=== PATIENT | female | born 1945 | race Caucasian/White ===

== ENCOUNTER 2016-07-05 08:45 | Inpatient (IN) | payer MEDICARE ==
[~2016-07-05] VITALS: Ht 154.9 cm; Wt 43.5 kg
[~2016-07-05 08:45] MED LIST: ALPR0.5T PO; AMLO5TAB2 PO; ATOR20TA58 PO; CALC-104 PO; CARV12.52 PO; CARV6.252 PO; CEFP200T PO; CITA10TA4 PO; CITA10TA8 PO; CLON1TAB3 PO; CRESTOR10 MG PO; ESOM40CA PO; FURO40TA4 PO; HYDR-2762 PO; LEVO88TA4 PO; LOSA100T2 PO; LOSA100T6 PO; MELO-150 PO; NAPR500T3 PO; PANT40TA5 PO; POTA20TA12 PO; POTA500T5 PO; PROAIR HFA8.5 GM IH; RISE35TA3 PO
--- NOTE | 2016-07-05 08:58 | PHYS DOC ---
Past Medical History Past Medical History: COPD Additional Past Medical Histor: chronic pain, femur fx, hip fx, poor historian Past Surgical History: Appendectomy, Cholecystectomy, Hysterectomy Additional Past Surgical Histo: poor historian Alcohol Use: None Drug Use: None Adult General HPI HPI Patient is a 70 year old female who presents with for failure. According EMS they were called to house where she was laying in bed satting around 70% with her nasal cannula off. She was very confused at that time. Upon presenting to the ER after being bagged by EMS and a nonrebreather now she is alert and somewhat interactive. HEENT her previous chart she has a history of COPD, with an EF of 40-45% on last echo, paroxysmal A. fib, hypertension, coronary disease, previous CVA, dyslipidemia, anemia of chronic disease, hypothyroidism. According to her who just arrived this is different than her baseline. She will not answer questions appropriately and smiles at you. Which is an improvement from what was initially upon arrival. Review of Systems Review of Systems Unable to obtain Current Medications Current Medications Current Medications Medications (Trade) Dose Ordered Sig/Josephine Start Time Stop Time Status Last Admin Dose Admin Albuterol/ Ipratropium (Duoneb) 3 ml 1X ONCE 07/05/16 09:15 07/05/16 09:16 DC 07/05/16 10:40 3 ML Methylprednisolone Sodium Succinate (Solu-Medrol 125mg Vial) 125 mg 1X ONCE 07/05/16 09:00 07/05/16 09:02 DC 07/05/16 09:18 125 MG Allergies Allergies Allergies Coded Allergies Type Severity Reaction Last Updated Verified adhesive Allergy Intermediate Rash 11/12/15 Yes Physical Exam Physical Exam Constitutional: Well developed, well nourished, no acute distress, non-toxic appearance. [] HENT: Normocephalic, atraumatic, bilateral external ears normal, oropharynx moist, no oral exudates, nose normal. [] Eyes: PERRLA, EOMI, conjunctiva normal, no discharge. [] Neck: Normal range of motion, no tenderness, supple, no stridor. [] Cardiovascular:Heart rate regular rhythm, no murmur [] Lungs & Thorax: Bilateral breath sounds coarse and decreased at the bases to auscultation [] Abdomen: Bowel sounds normal, soft, no tenderness, no masses, no pulsatile masses. [] Skin: Warm, dry, no erythema, no rash. [] Back: No tenderness, no CVA tenderness. [] Extremities: No tenderness, no cyanosis, no clubbing, ROM intact, no edema. [] Neurologic: Alert and mildly interactive, normal motor function, normal sensory function, no focal deficits noted. [] Current Patient Data Vital Signs Vital Signs Date Time Temp Pulse Resp B/P Pulse Ox O2 Delivery O2 Flow Rate FiO2 07/05/16 10:00 92 21 121/66 87 Nasal Cannula 2 07/05/16 08:45 96.9 96.9 Lab Values Laboratory Tests Test 07/05/16 08:56 07/05/16 09:00 O2 Saturation 99% (92-99) Arterial Blood pH 7.32 (7.35-7.45) L Arterial Blood pCO2 at Patient Temp 80mmHg (35-46) *H Arterial Blood pO2 at Patient Temp 331mmHg (65-108) H Arterial Blood HCO3 40mmol/L (21-28) H Arterial Blood Base Excess 11mmol/L (-3-3) H FiO2 100 White Blood Count 9.2x10^3/uL (4.0-11.0) Red Blood Count 4.27x10^6/uL (3.50-5.40) Hemoglobin 13.4g/dL (12.0-15.5) Hematocrit 40.5% (36.0-47.0) Mean Corpuscular Volume 95fL (79-100) Mean Corpuscular Hemoglobin 31pg (25-35) Mean Corpuscular Hemoglobin Concent 33g/dL (31-37) Red Cell Distribution Width 14.2% (11.5-14.5) Platelet Count 168x10^3/uL (140-400) Neutrophils (%) (Auto) 87% (31-73) H Lymphocytes (%) (Auto) 7% (24-48) L Monocytes (%) (Auto) 6% (0-9) Eosinophils (%) (Auto) 0% (0-3) Basophils (%) (Auto) 1% (0-3) Neutrophils # (Auto) 7.9x10^3uL (1.8-7.7) H Lymphocytes # (Auto) 0.6x10^3/uL (1.0-4.8) L Monocytes # (Auto) 0.5x10^3/uL (0.0-1.1) Eosinophils # (Auto) 0.0x10^3/uL (0.0-0.7) Basophils # (Auto) 0.1x10^3/uL (0.0-0.2) Prothrombin Time 12.6SEC (11.7-14.0) Prothrombin Time INR 1.0 (0.8-1.1) Sodium Level 143mmol/L (136-145) Potassium Level 4.5mmol/L (3.5-5.1) Chloride Level 97mmol/L (98-107) L Carbon Dioxide Level > 45mmol/L (21-32) H Anion Gap 1 (6-14) L Blood Urea Nitrogen 24mg/dL (7-20) H Creatinine 0.7mg/dL (0.6-1.0) Estimated GFR (Cockcroft-Gault) 82.7 Glucose Level 135mg/dL (70-99) H Lactic Acid Level 3.4mmol/L (0.4-2.0) H Calcium Level 9.7mg/dL (8.5-10.1) Magnesium Level 2.4mg/dL (1.8-2.4) Total Bilirubin 0.5mg/dL (0.2-1.0) Direct Bilirubin 0.1mg/dL (0.0-0.2) Aspartate Amino Transferase (AST) 50U/L (15-37) H Alanine Aminotransferase (ALT) 45U/L (14-59) Alkaline Phosphatase 64U/L (46-116) Creatine Kinase 40U/L (26-192) Creatine Kinase MB (Mass) 2.5ng/mL (0.0-3.6) Creatine Kinase MB Relative Index % (0-4) Troponin I Quantitative 0.415ng/mL (0.000-0.055) DA-Smn-H-Type Natriuretic Peptide 3948pg/mL (0-124) H Total Protein 7.2g/dL (6.4-8.2) Albumin 3.6g/dL (3.4-5.0) Triglycerides Level 74mg/dL (0-150) Cholesterol Level 210mg/dL (0-200) H LDL Cholesterol, Calculated 109mg/dL (0-100) H VLDL Cholesterol, Calculated 15mg/dL (0-40) HDL Cholesterol 86mg/dL (40-60) H Cholesterol/HDL Ratio 2.4 Thyroid Stimulating Hormone (TSH) 7.155uIU/mL (0.358-3.74) H Laboratory Tests 07/05/16 09:00 Laboratory Tests 07/05/16 09:00 EKG EKG EKG shows sinus rhythm with rate of [address] elevations or T-wave inversions appreciated, left axis deviation, as interpreted by me. Radiology/Procedures Radiology/Procedures [facility] [address] [place] [address] IMAGING REPORT Signed PATIENT: TERRIE RUBIO ACCOUNT: [id number] : 1945 LOCATION: ER AGE: 70 SEX: F EXAM STATUS: PRE ER ORD. PHYSICIAN: KRISTEN MCNEAL MD REASON: Respiratory failure PROCEDURE: PORTABLE CHEST 1V INDICATION: Respiratory failure COMPARISON: 11/11/2015 FINDINGS: Single view of chest obtained. Coarsened interstitial opacities are again seen bilaterally. Cardiac silhouette is again enlarged with calcific atherosclerosis. Deformity right proximal humerus could be from old fracture. Multiple old right rib fractures. IMPRESSION: Coarse interstitial opacities throughout the bilateral lungs. A portion of this is likely secondary to chronic lung disease but superimposed interstitial edema or infiltrate is possible DICTATED and SIGNED BY: ABBIE PIERSON MD DATE: 07/05/16927 CC: KRISTEN MCNEAL MD; SOLITARIO NAYAK Jr, MD ~ Impressions: Respiratory failure Altered mental status COPD Proximal A. fib Coronary artery disease Course & Med Decision Making Course & Med Decision Making Pertinent Labs and Imaging studies reviewed. (See chart for details) She presented with hypoxemia and after being in the ER on a nonrebreather her ABG shows an PO2 of 331. She is being titrated down to an O2 sat of 88% or higher. Chest x-ray shows a small infiltrate. She is 30 given Solu-Medrol and DuoNeb's. CT head and ABG pending at this time. She does have an elevated troponin of 0.4. We'll admit to the hospitalist. Emmanuel Disclaimer Emmanuel Disclaimer This electronic medical record was generated, in whole or in part, using a voice recognition dictation system. Departure Departure Impression: Primary Impression: COPD (chronic obstructive pulmonary disease) Disposition: ADMITTED INPATIENT Admitting Physician: Crystal Griggs Condition: STABLE Referrals: SOLITARIO NAYAK Jr, MD (PCP) KRISTEN MCNEAL MD Jul 05, 2016 08:58
[2016-07-05] MEDS ORDERED: methylPREDNISolone SOD SUCC PF 125 MG/2 ML VIAL. IV ONE (09:00)
[2016-07-05] MEDS ORDERED: IPRATRPIUM/ALBUTEROL 0.5/2.5MG 3 ML NEBU. NEB ONE (09:15)
[2016-07-05 09:31] LABS: BLOOD UREA NITROGEN 24 mg/dL (7-20); CALCIUM 9.7 mg/dL (8.5-10.1); CHLORIDE 97 mmol/L (98-107); CREATININE 0.7 mg/dL (0.6-1.0); GFR 82.7; GLUCOSE 135 mg/dL (70-99); POTASSIUM 4.5 mmol/L (3.5-5.1); SODIUM 143 mmol/L (136-145)
--- NOTE | 2016-07-05 09:31 | EKG ---
[facility] [address] [place] [address] Test Date: 2016-07-05 Test Time: 09:16:22 Pat Name: TERRIE RUBIO Department: Room: Gender: F Combine Inspector: : 1945 Requested By: KRISTEN MCNEAL Order Number: [id number] Reading MD: Measurements Intervals [place] Rate: 94 P: 50 [place]: 146 QRS: -1 QRSD: 114 T: 47 QT: 378 QTc: 478 Interpretive Statements SINUS RHYTHM LEFTWARD AXIS QRS(T) CONTOUR ABNORMALITY CONSIDER ANTEROSEPTAL MYOCARDIAL DAMAGE CONSISTENT WITH INFERIOR INFARCT PROBABLY OLD RI6.01 Unconfirmed report No previous ECG available for comparison
[2016-07-05 09:35] LABS: ALBUMIN 3.6 g/dL (3.4-5.0); ALK PHOS 64 U/L (46-116); ALT (SGPT) 45 U/L (14-59); AST (SGOT) 50 U/L (15-37); BASO # 0.1 x10^3/uL (0.0-0.2); BASO % 1 % (0-3); DIRECT BILIRUBIN 0.1 mg/dL (0.0-0.2); EOS % 0 % (0-3); HEMATOCRIT 40.5 % (36.0-47.0); HEMOGLOBIN 13.4 g/dL (12.0-15.5); LYMPH # 0.6 x10^3/uL (1.0-4.8); LYMPH % 7 % (24-48); MAGNESIUM 2.4 mg/dL (1.8-2.4); MEAN CORPUSCULAR HEMOGLOBIN 31 pg (25-35); MEAN CORPUSCULAR HGB CONC 33 g/dL (31-37); MEAN CORPUSCULAR VOLUME 95 fL (79-100); MONO % 6 % (0-9); NEUT % 87 % (31-73); PLATELET COUNT 168 x10^3/uL (140-400); RED BLOOD COUNT 4.27 x10^6/uL (3.50-5.40); RED CELL DISTRIBUTION WIDTH 14.2 % (11.5-14.5); TOTAL BILIRUBIN 0.5 mg/dL (0.2-1.0); TOTAL PROTEIN 7.2 g/dL (6.4-8.2); WHITE BLOOD COUNT 9.2 x10^3/uL (4.0-11.0)
--- NOTE | 2016-07-05 09:37 | RAD ---
INDICATION: Respiratory failure COMPARISON: 11/11/2015 FINDINGS: Single view of chest obtained. Coarsened interstitial opacities are again seen bilaterally. Cardiac silhouette is again enlarged with calcific atherosclerosis. Deformity right proximal humerus could be from old fracture. Multiple old right rib fractures. IMPRESSION: Coarse interstitial opacities throughout the bilateral lungs. A portion of this is likely secondary to chronic lung disease but superimposed interstitial edema or infiltrate is possible
[2016-07-05 09:38] LABS: ANION GAP 1 (6-14); CARBON DIOXIDE > 45 mmol/L (21-32)
[2016-07-05 09:48] LABS: CKMB MASS 2.5 ng/mL (0.0-3.6); CREATINE KINASE 40 U/L (26-192)
[2016-07-05 09:50] LABS: HCO3 ABG 40 mmol/L (21-28); PH ABG 7.32 (7.35-7.45); PO2 ABG 331 mmHg (65-108); SAT O2 ABG 99 % (92-99)
[2016-07-05 09:57] LABS: PROTHROMBIN TIME PATIENT 12.6 SEC (11.7-14.0)
[2016-07-05] MEDS ORDERED: CEFTRIAXONE 1GM IVPB FOR OMNI 50 ML IV ONE (10:15)
[2016-07-05] MEDS ORDERED: AZITHRMYCN 500MG IVPB FOR OMNI 250 ML IV ONE (10:15)
[2016-07-05 10:42] LABS: BILIRUBIN,URINE SMALL (NEG); GLUCOSE,URINE NEGATIVE (NEG); NITRITE,URINE NEGATIVE (NEG); PROTEIN,URINE NEGATIVE (NEG-TRACE)
[2016-07-05 11:00] LABS: RBC,URINE OCC /HPF (0-2)
[2016-07-05 11:01] LABS: BACTERIA,URINE 0 /HPF (0-FEW)
--- NOTE | 2016-07-05 11:09 | ACF ---
Admission Forms Criteria COPD Clinical Indications for Admission to Inpatient Care (Place 'X' for any and all applicable criteria): Admission is indicated for ANY ONE of the following (1)(2)(3): [ ]I. Acute exacerbation by high-risk comorbidity (e.g., pneumonia, dysrhythmia, heart failure, pleural effusion, pneumothorax) or severe underlying COPD (e.g., steroid dependent) [X]II. Inpatient admission required rather than observation care (see Chronic Obstructive Pulmonary Disease: Observation Care) because of ANY ONE of the following: [ ]a) New or pre-existing signs or symptoms of COPD (eg, dyspnea or Tachypnea at rest or with minimal activity) that persist despite outpatient and observation care treatment [X]b) New-onset hypoxemia (room air SaO2 less than 90%, PO2 less than 60 mm Hg (8.0 kPa)) that persists despite outpatient and observation care treatment [ ]c) Worsening of pre-existing hypoxemia (eg, new or increased requirement for supplemental oxygen to maintain oxygenation at baseline level) that persists despite outpatient and observation care treatment, with oxygen treatment needs performable only in acute inpatient setting [ ]d) Hypercarbia (PCO2 greater than 40 mm Hg (5.3 kPa))-induced respiratory acidosis (pH less than 7.35) that persists despite outpatient and observation care treatment [ ]e) Supplemental oxygen or respiratory treatments for over 24 hours that are performable only in acute inpatient setting [ ]f) Chest tube placement with active evacuation (e.g., suction, drainage) (5) [ ]g) Other condition, treatment or monitoring requiring inpatient admission [ ]III. Planned invasive surgical or diagnostic procedures requiring acute- care hospitalization [ ]IV. Acute respiratory failure (e.g., uncompensated hypercarbia, severe hypoxemia) [ ]V. Severe comorbid condition (e.g., severe steroid myopathy, acute vertebral fracture) that has acutely worsened pulmonary function [ ]. Confusion state, lethargy, obtundation, stupor or coma Extended stay beyond goal length of stay may be needed for (31)(32): [ ]a ) Respiratory Failure. [ ]b) Severe or persisting hypoxemia or hypercarbia [ ]c) Severe or persistent dyspnea [ ]d) Comorbidities (e.g. chronic heart failure, atrial fibrillation with rapid response, pneumonia) [ ]e) Malnutrition The original [facility] content created by [facility] has been revised. The portions of the content which have been revised are identified through the use of italic text or in bold, and [facility] has neither reviewed nor approved the modified material. All other unmodified content is copyright [facility]. Please see references footnoted in the original [facility] edition 2016 Admission Criteria Met?: Yes ANA GONZALEZ Jul 05, 2016 11:09
[2016-07-05 11:31] LABS: PCO2 ABG 80 mmHg (35-46)
[2016-07-05 11:32] LABS: FIO2 ABG 100
--- NOTE | 2016-07-05 11:38 | RAD ---
CT of the head without contrast, 07/05/2016 : History: Altered mental status Comparison is made to a study from 11/06/2015. There are moderate patchy deep white matter lucencies bilaterally compatible with chronic ischemic change. Similar findings were present on the previous study. The ventricles are within normal limits in size. There is no shift of the midline structures. There is an unchanged lucency in the left cerebellar hemisphere compatible with an old infarct. There is no evidence of acute intracranial hemorrhage or mass effect. IMPRESSION: 1. Chronic findings as described above. 2. No acute intracranial abnormality is detected. PQRS Compliance Statement: One or more of the following individualized dose reduction techniques were utilized for this examination: 1. Automated exposure control 2. Adjustment of the mA and/or kV according to patient size 3. Use of iterative reconstruction technique
[2016-07-05 12:00] VITALS: BP 121/60
[2016-07-05 13:18] LABS: HCO3 ABG 41 mmol/L (21-28); PH ABG 7.36 (7.35-7.45); SAT O2 ABG 82 % (92-99)
--- NOTE | 2016-07-05 13:38 | PDOC2 ---
LARON SALINAS CARD TENDER 07/05/16 1337: CARDIAC CONSULT DATE OF CONSULT Date of Consult DATE: 07/05/16 TIME: 13:12 REASON FOR CONSULT Reason for Consult: troponin leak REFERRING PHYSICIAN Referring Physician: Micah SOURCE Source: Chart review, Patient HISTORY OF PRESENT ILLNESS HISTORY OF PRESENT ILLNESS This is a 70 yo female admitted for hypoxia. She has dementia, a poor historian and no family member is present. She lives in her home with her spouse. Per chart review she was noted at home sitting in bed with O2 sat of 70 % and more confused compared to her baseline. Talked to staff that had a conversation with her spouse and told me that she was likely off her O2 typically at 3LPM part of the night. There was no notation of chest pain complains, nausea, or vomiting. No noted fever. Currently she denies any discomfort, alert, oriented to place and self. She appears mainly WC bound with dementia. PAST MEDICAL HISTORY Past Medical History Cardiovascular: CAD, HTN, Hyperlipidemia, CHF, PAFIB Pulmonary: COPD with O2 use, pneumonia CENTRAL NERVOUS SYSTEM: CVA, RLS, dementia GI: GERD Heme/Onc: Anemia Hepatobiliary: No pertinent hx MSK: OA, traumatic fall, osteopenia Psych: Anxiety, depression Rheumatologic: No pertinent hx Infectious disease: No pertinent hx Renal/: urinary incontinence Endocrine: Hypothyroidism PAST SURGICAL HISTORY Past Surgical History Appendectomy, Cholecystectomy, Hernia Repair, right femur ORIF, RTHA FAMILY HISTORY Family History: Heart Disease SOCIAL HISTORY Smoke: No ALCOHOL: none Drugs: None Lives: with Family CURRENT MEDICATIONS CURRENT MEDICATIONS Current Medications Medications (Trade) Dose Ordered Sig/Josephine Route PRN Reason Start Time Stop Time Status Last Admin Dose Admin Methylprednisolone Sodium Succinate (Solu-Medrol 125mg Vial) 125 mg 1X ONCE IV 07/05/16 09:00 07/05/16 09:02 DC 07/05/16 09:18 Albuterol/ Ipratropium 3 ml 3 ml 1X ONCE NEB 07/05/16 09:15 07/05/16 09:16 DC 07/05/16 10:40 Ceftriaxone Sodium (Rocephin 1gm Ivpb For Omni) 50 ml @ 100 mls/hr 1X ONCE IV 07/05/16 10:15 07/05/16 10:44 DC 07/05/16 10:48 ALLERGIES ALLERGIES: Coded Allergies: adhesive (Verified Allergy, Intermediate, Rash, 6/26/16) ROS Review of System limited, poor historian PHYSICAL EXAM General: Alert, Cooperative, mild distress, Other (cachectic) HEENT: Atraumatic, Mucous membr. moist/pink, Other (JVD) Lungs: Other (diffuse crackles, diminished; tachypnea) Heart: Regular rate, Normal S1, Normal S2, Other (2/6 systolic murmur to LLS border; S4) Abdomen: Soft, No tenderness Extremities: No cyanosis, Other (1+ bilateral LE pitting edema) Skin: No breakdown, No significant lesion Neuro: Normal speech, Sensation intact Psych/Mental Status: Other (calm, oriented to self and place, tangential thought process) MUSCULOSKELETAL: Osteoarthritic changes both hands VITALS VITALS Vital Signs Date Time Temp Pulse Resp B/P Pulse Ox O2 Delivery O2 Flow Rate FiO2 07/05/16 10:48 95 Nasal Cannula 3.0 07/05/16 08:45 96.9 89 16 124/63 96.9 LABS Lab: Laboratory Tests Test 07/05/16 08:56 07/05/16 09:00 07/05/16 10:33 O2 Saturation 99% (92-99) Arterial Blood pH 7.32 (7.35-7.45) Arterial Blood pCO2 at Patient Temp 80mmHg (35-46) Arterial Blood pO2 at Patient Temp 331mmHg (65-108) Arterial Blood HCO3 40mmol/L (21-28) Arterial Blood Base Excess 11mmol/L (-3-3) FiO2 100 White Blood Count 9.2x10^3/uL (4.0-11.0) Red Blood Count 4.27x10^6/uL (3.50-5.40) Hemoglobin 13.4g/dL (12.0-15.5) Hematocrit 40.5% (36.0-47.0) Mean Corpuscular Volume 95fL (79-100) Mean Corpuscular Hemoglobin 31pg (25-35) Mean Corpuscular Hemoglobin Concent 33g/dL (31-37) Red Cell Distribution Width 14.2% (11.5-14.5) Platelet Count 168x10^3/uL (140-400) Neutrophils (%) (Auto) 87% (31-73) Lymphocytes (%) (Auto) 7% (24-48) Monocytes (%) (Auto) 6% (0-9) Eosinophils (%) (Auto) 0% (0-3) Basophils (%) (Auto) 1% (0-3) Neutrophils # (Auto) 7.9x10^3uL (1.8-7.7) Lymphocytes # (Auto) 0.6x10^3/uL (1.0-4.8) Monocytes # (Auto) 0.5x10^3/uL (0.0-1.1) Eosinophils # (Auto) 0.0x10^3/uL (0.0-0.7) Basophils # (Auto) 0.1x10^3/uL (0.0-0.2) Prothrombin Time 12.6SEC (11.7-14.0) Prothromb Time International Ratio 1.0 (0.8-1.1) Sodium Level 143mmol/L (136-145) Potassium Level 4.5mmol/L (3.5-5.1) Chloride Level 97mmol/L (98-107) Carbon Dioxide Level > 45mmol/L (21-32) Anion Gap 1 (6-14) Blood Urea Nitrogen 24mg/dL (7-20) Creatinine 0.7mg/dL (0.6-1.0) Estimated GFR (Cockcroft-Gault) 82.7 Glucose Level 135mg/dL (70-99) Lactic Acid Level 3.4mmol/L (0.4-2.0) Calcium Level 9.7mg/dL (8.5-10.1) Magnesium Level 2.4mg/dL (1.8-2.4) Total Bilirubin 0.5mg/dL (0.2-1.0) Direct Bilirubin 0.1mg/dL (0.0-0.2) Aspartate Amino Transf (AST/SGOT) 50U/L (15-37) Alanine Aminotransferase (ALT/SGPT) 45U/L (14-59) Alkaline Phosphatase 64U/L (46-116) Creatine Kinase 40U/L (26-192) Creatine Kinase MB (Mass) 2.5ng/mL (0.0-3.6) Creatine Kinase MB Relative Index % (0-4) Troponin I Quantitative 0.415ng/mL (0.000-0.055) TX-Tdh-Z-Type Natriuretic Peptide 3948pg/mL (0-124) Total Protein 7.2g/dL (6.4-8.2) Albumin 3.6g/dL (3.4-5.0) Thyroid Stimulating Hormone (TSH) 7.155uIU/mL (0.358-3.74) Urine Collection Type U cath Urine Color Yellow Urine Clarity Clear Urine pH 6.0 Urine Specific [place] 1.020 Urine Protein Negativemg/dL (NEG-TRACE) Urine Glucose (UA) Negativemg/dL (NEG) Urine Ketones (Stick) Negativemg/dL (NEG) Urine Blood Negative (NEG) Urine Nitrite Negative (NEG) Urine Bilirubin Small (NEG) Urine Urobilinogen Dipstick 1.0mg/dL (0.2 mg/dL) Urine Leukocyte Esterase Negative (NEG) Urine RBC Occ/HPF (0-2) Urine WBC 1-4/HPF (0-4) Urine Squamous Epithelial Cells None/LPF Urine Transitional Epithelial Cells Occ/LPF Urine Bacteria 0/HPF (0-FEW) Urine Hyaline Casts Occasional/HPF Urine Mucus Slight/LPF ECHOCARDIOGRAM ECHOCARDIOGRAM <Conclusion> Left ventricle systolic function is mildly impaired. EF 40-45%. Mild global hypokinesis. Cannot rule out inferoseptal hypokinesis. Doppler and Color Flow revealed trace tricuspid regurgitation. The PA pressure was estimated at 40 mmHg. Technically difficult study. Consider limited repeat echo when patient off CPAP therapy and able to be positioned for better image quality DATE: 11/07/15 1514 <Conclusion> The left ventricular systolic function is normal. The Ejection Fraction is estimated at 55-60%. There is normal LV segmental wall motion. Transmitral Doppler flow pattern is Grade I-abnormal relaxation pattern. Doppler and Color-flow revealed trace mitral regurgitation. Doppler and Color Flow revealed trace tricuspid valve regurgitation. The PA pressure was estimated at 28 mmHg. There is no evidence of significant pericardial effusion. DATE: 12/30/14 1645 ASSESSMENT/PLAN ASSESSMENT/PLAN 1. Hypoxic encephalopathy with underlying dementia: mentation appears to be better 2. Acute on chronic respiratory failure with underlying COPD 3. Acute on chronic systolic CHF: last known EF at 40-45%, superimposed by respiratory failure 4. Elevated troponin: likely type 2, demand mediated as above acute conditions. Initial troponin at 0.4. 5. PAFIB: currently on SR. 6. CAD: unable to decipher any LHC in the past and when, failed follow up in the past for f/u MPI, currently CP free 7. HTN/HLP: controlled BP, lipids not on goal 8. Hypothyroidism: TSH not at therapeutic level at 7.1. Not taking replacement on an empty stomach or skipping dose? 9. Prerenal azotemia 10. Possible noncompliance Recommendations 1. Bipap. Pulmonary consult 2. Continue with diuretic therapy 3. EKG SR/LVH unchanged by comparison. TTE today 4. Unable to place on OAC/NOAC in the past due to significant anemia, multiple falls with underlying dementia. Continue on ASA fro stroke prevention 5. Was placed on cardizem in the past which she converted to SR but appears to be responding ok with coreg. 6. Continue with secondary prevention. 7. Slow maintenance IVF, till po hydration is optimal 8. Lipid panel, trend troponin 9. With multiple chronic comorbid conditions, will need to discuss conservative vs aggressive approach going forward. Defer to PCP Problems: NISHA FLANAGAN MD 07/05/16 1437: CARDIAC CONSULT ALLERGIES ALLERGIES: Coded Allergies: adhesive (Verified Allergy, Intermediate, Rash, 11/12/15) ASSESSMENT/PLAN ASSESSMENT/PLAN Patient seen and examined Acute on chronic respiratory failure. Patient improving. Probable combination of COPD and underlying heart disease. Pulmonary consult pending. Continue medications with echocardiogram today. Minimally elevated troponin. We'll continue to monitor. No acute EKG changes. Consistent with demand ischemia. Echocardiogram pending. Paroxysmal atrial fibrillation. Currently in sinus rhythm. Continue present medications and monitor. Encephalopathy probably secondary to hypoxia. Patient is slowly improving. Hypertension. Continue present medications and monitoring. Hyperlipidemia. Statins. Hypothyroidism as per the primary service. Thank you for allowing us to participate in the care of your patient. Problems: LARON SALINAS APRN Jul 05, 2016 13:37 NISHA FLANAGAN MD Jul 05, 2016 14:37
[2016-07-05 13:51] LABS: FIO2 ABG 28; PCO2 ABG 74 mmHg (35-46); PO2 ABG 50 mmHg (65-108)
[2016-07-05] MEDS: FUROSEMIDE 40 MG TABLET PO SCH (14:00)
[2016-07-05 14:06] LABS: CHOLESTEROL/HDL RATIO 2.4
[2016-07-05] MEDS ORDERED: FUROSEMIDE 20 MG/2 ML VIAL IVP ONE (14:15)
--- NOTE | 2016-07-05 15:04 | CARD ---
APPROVED REPORT EXAM: Two-dimensional and M-mode echocardiogram with Doppler and color Doppler. Other Information Quality : GoodHR: 86bpm Rhythm : NSR INDICATION CHF 2D DIMENSIONS RVDd2.3 (2.9-3.5cm)Left Atrium(2D)4.2 (1.6-4.0cm) IVSd1.0 (0.7-1.1cm)Aortic Root(2D)2.7 (2.0-3.7cm) LVDd5.9 (3.9-5.9cm)LVOT Diameter2.1 (1.8-2.4cm) PWd0.1 (0.7-1.1cm) Aortic Valve AoV Peak Tanner.107.7cm/sAoV VTI19.6cm AO Peak GR.4.6mmHgLVOT Peak Tanner.59.2cm/s AO Mean GR.3mmHgAVA (VMAX)1.94cm2 Mitral Valve MV E Scxqafgm32.7cm/sMV E Peak Gr.3mmHg MV DECEL [id number] A Iypvuplt38.4cm/s MV E Mean Gr.2mmHgE/A Ratio0.9 MV A [id number] Tricuspid Valve TR P. [id number]/sTR Peak Gr.30mmHg LEFT VENTRICLE The Left Ventricle is mildly dilated. There is normal left ventricular wall thickness. Left ventricle systolic function is severely impaired. The Ejection Fraction is 10-15 % There is global hypokinesis of the left ventricle. Tissue Doppler imaging reveals moderate left ventricular diastolic dysfunctio n. No left ventricle thrombus noted on this study. RIGHT VENTRICLE The right ventricle is normal size. There is normal right ventricular wall thickness. The right ventr icular systolic function is normal. ATRIA The left atrium is moderately dilated. The right atrium size is normal. The interatrial septum is int act with no evidence for an atrial septal defect or patent foramen ovale as noted on 2-D or Doppler i maging. AORTIC VALVE The aortic valve is mildly sclerotic. Doppler and Color Flow revealed mild aortic regurgitation. Ther e is no significant aortic valvular stenosis. MITRAL VALVE The mitral valve leaflets are thickened. There is no evidence of mitral valve prolapse. There is no m itral valve stenosis. Doppler and Color Flow revealed moderate to severe eccentric mitral regurgitati on. TRICUSPID VALVE Doppler and Color Flow revealed mild tricuspid regurgitation. The pulmonary artery systolic pressure is estimated at 40 mmHg. There is mild pulmonary hypertension. PULMONIC VALVE Doppler and Color Flow revealed mild pulmonic valvular regurgitation. There is no pulmonic valvular s tenosis. GREAT VESSELS The aortic root is normal in size. The ascending aorta is normal in size. The IVC is dilated and kana apses <50% with inspiration. PERICARDIAL EFFUSION There is no evidence of significant pericardial effusion. Critical Notification Critical Value: No <Conclusion> Left ventricle systolic function is severely impaired. The Ejection Fraction is 10-15 % There is global hypokinesis of the left ventricle. Doppler and Color Flow revealed mild aortic regurgitation. Doppler and Color Flow revealed moderate to severe eccentric mitral regurgitation. The IVC is dilated and collapses <50% with inspiration.
[2016-07-05] MEDS: AMLODIPINE BESYLATE 5 MG TABLET PO SCH (17:13)
[2016-07-05] MEDS: LOSARTAN POTASSIUM 50 MG TABLET. PO SCH (17:13)
[2016-07-05] MEDS: PANTOPRAZOLE 40 MG TABLET. PO SCH (17:13)
[2016-07-05] MEDS: CITALOPRAM 10 MG TABLET. PO SCH (17:22)
[2016-07-05] MEDS: CARVEDILOL 6.25 MG TABLET PO SCH (17:38)
[2016-07-05] MEDS: IV NORMAL SALINE 1000ML BAG 1,000 ML IV SCH (17:39)
[2016-07-05] MEDS ORDERED: HEPARIN for IV BOLUS 10,000 UNIT/10 ML VIAL. IV PRN (18:00)
[2016-07-05] MEDS ORDERED: ALBUTEROL SULFATE 2.5 MG/3 ML NEBU. NEB PRN (18:00)
--- NOTE | 2016-07-05 18:04 | PDOC ---
PULMONARY PROGRESS NOTES Vitals Vital Signs Date Time Temp Pulse Resp B/P Pulse Ox O2 Delivery O2 Flow Rate FiO2 07/05/16 17:38 83 121/60 07/05/16 15:03 BiPAP/CPAP 07/05/16 13:13 2.0 07/05/16 11:00 20 88 07/05/16 08:45 96.9 96.9 General: Alert, Oriented X4, No acute distress Lungs: Other Cardiovascular: S1 Abdomen: Soft, Non-tender Extremities: No Edema Labs Laboratory Tests Test 07/05/16 08:56 07/05/16 09:00 07/05/16 10:33 07/05/16 12:56 O2 Saturation 99% (92-99) 82% (92-99) Arterial Blood pH 7.32 (7.35-7.45) 7.36 (7.35-7.45) Arterial Blood pCO2 at Patient Temp 80mmHg (35-46) 74mmHg (35-46) Arterial Blood pO2 at Patient Temp 331mmHg (65-108) 50mmHg (65-108) Arterial Blood HCO3 40mmol/L (21-28) 41mmol/L (21-28) Arterial Blood Base Excess 11mmol/L (-3-3) 12mmol/L (-3-3) FiO2 100 28 White Blood Count 9.2x10^3/uL (4.0-11.0) Red Blood Count 4.27x10^6/uL (3.50-5.40) Hemoglobin 13.4g/dL (12.0-15.5) Hematocrit 40.5% (36.0-47.0) Mean Corpuscular Volume 95fL (79-100) Mean Corpuscular Hemoglobin 31pg (25-35) Mean Corpuscular Hemoglobin Concent 33g/dL (31-37) Red Cell Distribution Width 14.2% (11.5-14.5) Platelet Count 168x10^3/uL (140-400) Neutrophils (%) (Auto) 87% (31-73) Lymphocytes (%) (Auto) 7% (24-48) Monocytes (%) (Auto) 6% (0-9) Eosinophils (%) (Auto) 0% (0-3) Basophils (%) (Auto) 1% (0-3) Neutrophils # (Auto) 7.9x10^3uL (1.8-7.7) Lymphocytes # (Auto) 0.6x10^3/uL (1.0-4.8) Monocytes # (Auto) 0.5x10^3/uL (0.0-1.1) Eosinophils # (Auto) 0.0x10^3/uL (0.0-0.7) Basophils # (Auto) 0.1x10^3/uL (0.0-0.2) Prothrombin Time 12.6SEC (11.7-14.0) Prothromb Time International Ratio 1.0 (0.8-1.1) Sodium Level 143mmol/L (136-145) Potassium Level 4.5mmol/L (3.5-5.1) Chloride Level 97mmol/L (98-107) Carbon Dioxide Level > 45mmol/L (21-32) Anion Gap 1 (6-14) Blood Urea Nitrogen 24mg/dL (7-20) Creatinine 0.7mg/dL (0.6-1.0) Estimated GFR (Cockcroft-Gault) 82.7 Glucose Level 135mg/dL (70-99) Lactic Acid Level 3.4mmol/L (0.4-2.0) Calcium Level 9.7mg/dL (8.5-10.1) Magnesium Level 2.4mg/dL (1.8-2.4) Total Bilirubin 0.5mg/dL (0.2-1.0) Direct Bilirubin 0.1mg/dL (0.0-0.2) Aspartate Amino Transf (AST/SGOT) 50U/L (15-37) Alanine Aminotransferase (ALT/SGPT) 45U/L (14-59) Alkaline Phosphatase 64U/L (46-116) Creatine Kinase 40U/L (26-192) Creatine Kinase MB (Mass) 2.5ng/mL (0.0-3.6) Creatine Kinase MB Relative Index % (0-4) Troponin I Quantitative 0.415ng/mL (0.000-0.055) ST-Thq-B-Type Natriuretic Peptide 3948pg/mL (0-124) Total Protein 7.2g/dL (6.4-8.2) Albumin 3.6g/dL (3.4-5.0) Triglycerides Level 74mg/dL (0-150) Cholesterol Level 210mg/dL (0-200) LDL Cholesterol, Calculated 109mg/dL (0-100) VLDL Cholesterol, Calculated 15mg/dL (0-40) HDL Cholesterol 86mg/dL (40-60) Cholesterol/HDL Ratio 2.4 Thyroid Stimulating Hormone (TSH) 7.155uIU/mL (0.358-3.74) Urine Collection Type U cath Urine Color Yellow Urine Clarity Clear Urine pH 6.0 Urine Specific [place] 1.020 Urine Protein Negativemg/dL (NEG-TRACE) Urine Glucose (UA) Negativemg/dL (NEG) Urine Ketones (Stick) Negativemg/dL (NEG) Urine Blood Negative (NEG) Urine Nitrite Negative (NEG) Urine Bilirubin Small (NEG) Urine Urobilinogen Dipstick 1.0mg/dL (0.2 mg/dL) Urine Leukocyte Esterase Negative (NEG) Urine RBC Occ/HPF (0-2) Urine WBC 1-4/HPF (0-4) Urine Squamous Epithelial Cells None/LPF Urine Transitional Epithelial Cells Occ/LPF Urine Bacteria 0/HPF (0-FEW) Urine Hyaline Casts Occasional/HPF Urine Mucus Slight/LPF Test 07/05/16 16:05 Troponin I Quantitative 1.470ng/mL (0.000-0.055) Laboratory Tests Test 07/05/16 08:56 07/05/16 09:00 07/05/16 10:33 07/05/16 12:56 O2 Saturation 99% (92-99) 82% (92-99) Arterial Blood pH 7.32 (7.35-7.45) 7.36 (7.35-7.45) Arterial Blood pCO2 at Patient Temp 80mmHg (35-46) 74mmHg (35-46) Arterial Blood pO2 at Patient Temp 331mmHg (65-108) 50mmHg (65-108) Arterial Blood HCO3 40mmol/L (21-28) 41mmol/L (21-28) Arterial Blood Base Excess 11mmol/L (-3-3) 12mmol/L (-3-3) FiO2 100 28 White Blood Count 9.2x10^3/uL (4.0-11.0) Red Blood Count 4.27x10^6/uL (3.50-5.40) Hemoglobin 13.4g/dL (12.0-15.5) Hematocrit 40.5% (36.0-47.0) Mean Corpuscular Volume 95fL (79-100) Mean Corpuscular Hemoglobin 31pg (25-35) Mean Corpuscular Hemoglobin Concent 33g/dL (31-37) Red Cell Distribution Width 14.2% (11.5-14.5) Platelet Count 168x10^3/uL (140-400) Neutrophils (%) (Auto) 87% (31-73) Lymphocytes (%) (Auto) 7% (24-48) Monocytes (%) (Auto) 6% (0-9) Eosinophils (%) (Auto) 0% (0-3) Basophils (%) (Auto) 1% (0-3) Neutrophils # (Auto) 7.9x10^3uL (1.8-7.7) Lymphocytes # (Auto) 0.6x10^3/uL (1.0-4.8) Monocytes # (Auto) 0.5x10^3/uL (0.0-1.1) Eosinophils # (Auto) 0.0x10^3/uL (0.0-0.7) Basophils # (Auto) 0.1x10^3/uL (0.0-0.2) Prothrombin Time 12.6SEC (11.7-14.0) Prothromb Time International Ratio 1.0 (0.8-1.1) Sodium Level 143mmol/L (136-145) Potassium Level 4.5mmol/L (3.5-5.1) Chloride Level 97mmol/L (98-107) Carbon Dioxide Level > 45mmol/L (21-32) Anion Gap 1 (6-14) Blood Urea Nitrogen 24mg/dL (7-20) Creatinine 0.7mg/dL (0.6-1.0) Estimated GFR (Cockcroft-Gault) 82.7 Glucose Level 135mg/dL (70-99) Lactic Acid Level 3.4mmol/L (0.4-2.0) Calcium Level 9.7mg/dL (8.5-10.1) Magnesium Level 2.4mg/dL (1.8-2.4) Total Bilirubin 0.5mg/dL (0.2-1.0) Direct Bilirubin 0.1mg/dL (0.0-0.2) Aspartate Amino Transf (AST/SGOT) 50U/L (15-37) Alanine Aminotransferase (ALT/SGPT) 45U/L (14-59) Alkaline Phosphatase 64U/L (46-116) Creatine Kinase 40U/L (26-192) Creatine Kinase MB (Mass) 2.5ng/mL (0.0-3.6) Creatine Kinase MB Relative Index % (0-4) Troponin I Quantitative 0.415ng/mL (0.000-0.055) YV-Lgo-A-Type Natriuretic Peptide 3948pg/mL (0-124) Total Protein 7.2g/dL (6.4-8.2) Albumin 3.6g/dL (3.4-5.0) Triglycerides Level 74mg/dL (0-150) Cholesterol Level 210mg/dL (0-200) LDL Cholesterol, Calculated 109mg/dL (0-100) VLDL Cholesterol, Calculated 15mg/dL (0-40) HDL Cholesterol 86mg/dL (40-60) Cholesterol/HDL Ratio 2.4 Thyroid Stimulating Hormone (TSH) 7.155uIU/mL (0.358-3.74) Urine Collection Type U cath Urine Color Yellow Urine Clarity Clear Urine pH 6.0 Urine Specific [place] 1.020 Urine Protein Negativemg/dL (NEG-TRACE) Urine Glucose (UA) Negativemg/dL (NEG) Urine Ketones (Stick) Negativemg/dL (NEG) Urine Blood Negative (NEG) Urine Nitrite Negative (NEG) Urine Bilirubin Small (NEG) Urine Urobilinogen Dipstick 1.0mg/dL (0.2 mg/dL) Urine Leukocyte Esterase Negative (NEG) Urine RBC Occ/HPF (0-2) Urine WBC 1-4/HPF (0-4) Urine Squamous Epithelial Cells None/LPF Urine Transitional Epithelial Cells Occ/LPF Urine Bacteria 0/HPF (0-FEW) Urine Hyaline Casts Occasional/HPF Urine Mucus Slight/LPF Test 07/05/16 16:05 Troponin I Quantitative 1.470ng/mL (0.000-0.055) Medications Active Scripts Medications Dose Route/Sig Days Date Category Crestor (Rosuvastatin Calcium) 10 Mg Tablet 1 Tab PO DAILY 6/24/16 Reported Actonel (Risedronate Sodium) 35 Mg Tablet 1 Tab PO WEEKLY 11/10/15 Reported Celexa (Citalopram Hydrobromide) 10 Mg Tablet 1 Tab PO DAILY 11/10/15 Reported Amlodipine Besylate 5 Mg Tablet 5 Mg PO DAILY 11/10/15 Reported Levothyroxine Sodium 88 Mcg Tablet 88 Mcg PO DAILYAC 11/10/15 Reported Atorvastatin Calcium 20 Mg Tablet 20 Mg PO HS 11/10/15 Reported Furosemide 40 Mg Tablet 1 Tab PO DAILY 11/10/15 Reported Carvedilol 6.25 Mg Tablet 1 Tab PO BID 11/10/15 Reported Clonazepam 1 Mg Tablet 1 Tab PO QHS 11/10/15 Reported Potassium Gluconate 500 Mg Tablet 550 Mg PO DAILY 11/10/15 Reported Meloxicam 15 Mg Tablet 1 Tab PO DAILY 11/10/15 Reported Cozaar (Losartan Potassium) 100 Mg Tablet 100 Mg PO DAILY 11/10/15 Reported Pantoprazole Sodium 40 Mg Tablet.dr 1 Tab PO DAILY 11/10/15 Reported Impression . A/C RESP FAILURE SEC TO AECOPD AND MILD HEART FAILURE SEE ORDERS THANKS LETITIA LICEA MD Jul 05, 2016 18:04
[2016-07-05] MEDS: IPRATRPIUM/ALBUTEROL 0.5/2.5MG 3 ML NEBU. NEB SCH (19:27)
[2016-07-05 19:30] VITALS: BP 138/69
[2016-07-05] MEDS: HEPARIN 25,000UTS/500ML PREMIX 500 ML IV PRN (19:55)
[2016-07-05] MEDS: CLONAZEPAM 1 MG TABLET PO SCH (20:39)
[2016-07-05] MEDS: ATORVASTATIN CALCIUM 40 MG TABLET. PO SCH (20:39)
[2016-07-05] MEDS ORDERED: ALBUTEROL SULFATE 2.5 MG/3 ML NEBU. NEB SCH (21:00)
[2016-07-05] MEDS ORDERED: ATORVASTATIN CALCIUM 20 MG TABLET PO SCH (21:00)
[2016-07-05 23:00] VITALS: BP 144/77
--- NOTE | 2016-07-05 23:29 | HP ---
ADMIT DATE: 07/05/2016 CHIEF COMPLAINT: Hypoxic respiratory distress. HISTORY OF PRESENT ILLNESS: The patient is a 70-year-old woman with known O2-dependent COPD as well as CHF with a recent echo in October of last year showing an EF of 40%-45%. She was found this morning by her , sitting in bed, having taken off oxygen, satting about 70% pulse ox. She was very confused at that time, EMS was called and found her essentially in same condition, oxygen had not been replaced. A nonrebreather was placed after a short time of bagging her and she was brought into the Emergency Room. There she was somewhat more interactive. She was admitted to the CVICU for further monitoring and care with recovered pulse ox, but slight troponin leak with a troponin of 0.4. PAST MEDICAL HISTORY: COPD, O2 dependent 3 liters; CHF (EF of 40%-45%); paroxysmal AFib; CAD; hypertension; hyperlipidemia; peripheral vascular disorder with CVA; dementia; RLS; GERD; anemia; osteoarthritis; osteopenia and anxiety/depression. PAST SURGICAL HISTORY: Right heart catheterization, right femur ORIF, hernia repair, appendectomy and cholecystectomy. FAMILY HISTORY: CAD. SOCIAL HISTORY: Lives with her , quit smoking. No other drugs. ALLERGIES: ADHESIVES. MEDICATIONS: MAR reconciled with home medications. REVIEW OF SYSTEMS: The patient is responsive verbally, but is nonsensical. States she is not feeling well, but cannot specify what bothers her. PHYSICAL EXAMINATION: VITAL SIGNS: From today show blood pressure of 121/60, heart rate of 83, respiratory rate of 20, pulse ox of 95% on 3 liters. GENERAL: This is a malnourished, 70-year-old, woman; lying in bed; eyes tracking, responding, minimally verbally. HEENT: Shows no scleral icterus. NECK: Supple. LUNGS: Clear to auscultation bilaterally. HEART: Has regular rate and rhythm. ABDOMEN: Has positive bowel sounds, soft, nontender. EXTREMITIES: Show no edema. SKIN: Warm, soft and dry. LABORATORY DATA: CBC from today shows a WBC of 9.2, hemoglobin 13.4, platelets of 168. Chemistries with a BUN and creatinine of 24 and 0.7. Electrolytes essentially within normal limits safe for a CO2 of greater than 45. LFTs essentially within normal limits. ProBNP of 3900+, initial troponin 0.415. TSH at 7.1. RADIOGRAPHIC IMAGING: Chest x-ray shows coarse interstitial opacities throughout bilateral lungs, likely secondary to chronic lung disease with potentially superimposed interstitial edema or infiltrate. CT of the head showed chronic findings without any acute intracranial abnormality. ASSESSMENT AND PLAN: The patient is a 70-year-old woman with chronic obstructive pulmonary disease, O2 dependent as well as congestive heart failure, coronary artery disease now presenting with acute hypoxic and hypercarbic respiratory distress. Her oxygenation is actually doing quite well. Her CO2 is still excessive most likely worsened by bagging and O2 use in the ambulance and ER. She has been on BiPAP. We will repeat ABG is DAGOBERTO. I suspect she does have a chronic obstructive pulmonary disease exacerbation combined with congestive heart failure. Dr. Ramos from Pulmonary will be consulted as well. She does have a mild troponin leak, which I suspect is secondary to her respiratory distress. She does seem to have a mild congestive heart failure exacerbation, but once again, this may be secondary. I will obtain a cardiac consult as well. We will continue all her cardiac meds for the time being. Her mental status is quite confused, I suspected due to hypoxia. We will have to monitor her as time goes on. I will continue of her other home medications including Synthroid for her hypothyroidism. Her TSH is a bit high, will increase her dose from 88 to 100. For prophylaxis, especially with steroids for her chronic obstructive pulmonary disease exacerbation, will give PPI for stomach prophylaxis and Lovenox for deep venous thrombosis. CONSTANCE IRVIN MD DR: PARKER/nts JOB#: [id number] / [id number] SOLITARIO Roche MD
[2016-07-05] MEDS ORDERED: HALOPERIDOL LACT 5 MG/ML VIAL. IVP PRN ×2 (23:45)
[2016-07-06 03:00] VITALS: BP 137/89
[2016-07-06 03:39] LABS: BASO % 1 % (0-3); EOS % 0 % (0-3); HEMATOCRIT 39.1 % (36.0-47.0); HEMOGLOBIN 12.8 g/dL (12.0-15.5); LYMPH # 1.3 x10^3/uL (1.0-4.8); LYMPH % 16 % (24-48); MEAN CORPUSCULAR HEMOGLOBIN 31 pg (25-35); MEAN CORPUSCULAR HGB CONC 33 g/dL (31-37); MEAN CORPUSCULAR VOLUME 96 fL (79-100); MONO % 15 % (0-9); NEUT % 69 % (31-73); PLATELET COUNT 150 x10^3/uL (140-400); WHITE BLOOD COUNT 7.8 x10^3/uL (4.0-11.0)
[2016-07-06] MEDS ORDERED: ONDANSETRON PF 4 MG/2 ML VIAL. IV PRN (03:45)
[2016-07-06 03:50] LABS: CALCIUM 9.2 mg/dL (8.5-10.1); CREATININE 0.6 mg/dL (0.6-1.0); GFR 98.8; POTASSIUM 4.1 mmol/L (3.5-5.1)
--- NOTE | 2016-07-06 06:48 | CONS ---
DATE OF CONSULTATION: 07/05/2016 ATTENDING PHYSICIAN: Dr. Obrien. REASON FOR CONSULTATION: The patient is seen in pulmonary consultation at the request of Dr. Obrien for [id number] respiratory failure requiring BiPAP. HISTORY OF PRESENT ILLNESS: The patient is a 70-year-old female who is somewhat of a poor historian, but when I walked into her room, she states that she wanted to go home. She is currently off of BiPAP. She presented to the Emergency Department with a low O2 saturation. She states that she wears 3 liters of oxygen supplementation at home. The patient was found to have saturation at 70% without her oxygen supplementation. She was very confused. She was brought to the Emergency Room, initially being bagged, and then on a nonrebreather she was more active. She had a previous history of COPD and cardiomyopathy with ejection fraction of 40% to 45%. She was evaluated in the Emergency Room, admitted. I was asked to see her in consultation. Her arterial blood gas initially revealed a pH of 7.32, PaCO2 of 80, pO2 of 331, bicarb was 40. She had a chest x-ray, which I reviewed. There were increased interstitial lung markings compatible with either CHF or interstitial lung disease. She had a CT head, which was negative. The patient currently denies productive cough. No fever, chills or night sweats. PAST MEDICAL HISTORY: Chronic respiratory failure, COPD, chronic heart failure, hyperlipidemia, hypertension, paroxysmal AFib, CVA, dementia, gastroesophageal reflux, chronic anemia, hypothyroidism. PAST SURGICAL HISTORY: No recent major surgeries. ALLERGIES: No known drug allergies. SOCIAL HISTORY: She quit tobacco she states many years ago. Denies any alcohol intake. CURRENT MEDICATIONS: List was reviewed. Please see the MRAD. REVIEW OF SYSTEMS: As indicated above; otherwise, a 10-point system was reviewed and negative. PHYSICAL EXAMINATION: VITAL SIGNS: The patient was on BiPAP earlier. She is currently on 2 liters of oxygen supplementation, saturation 88% to 87%. HEENT: Eyes: The sclerae were nonicteric. NECK: Jugular venous distention was not elevated. No lymphadenopathy. CHEST: Full expansion. LUNGS: Crackles in the bases with poor airway flows. No wheezes. CARDIOVASCULAR: Regular rate and rhythm, with S1, S2, no S3. ABDOMEN: Soft, nontender, nondistended. EXTREMITIES: No clubbing, cyanosis, or edema. NEUROLOGIC: The patient was awake, alert, following commands. A detailed neuro exam was not performed. LABORATORY DATA: White count was normal. INR was 1.0. Electrolytes were noted. Troponin level was elevated. Total CO2 was elevated. BNP was elevated. Arterial blood gas as indicated above. Repeat arterial blood gas on BiPAP: pH of 7.36, PaCO2 of 74, pO2 of 50. Chest x-ray as indicated above. IMPRESSION: 1. [id number] respiratory failure. 2. Acute exacerbation of chronic obstructive pulmonary disease. 3. Chronic heart failure, possible in conjunction with acute systolic heart failure. 4. Elevated troponin level, suspect secondary to increased demand. 5. Hypothyroidism. 6. Acute metabolic encephalopathy, improved. PLAN: 1. Recommend treating the exacerbation with steroids. 2. No need for antibiotics. 3. Consult Cardiology already performed. 4. Maintain saturations above 88%. Do not increase O2 supplement greater than 3 liters. 5. BiPAP at bedtime. 6. Diurese. I do appreciate the privilege in the patient's care. LETITIA LICEA MD DR: CL/kaur JOB#: [id number] / [id number]
--- NOTE | 2016-07-06 06:59 | PDOC ---
PULMONARY PROGRESS NOTES Subjective on bipap, sob, cough, better, no pain Vitals Vital Signs Date Time Temp Pulse Resp B/P Pulse Ox O2 Delivery O2 Flow Rate FiO2 07/06/16 04:30 90 BiPAP/CPAP 07/06/16 03:00 98.1 81 20 137/89 98.1 07/05/16 19:30 4.0 Comments ros as mentioned as above other sys otherwise neg. General: Alert, Oriented X4, No acute distress HEENT: Other (nc at perrl, ) Lungs: Crackles, Other Cardiovascular: S1 Abdomen: Soft, Non-tender Neuro Exam: Alert Extremities: No Edema Skin: Warm Labs Laboratory Tests Test 07/05/16 08:56 07/05/16 09:00 07/05/16 10:33 07/05/16 12:56 O2 Saturation 99% (92-99) 82% (92-99) Arterial Blood pH 7.32 (7.35-7.45) 7.36 (7.35-7.45) Arterial Blood pCO2 at Patient Temp 80mmHg (35-46) 74mmHg (35-46) Arterial Blood pO2 at Patient Temp 331mmHg (65-108) 50mmHg (65-108) Arterial Blood HCO3 40mmol/L (21-28) 41mmol/L (21-28) Arterial Blood Base Excess 11mmol/L (-3-3) 12mmol/L (-3-3) FiO2 100 28 White Blood Count 9.2x10^3/uL (4.0-11.0) Red Blood Count 4.27x10^6/uL (3.50-5.40) Hemoglobin 13.4g/dL (12.0-15.5) Hematocrit 40.5% (36.0-47.0) Mean Corpuscular Volume 95fL (79-100) Mean Corpuscular Hemoglobin 31pg (25-35) Mean Corpuscular Hemoglobin Concent 33g/dL (31-37) Red Cell Distribution Width 14.2% (11.5-14.5) Platelet Count 168x10^3/uL (140-400) Neutrophils (%) (Auto) 87% (31-73) Lymphocytes (%) (Auto) 7% (24-48) Monocytes (%) (Auto) 6% (0-9) Eosinophils (%) (Auto) 0% (0-3) Basophils (%) (Auto) 1% (0-3) Neutrophils # (Auto) 7.9x10^3uL (1.8-7.7) Lymphocytes # (Auto) 0.6x10^3/uL (1.0-4.8) Monocytes # (Auto) 0.5x10^3/uL (0.0-1.1) Eosinophils # (Auto) 0.0x10^3/uL (0.0-0.7) Basophils # (Auto) 0.1x10^3/uL (0.0-0.2) Prothrombin Time 12.6SEC (11.7-14.0) Prothromb Time International Ratio 1.0 (0.8-1.1) Sodium Level 143mmol/L (136-145) Potassium Level 4.5mmol/L (3.5-5.1) Chloride Level 97mmol/L (98-107) Carbon Dioxide Level > 45mmol/L (21-32) Anion Gap 1 (6-14) Blood Urea Nitrogen 24mg/dL (7-20) Creatinine 0.7mg/dL (0.6-1.0) Estimated GFR (Cockcroft-Gault) 82.7 Glucose Level 135mg/dL (70-99) Lactic Acid Level 3.4mmol/L (0.4-2.0) Calcium Level 9.7mg/dL (8.5-10.1) Magnesium Level 2.4mg/dL (1.8-2.4) Total Bilirubin 0.5mg/dL (0.2-1.0) Direct Bilirubin 0.1mg/dL (0.0-0.2) Aspartate Amino Transf (AST/SGOT) 50U/L (15-37) Alanine Aminotransferase (ALT/SGPT) 45U/L (14-59) Alkaline Phosphatase 64U/L (46-116) Creatine Kinase 40U/L (26-192) Creatine Kinase MB (Mass) 2.5ng/mL (0.0-3.6) Creatine Kinase MB Relative Index % (0-4) Troponin I Quantitative 0.415ng/mL (0.000-0.055) UR-Usm-K-Type Natriuretic Peptide 3948pg/mL (0-124) Total Protein 7.2g/dL (6.4-8.2) Albumin 3.6g/dL (3.4-5.0) Triglycerides Level 74mg/dL (0-150) Cholesterol Level 210mg/dL (0-200) LDL Cholesterol, Calculated 109mg/dL (0-100) VLDL Cholesterol, Calculated 15mg/dL (0-40) HDL Cholesterol 86mg/dL (40-60) Cholesterol/HDL Ratio 2.4 Thyroid Stimulating Hormone (TSH) 7.155uIU/mL (0.358-3.74) Urine Collection Type U cath Urine Color Yellow Urine Clarity Clear Urine pH 6.0 Urine Specific [place] 1.020 Urine Protein Negativemg/dL (NEG-TRACE) Urine Glucose (UA) Negativemg/dL (NEG) Urine Ketones (Stick) Negativemg/dL (NEG) Urine Blood Negative (NEG) Urine Nitrite Negative (NEG) Urine Bilirubin Small (NEG) Urine Urobilinogen Dipstick 1.0mg/dL (0.2 mg/dL) Urine Leukocyte Esterase Negative (NEG) Urine RBC Occ/HPF (0-2) Urine WBC 1-4/HPF (0-4) Urine Squamous Epithelial Cells None/LPF Urine Transitional Epithelial Cells Occ/LPF Urine Bacteria 0/HPF (0-FEW) Urine Hyaline Casts Occasional/HPF Urine Mucus Slight/LPF Test 07/05/16 16:05 07/05/16 22:00 07/06/16 03:15 Troponin I Quantitative 1.470ng/mL (0.000-0.055) 2.447ng/mL (0.000-0.055) White Blood Count 7.8x10^3/uL (4.0-11.0) Red Blood Count 4.10x10^6/uL (3.50-5.40) Hemoglobin 12.8g/dL (12.0-15.5) Hematocrit 39.1% (36.0-47.0) Mean Corpuscular Volume 96fL (79-100) Mean Corpuscular Hemoglobin 31pg (25-35) Mean Corpuscular Hemoglobin Concent 33g/dL (31-37) Red Cell Distribution Width 14.0% (11.5-14.5) Platelet Count 150x10^3/uL (140-400) Neutrophils (%) (Auto) 69% (31-73) Lymphocytes (%) (Auto) 16% (24-48) Monocytes (%) (Auto) 15% (0-9) Eosinophils (%) (Auto) 0% (0-3) Basophils (%) (Auto) 1% (0-3) Neutrophils # (Auto) 5.4x10^3uL (1.8-7.7) Lymphocytes # (Auto) 1.3x10^3/uL (1.0-4.8) Monocytes # (Auto) 1.1x10^3/uL (0.0-1.1) Eosinophils # (Auto) 0.0x10^3/uL (0.0-0.7) Basophils # (Auto) 0.0x10^3/uL (0.0-0.2) Heparin Anti-Xa Act, Unfractionated 0.59IU/mL (0.30-0.70) Sodium Level 143mmol/L (136-145) Potassium Level 4.1mmol/L (3.5-5.1) Chloride Level 97mmol/L (98-107) Carbon Dioxide Level 41mmol/L (21-32) Anion Gap 5 (6-14) Blood Urea Nitrogen 25mg/dL (7-20) Creatinine 0.6mg/dL (0.6-1.0) Estimated GFR (Cockcroft-Gault) 98.8 Glucose Level 123mg/dL (70-99) Lactic Acid Level 1.2mmol/L (0.4-2.0) Calcium Level 9.2mg/dL (8.5-10.1) Laboratory Tests Test 07/05/16 08:56 07/05/16 09:00 07/05/16 10:33 07/05/16 12:56 O2 Saturation 99% (92-99) 82% (92-99) Arterial Blood pH 7.32 (7.35-7.45) 7.36 (7.35-7.45) Arterial Blood pCO2 at Patient Temp 80mmHg (35-46) 74mmHg (35-46) Arterial Blood pO2 at Patient Temp 331mmHg (65-108) 50mmHg (65-108) Arterial Blood HCO3 40mmol/L (21-28) 41mmol/L (21-28) Arterial Blood Base Excess 11mmol/L (-3-3) 12mmol/L (-3-3) FiO2 100 28 White Blood Count 9.2x10^3/uL (4.0-11.0) Red Blood Count 4.27x10^6/uL (3.50-5.40) Hemoglobin 13.4g/dL (12.0-15.5) Hematocrit 40.5% (36.0-47.0) Mean Corpuscular Volume 95fL (79-100) Mean Corpuscular Hemoglobin 31pg (25-35) Mean Corpuscular Hemoglobin Concent 33g/dL (31-37) Red Cell Distribution Width 14.2% (11.5-14.5) Platelet Count 168x10^3/uL (140-400) Neutrophils (%) (Auto) 87% (31-73) Lymphocytes (%) (Auto) 7% (24-48) Monocytes (%) (Auto) 6% (0-9) Eosinophils (%) (Auto) 0% (0-3) Basophils (%) (Auto) 1% (0-3) Neutrophils # (Auto) 7.9x10^3uL (1.8-7.7) Lymphocytes # (Auto) 0.6x10^3/uL (1.0-4.8) Monocytes # (Auto) 0.5x10^3/uL (0.0-1.1) Eosinophils # (Auto) 0.0x10^3/uL (0.0-0.7) Basophils # (Auto) 0.1x10^3/uL (0.0-0.2) Prothrombin Time 12.6SEC (11.7-14.0) Prothromb Time International Ratio 1.0 (0.8-1.1) Sodium Level 143mmol/L (136-145) Potassium Level 4.5mmol/L (3.5-5.1) Chloride Level 97mmol/L (98-107) Carbon Dioxide Level > 45mmol/L (21-32) Anion Gap 1 (6-14) Blood Urea Nitrogen 24mg/dL (7-20) Creatinine 0.7mg/dL (0.6-1.0) Estimated GFR (Cockcroft-Gault) 82.7 Glucose Level 135mg/dL (70-99) Lactic Acid Level 3.4mmol/L (0.4-2.0) Calcium Level 9.7mg/dL (8.5-10.1) Magnesium Level 2.4mg/dL (1.8-2.4) Total Bilirubin 0.5mg/dL (0.2-1.0) Direct Bilirubin 0.1mg/dL (0.0-0.2) Aspartate Amino Transf (AST/SGOT) 50U/L (15-37) Alanine Aminotransferase (ALT/SGPT) 45U/L (14-59) Alkaline Phosphatase 64U/L (46-116) Creatine Kinase 40U/L (26-192) Creatine Kinase MB (Mass) 2.5ng/mL (0.0-3.6) Creatine Kinase MB Relative Index % (0-4) Troponin I Quantitative 0.415ng/mL (0.000-0.055) US-Yci-J-Type Natriuretic Peptide 3948pg/mL (0-124) Total Protein 7.2g/dL (6.4-8.2) Albumin 3.6g/dL (3.4-5.0) Triglycerides Level 74mg/dL (0-150) Cholesterol Level 210mg/dL (0-200) LDL Cholesterol, Calculated 109mg/dL (0-100) VLDL Cholesterol, Calculated 15mg/dL (0-40) HDL Cholesterol 86mg/dL (40-60) Cholesterol/HDL Ratio 2.4 Thyroid Stimulating Hormone (TSH) 7.155uIU/mL (0.358-3.74) Urine Collection Type U cath Urine Color Yellow Urine Clarity Clear Urine pH 6.0 Urine Specific [place] 1.020 Urine Protein Negativemg/dL (NEG-TRACE) Urine Glucose (UA) Negativemg/dL (NEG) Urine Ketones (Stick) Negativemg/dL (NEG) Urine Blood Negative (NEG) Urine Nitrite Negative (NEG) Urine Bilirubin Small (NEG) Urine Urobilinogen Dipstick 1.0mg/dL (0.2 mg/dL) Urine Leukocyte Esterase Negative (NEG) Urine RBC Occ/HPF (0-2) Urine WBC 1-4/HPF (0-4) Urine Squamous Epithelial Cells None/LPF Urine Transitional Epithelial Cells Occ/LPF Urine Bacteria 0/HPF (0-FEW) Urine Hyaline Casts Occasional/HPF Urine Mucus Slight/LPF Test 2/17/17 16:05 07/05/16 22:00 07/06/16 03:15 Troponin I Quantitative 1.470ng/mL (0.000-0.055) 2.447ng/mL (0.000-0.055) White Blood Count 7.8x10^3/uL (4.0-11.0) Red Blood Count 4.10x10^6/uL (3.50-5.40) Hemoglobin 12.8g/dL (12.0-15.5) Hematocrit 39.1% (36.0-47.0) Mean Corpuscular Volume 96fL (79-100) Mean Corpuscular Hemoglobin 31pg (25-35) Mean Corpuscular Hemoglobin Concent 33g/dL (31-37) Red Cell Distribution Width 14.0% (11.5-14.5) Platelet Count 150x10^3/uL (140-400) Neutrophils (%) (Auto) 69% (31-73) Lymphocytes (%) (Auto) 16% (24-48) Monocytes (%) (Auto) 15% (0-9) Eosinophils (%) (Auto) 0% (0-3) Basophils (%) (Auto) 1% (0-3) Neutrophils # (Auto) 5.4x10^3uL (1.8-7.7) Lymphocytes # (Auto) 1.3x10^3/uL (1.0-4.8) Monocytes # (Auto) 1.1x10^3/uL (0.0-1.1) Eosinophils # (Auto) 0.0x10^3/uL (0.0-0.7) Basophils # (Auto) 0.0x10^3/uL (0.0-0.2) Heparin Anti-Xa Act, Unfractionated 0.59IU/mL (0.30-0.70) Sodium Level 143mmol/L (136-145) Potassium Level 4.1mmol/L (3.5-5.1) Chloride Level 97mmol/L (98-107) Carbon Dioxide Level 41mmol/L (21-32) Anion Gap 5 (6-14) Blood Urea Nitrogen 25mg/dL (7-20) Creatinine 0.6mg/dL (0.6-1.0) Estimated GFR (Cockcroft-Gault) 98.8 Glucose Level 123mg/dL (70-99) Lactic Acid Level 1.2mmol/L (0.4-2.0) Calcium Level 9.2mg/dL (8.5-10.1) Medications Active Scripts Medications Dose Route/Sig Days Date Category Crestor (Rosuvastatin Calcium) 10 Mg Tablet 1 Tab PO DAILY 11/10/15 Reported Actonel (Risedronate Sodium) 35 Mg Tablet 1 Tab PO WEEKLY 11/10/15 Reported Celexa (Citalopram Hydrobromide) 10 Mg Tablet 1 Tab PO DAILY 11/10/15 Reported Amlodipine Besylate 5 Mg Tablet 5 Mg PO DAILY 11/10/15 Reported Levothyroxine Sodium 88 Mcg Tablet 88 Mcg PO DAILYAC 11/10/15 Reported Atorvastatin Calcium 20 Mg Tablet 20 Mg PO HS 11/10/15 Reported Furosemide 40 Mg Tablet 1 Tab PO DAILY 11/10/15 Reported Carvedilol 6.25 Mg Tablet 1 Tab PO BID 11/10/15 Reported Clonazepam 1 Mg Tablet 1 Tab PO QHS 11/10/15 Reported Potassium Gluconate 500 Mg Tablet 550 Mg PO DAILY 11/10/15 Reported Meloxicam 15 Mg Tablet 1 Tab PO DAILY 11/10/15 Reported Cozaar (Losartan Potassium) 100 Mg Tablet 100 Mg PO DAILY 11/10/15 Reported Pantoprazole Sodium 40 Mg Tablet.dr 1 Tab PO DAILY 11/10/15 Reported Comments cxr reviewed, Coarse interstitial opacities throughout the bilateral lungs. A portion of this is likely secondary to chronic lung disease but superimposed interstitial edema or infiltrate is possible Impression . IMPRESSION: 1. [id number] respiratory failure. 2. Acute exacerbation of chronic obstructive pulmonary disease. 3. Chronic heart failure, possible in conjunction with acute systolic heart failure. 4. Elevated troponin level, suspect secondary to increased demand. 5. Hypothyroidism. 6. Acute metabolic encephalopathy, improved. Plan . PLAN: 1. Recommend treating the exacerbation with steroids. 2. No need for antibiotics. 3. Consult Cardiology already performed. 4. Maintain saturations above 88%. Do not increase O2 supplement greater than 3 liters. 5. BiPAP prn during day, cont at night 6. Diurese. discussed w AMADOR Goyal MD Jul 06, 2016 06:59
[2016-07-06 07:02] VITALS: BP 131/68
[2016-07-06] MEDS: IPRATRPIUM/ALBUTEROL 0.5/2.5MG 3 ML NEBU. NEB SCH ×4 (07:09→19:11)
[2016-07-06] MEDS: LEVOTHYROXINE 88 MCG TABLET PO SCH (08:15)
[2016-07-06] MEDS: FUROSEMIDE 40 MG TABLET PO SCH (08:15)
[2016-07-06] MEDS: PANTOPRAZOLE 40 MG TABLET. PO SCH (08:15)
[2016-07-06] MEDS: AMLODIPINE BESYLATE 5 MG TABLET PO SCH (08:16)
[2016-07-06] MEDS: CARVEDILOL 6.25 MG TABLET PO SCH ×2 (08:16→17:28)
[2016-07-06] MEDS: CITALOPRAM 10 MG TABLET. PO SCH (08:16)
[2016-07-06] MEDS: PREDNISONE 20 MG TABLET PO SCH (08:17)
[2016-07-06] MEDS: ACETAMINOPHEN 325 MG TABLET. PO PRN (08:17)
[2016-07-06] MEDS: TRAMADOL 50 MG TABLET. PO PRN (08:20)
[2016-07-06] MEDS: LOSARTAN POTASSIUM 50 MG TABLET. PO SCH (09:00)
[2016-07-06] MEDS ORDERED: POTASSIUM GLUCONATE 550 MG PO SCH (09:00)
[2016-07-06] MEDS: ANTI-COAG MONITOR BY PHARMACY. MC PRN (09:11)
[2016-07-06 10:04] LABS: OBC FLU VALID
[2016-07-06 10:16] VITALS: BP 117/58
--- NOTE | 2016-07-06 13:06 | PDOC ---
PROGRESS NOTES Subjective Subjective Patient seen and examined. Feeling mildly better. Objective Objective Vital Signs Date Time Temp Pulse Resp B/P Pulse Ox O2 Delivery O2 Flow Rate FiO2 07/06/16 11:20 94 Nasal Cannula 2.0 07/06/16 10:16 97.8 77 21 117/58 97.8 Intake and Output 07/06/16 07:00 Intake Total 1156 ml Output Total 100 ml Balance 1056 ml Intake Oral 100 ml IV Total 1056 ml Output Urine Total 100 ml # Voids 4 # Bowel Movements 2 Physical Exam Abdomen: Normal bowel sounds Heart: Regular rate General: mild distress Lungs: Other (decreased breath sounds) Assessment Assessment Problems Medical Problems: (1) COPD (chronic obstructive pulmonary disease) Status: Acute (2) Respiratory failure Status: Acute ASSESSMENT/PLAN 1. Hypoxic encephalopathy with underlying dementia: Improving 2. Acute on chronic respiratory failure with underlying COPD followed by the pulmonary service 3. Acute on chronic systolic CHF: last known EF at 40-45%, superimposed by respiratory failure 4. Elevated troponin: likely type 2, demand mediated as above acute conditions. Initial troponin at 0.4. 5. PAFIB: currently on SR. 6. CAD: unable to decipher any LHC in the past and when, failed follow up in the past for f/u MPI, currently CP free 7. HTN/HLP: controlled BP, lipids not on goal 8. Hypothyroidism: TSH not at therapeutic level at 7.1. Not taking replacement on an empty stomach or skipping dose? 9. Prerenal azotemia 10. Possible noncompliance Recommendations 1. Bipap. Pulmonary following 2. Continue with diuretic therapy 3. EKG SR/LVH unchanged by comparison. 4. Unable to place on OAC/NOAC in the past due to significant anemia, multiple falls with underlying dementia. Continue on ASA fro stroke prevention 5. Was placed on cardizem in the past which she converted to SR but appears to be responding ok with coreg. 6. Continue with secondary prevention. 7. Slow maintenance IVF, till po hydration is optimal 8. Lipid panel, trend troponin 9. With multiple chronic comorbid conditions, will continue medical treatment Comment Review of Relevant I have reviewed the following items jovanna (where applicable) has been applied. Labs Laboratory Tests Test 07/05/16 08:56 07/05/16 09:00 07/05/16 10:33 07/05/16 12:56 O2 Saturation 99% (92-99) 82% (92-99) Arterial Blood pH 7.32 (7.35-7.45) 7.36 (7.35-7.45) Arterial Blood pCO2 at Patient Temp 80mmHg (35-46) 74mmHg (35-46) Arterial Blood pO2 at Patient Temp 331mmHg (65-108) 50mmHg (65-108) Arterial Blood HCO3 40mmol/L (21-28) 41mmol/L (21-28) Arterial Blood Base Excess 11mmol/L (-3-3) 12mmol/L (-3-3) FiO2 100 28 White Blood Count 9.2x10^3/uL (4.0-11.0) Red Blood Count 4.27x10^6/uL (3.50-5.40) Hemoglobin 13.4g/dL (12.0-15.5) Hematocrit 40.5% (36.0-47.0) Mean Corpuscular Volume 95fL (79-100) Mean Corpuscular Hemoglobin 31pg (25-35) Mean Corpuscular Hemoglobin Concent 33g/dL (31-37) Red Cell Distribution Width 14.2% (11.5-14.5) Platelet Count 168x10^3/uL (140-400) Neutrophils (%) (Auto) 87% (31-73) Lymphocytes (%) (Auto) 7% (24-48) Monocytes (%) (Auto) 6% (0-9) Eosinophils (%) (Auto) 0% (0-3) Basophils (%) (Auto) 1% (0-3) Neutrophils # (Auto) 7.9x10^3uL (1.8-7.7) Lymphocytes # (Auto) 0.6x10^3/uL (1.0-4.8) Monocytes # (Auto) 0.5x10^3/uL (0.0-1.1) Eosinophils # (Auto) 0.0x10^3/uL (0.0-0.7) Basophils # (Auto) 0.1x10^3/uL (0.0-0.2) Prothrombin Time 12.6SEC (11.7-14.0) Prothromb Time International Ratio 1.0 (0.8-1.1) Sodium Level 143mmol/L (136-145) Potassium Level 4.5mmol/L (3.5-5.1) Chloride Level 97mmol/L (98-107) Carbon Dioxide Level > 45mmol/L (21-32) Anion Gap 1 (6-14) Blood Urea Nitrogen 24mg/dL (7-20) Creatinine 0.7mg/dL (0.6-1.0) Estimated GFR (Cockcroft-Gault) 82.7 Glucose Level 135mg/dL (70-99) Lactic Acid Level 3.4mmol/L (0.4-2.0) Calcium Level 9.7mg/dL (8.5-10.1) Magnesium Level 2.4mg/dL (1.8-2.4) Total Bilirubin 0.5mg/dL (0.2-1.0) Direct Bilirubin 0.1mg/dL (0.0-0.2) Aspartate Amino Transf (AST/SGOT) 50U/L (15-37) Alanine Aminotransferase (ALT/SGPT) 45U/L (14-59) Alkaline Phosphatase 64U/L (46-116) Creatine Kinase 40U/L (26-192) Creatine Kinase MB (Mass) 2.5ng/mL (0.0-3.6) Creatine Kinase MB Relative Index % (0-4) Troponin I Quantitative 0.415ng/mL (0.000-0.055) OK-Trq-B-Type Natriuretic Peptide 3948pg/mL (0-124) Total Protein 7.2g/dL (6.4-8.2) Albumin 3.6g/dL (3.4-5.0) Triglycerides Level 74mg/dL (0-150) Cholesterol Level 210mg/dL (0-200) LDL Cholesterol, Calculated 109mg/dL (0-100) VLDL Cholesterol, Calculated 15mg/dL (0-40) HDL Cholesterol 86mg/dL (40-60) Cholesterol/HDL Ratio 2.4 Thyroid Stimulating Hormone (TSH) 7.155uIU/mL (0.358-3.74) Urine Collection Type U cath Urine Color Yellow Urine Clarity Clear Urine pH 6.0 Urine Specific [place] 1.020 Urine Protein Negativemg/dL (NEG-TRACE) Urine Glucose (UA) Negativemg/dL (NEG) Urine Ketones (Stick) Negativemg/dL (NEG) Urine Blood Negative (NEG) Urine Nitrite Negative (NEG) Urine Bilirubin Small (NEG) Urine Urobilinogen Dipstick 1.0mg/dL (0.2 mg/dL) Urine Leukocyte Esterase Negative (NEG) Urine RBC Occ/HPF (0-2) Urine WBC 1-4/HPF (0-4) Urine Squamous Epithelial Cells None/LPF Urine Transitional Epithelial Cells Occ/LPF Urine Bacteria 0/HPF (0-FEW) Urine Hyaline Casts Occasional/HPF Urine Mucus Slight/LPF Test 07/05/16 16:05 07/05/16 22:00 07/06/16 03:15 07/06/16 09:00 Troponin I Quantitative 1.470ng/mL (0.000-0.055) 2.447ng/mL (0.000-0.055) White Blood Count 7.8x10^3/uL (4.0-11.0) Red Blood Count 4.10x10^6/uL (3.50-5.40) Hemoglobin 12.8g/dL (12.0-15.5) Hematocrit 39.1% (36.0-47.0) Mean Corpuscular Volume 96fL (79-100) Mean Corpuscular Hemoglobin 31pg (25-35) Mean Corpuscular Hemoglobin Concent 33g/dL (31-37) Red Cell Distribution Width 14.0% (11.5-14.5) Platelet Count 150x10^3/uL (140-400) Neutrophils (%) (Auto) 69% (31-73) Lymphocytes (%) (Auto) 16% (24-48) Monocytes (%) (Auto) 15% (0-9) Eosinophils (%) (Auto) 0% (0-3) Basophils (%) (Auto) 1% (0-3) Neutrophils # (Auto) 5.4x10^3uL (1.8-7.7) Lymphocytes # (Auto) 1.3x10^3/uL (1.0-4.8) Monocytes # (Auto) 1.1x10^3/uL (0.0-1.1) Eosinophils # (Auto) 0.0x10^3/uL (0.0-0.7) Basophils # (Auto) 0.0x10^3/uL (0.0-0.2) Heparin Anti-Xa Act, Unfractionated 0.59IU/mL (0.30-0.70) Sodium Level 143mmol/L (136-145) Potassium Level 4.1mmol/L (3.5-5.1) Chloride Level 97mmol/L (98-107) Carbon Dioxide Level 41mmol/L (21-32) Anion Gap 5 (6-14) Blood Urea Nitrogen 25mg/dL (7-20) Creatinine 0.6mg/dL (0.6-1.0) Estimated GFR (Cockcroft-Gault) 98.8 Glucose Level 123mg/dL (70-99) Lactic Acid Level 1.2mmol/L (0.4-2.0) Calcium Level 9.2mg/dL (8.5-10.1) Influenza Type A Antigen Negative (NEGATIVE) Influenza Type B Antigen Negative (NEGATIVE) Test 07/06/16 11:05 Heparin Anti-Xa Act, Unfractionated 0.63IU/mL (0.30-0.70) Laboratory Tests Test 07/05/16 16:05 07/05/16 22:00 07/06/16 03:15 07/06/16 09:00 Troponin I Quantitative 1.470ng/mL (0.000-0.055) 2.447ng/mL (0.000-0.055) White Blood Count 7.8x10^3/uL (4.0-11.0) Red Blood Count 4.10x10^6/uL (3.50-5.40) Hemoglobin 12.8g/dL (12.0-15.5) Hematocrit 39.1% (36.0-47.0) Mean Corpuscular Volume 96fL (79-100) Mean Corpuscular Hemoglobin 31pg (25-35) Mean Corpuscular Hemoglobin Concent 33g/dL (31-37) Red Cell Distribution Width 14.0% (11.5-14.5) Platelet Count 150x10^3/uL (140-400) Neutrophils (%) (Auto) 69% (31-73) Lymphocytes (%) (Auto) 16% (24-48) Monocytes (%) (Auto) 15% (0-9) Eosinophils (%) (Auto) 0% (0-3) Basophils (%) (Auto) 1% (0-3) Neutrophils # (Auto) 5.4x10^3uL (1.8-7.7) Lymphocytes # (Auto) 1.3x10^3/uL (1.0-4.8) Monocytes # (Auto) 1.1x10^3/uL (0.0-1.1) Eosinophils # (Auto) 0.0x10^3/uL (0.0-0.7) Basophils # (Auto) 0.0x10^3/uL (0.0-0.2) Heparin Anti-Xa Act, Unfractionated 0.59IU/mL (0.30-0.70) Sodium Level 143mmol/L (136-145) Potassium Level 4.1mmol/L (3.5-5.1) Chloride Level 97mmol/L (98-107) Carbon Dioxide Level 41mmol/L (21-32) Anion Gap 5 (6-14) Blood Urea Nitrogen 25mg/dL (7-20) Creatinine 0.6mg/dL (0.6-1.0) Estimated GFR (Cockcroft-Gault) 98.8 Glucose Level 123mg/dL (70-99) Lactic Acid Level 1.2mmol/L (0.4-2.0) Calcium Level 9.2mg/dL (8.5-10.1) Influenza Type A Antigen Negative (NEGATIVE) Influenza Type B Antigen Negative (NEGATIVE) Test 07/06/16 11:05 Heparin Anti-Xa Act, Unfractionated 0.63IU/mL (0.30-0.70) Microbiology 07/05/16 Blood Culture - Preliminary, Resulted NO GROWTH AFTER 1 DAY Medications Current Medications Methylprednisolone Sodium Succinate (Solu-Medrol 125mg Vial) 125 mg 1X ONCE IV Last administered on 07/05/16 09:18; Start 07/05/16 at 09:00; Stop 07/05/16 at 09:02; Status DC Albuterol/ Ipratropium 3 ml 3 ml 1X ONCE NEB Last administered on 07/05/16 10 :40; Start 07/05/16 at 09:15; Stop 07/05/16 at 09:16; Status DC Ceftriaxone Sodium 50 ml @ 100 mls/hr 1X ONCE IV Last administered on 10:48; Start 07/05/16 at 10:15; Stop 07/05/16 at 10:44; Status DC Azithromycin (Zithromax 500mg Ivpb For Omni) 250 ml @ 250 mls/hr 1X ONCE IV Last administered on 07/05/16 20:39; Start 07/05/16 at 10:15; Stop 07/05/16 at 11:14; Status DC Amlodipine Besylate (Norvasc) 5 mg DAILY PO Last administered on 07/06/16 08: 16; Start 07/05/16 at 14:00 Atorvastatin Calcium (Lipitor) 20 mg HS PO ; Start 07/05/16 at 21:00; Stop 07/05 at 21:00; Status DC Carvedilol (Coreg) 6.25 mg BIDWMEALS PO Last administered on 07/06/16 08:16; Start 07/05/16 at 17:00 Citalopram Hydrobromide (Celexa) 10 mg DAILY PO Last administered on 07/06/16 08:16; Start 07/05/16 at 14:00 Clonazepam (Klonopin) 1 mg QHS PO Last administered on 07/05/16 20:39; Start 07/05/16 at 21:00 Furosemide (Lasix) 40 mg DAILY PO Last administered on 07/06/16 08:15; Start 07/05/16 at 14:00 Levothyroxine Sodium (Synthroid) 88 mcg DAILYAC PO Last administered on 08:15; Start 07/06/16 at 07:30 Pantoprazole Sodium (Protonix) 40 mg DAILYAC PO Last administered on 07/06/16 08:15; Start 07/05/16 at 16:30 Losartan Potassium (Cozaar) 100 mg DAILY PO Last administered on 07/05/16 17: 13; Start 07/05/16 at 14:00 Non-Formulary Medication 550 mg DAILY PO ; Start 07/06/16 at 09:00; Stop at 09:00; Status DC Furosemide 20 mg 20 mg 1X ONCE IVP Last administered on 07/05/16 17:22; Start 07/05/16 at 14:15; Stop 07/05/16 at 14:20; Status DC Sodium Chloride (Iv Sodium Chloride 0.9% 1000ml Bag) 1,000 ml @ 60 mls/hr [id number] IV Last administered on 07/05/16 17:39; Start 07/05/16 at 14:15; Stop 07/06/16 at 23:34 Atorvastatin Calcium 40 mg 40 mg QHS PO Last administered on 07/05/16 20:39; Start 07/05/16 at 21:00 Heparin Sodium/ Dextrose 500 ml @ 0 mls/hr CONT PRN IV SEE I/O RECORD Last administered on 07/05/16 19:55; Start 07/05/16 at 18:00 Heparin Sodium (Porcine) 1,150 unit PRN Q6HRS PRN IV FOR UFH LEVEL LESS THAN 0.2; Start 07/05/16 at 18:00 Albuterol Sulfate (Ventolin Neb Soln) 2.5 mg QID NEB ; Start 07/05/16 at 21:00; Stop 07/05/16 at 21:00; Status DC Albuterol Sulfate (Ventolin Neb Soln) 2.5 mg PRN Q2HR PRN NEB [id number]; Start at 18:00 Prednisone (Prednisone) 30 mg DAILY PO Last administered on 07/06/16 08:17; Start 07/06/16 at 09:00 Albuterol/ Ipratropium (Duoneb) 3 ml RTQID NEB Last administered on 07/06/16 11:20; Start 07/05/16 at 20:00 Haloperidol Lactate (Haldol) 1 mg PRN Q1HR PRN IVP MODERATE AGITATION; Start at 23:45 Haloperidol Lactate (Haldol) 2 mg PRN Q1HR PRN IVP SEVERE AGITATION Last administered on 07/05/16 23:42; Start 07/05/16 at 23:45 Ondansetron HCl (Zofran) 4 mg PRN Q6HRS PRN IV NAUSEA/VOMITING Last administered on 07/06/16 03:49; Start 07/06/16 at 03:45 Info (Anti-Coagulation Monitoring By Pharmacy) 1 each PRN DAILY PRN MC SEE COMMENTS Last administered on 07/06/16 09:11; Start 07/06/16 at 07:30 Acetaminophen (Tylenol) 650 mg PRN Q6HRS PRN PO MILD PAIN / TEMP Last administered on 07/06/16 08:17; Start 07/06/16 at 08:15 Tramadol HCl (Ultram) 25 mg PRN Q6HRS PRN PO MODERATE - SEVERE PAIN Last administered on 07/06/16 08:20; Start 07/06/16 at 08:15 Active Scripts Active Reported Crestor (Rosuvastatin Calcium) 10 Mg Tablet 1 Tab PO DAILY Actonel (Risedronate Sodium) 35 Mg Tablet 1 Tab PO WEEKLY Celexa (Citalopram Hydrobromide) 10 Mg Tablet 1 Tab PO DAILY Amlodipine Besylate 5 Mg Tablet 5 Mg PO DAILY Levothyroxine Sodium 88 Mcg Tablet 88 Mcg PO DAILYAC Atorvastatin Calcium 20 Mg Tablet 20 Mg PO HS Furosemide 40 Mg Tablet 1 Tab PO DAILY Carvedilol 6.25 Mg Tablet 1 Tab PO BID Clonazepam 1 Mg Tablet 1 Tab PO QHS Potassium Gluconate 500 Mg Tablet 550 Mg PO DAILY Meloxicam 15 Mg Tablet 1 Tab PO DAILY Cozaar (Losartan Potassium) 100 Mg Tablet 100 Mg PO DAILY Pantoprazole Sodium 40 Mg Tablet. 1 Tab PO DAILY Vitals/I & O Vital Sign - Last 24 Hours 07/05/16 07/05/16 07/05/16 07/05/16 13:13 15:03 17:13 17:13 Pulse 83 83 B/P 121/60 121/60 O2 Delivery Nasal Cannula BiPAP/CPAP O2 Flow Rate 2.0 07/05/16 07/05/16 07/05/16 07/05/16 17:38 19:26 19:30 19:35 Temp 98.1 98.1 Pulse 83 78 Resp 23 B/P 121/60 138/69 Pulse Ox 90 71 89 O2 Delivery Nasal Cannula Nasal Cannula BiPAP/CPAP O2 Flow Rate 4.0 4.0 07/05/16 07/05/16 07/05/16 07/05/16 20:00 20:03 23:00 23:53 Temp 98.0 98.0 Pulse 84 Resp 20 B/P 144/77 Pulse Ox 90 90 O2 Delivery Bi-pap BiPAP/CPAP BiPAP/CPAP BiPAP/CPAP 07/06/16 07/06/16 07/06/16 07/06/16 01:30 03:00 03:45 04:30 Temp 98.1 98.1 Pulse 81 Resp 20 B/P 137/89 Pulse Ox 92 94 90 90 O2 Delivery BiPAP/CPAP BiPAP/CPAP BiPAP/CPAP BiPAP/CPAP 07/06/16 07/06/16 07/06/16 07/06/16 07:02 07:09 08:00 08:16 Temp 99.4 99.4 Pulse 77 80 Resp 20 B/P 131/68 131/68 Pulse Ox 96 96 O2 Delivery Nasal Cannula Nasal Cannula Nasal Cannula O2 Flow Rate 3.0 3.0 3.0 07/06/16 07/06/16 07/06/16 07/06/16 08:16 08:20 09:20 10:16 Temp 97.8 97.8 Pulse 80 77 Resp 18 18 21 B/P 131/68 117/58 Pulse Ox 94 O2 Delivery Nasal Cannula Room Air Nasal Cannula O2 Flow Rate 3.0 07/06/16 11:20 Pulse Ox 94 O2 Delivery Nasal Cannula O2 Flow Rate 2.0 Intake and Output 07/05/16 07/05/16 07/06/16 15:00 23:00 07:00 Intake Total 50 ml 100 ml 1006 ml Output Total 100 ml Balance 50 ml 100 ml 906 ml NISHA FLANAGAN MD Jul 06, 2016 13:06
--- NOTE | 2016-07-06 13:54 | PDOC ---
PROGRESS NOTES Chief Complaint Chief Complaint 1. Hypoxic encephalopathy with underlying dementia 2. Acute on chronic respiratory failure with COPD , chf 3. Acute on chronic systolic CHF: last known EF at 40-45%, now 10% 4. Elevated troponin, possible 2/2 demanding ischemia 5. PAFIB: currently on SR. 6. h/o CAD 7. HTN/HLP 8. Hypothyroidism plan: 1. fu with pulm, card 2. on heparin drip, medical treatment for possible new CAD, likely not 3. diuretics lasix 40mg daily for chf 4. bipap prn 5. can dc 1 to 1 ob 6. dvt, gi ppx, on prednisone 30mg daily ptot History of Present Illness History of Present Illness very agitated yesterday, need 1 to 1 ob, today much better on bipap at night ABG NOT ideal yet now ON NC 2l, Home o2 3L high troponin EF 10% Vitals Vitals Vital Signs Date Time Temp Pulse Resp B/P Pulse Ox O2 Delivery O2 Flow Rate FiO2 07/06/16 11:20 94 Nasal Cannula 2.0 07/06/16 10:16 97.8 77 21 117/58 97.8 Physical Exam General: mild distress Heart: Regular rate Lungs: Crackles, Other Abdomen: Normal bowel sounds Extremities: No cyanosis, Other (1+ bilateral LE pitting edema) Skin: No breakdown, No significant lesion Labs LABS Laboratory Tests Test 07/05/16 16:05 07/05/16 22:00 07/06/16 03:15 07/06/16 09:00 Troponin I Quantitative 1.470ng/mL (0.000-0.055) 2.447ng/mL (0.000-0.055) White Blood Count 7.8x10^3/uL (4.0-11.0) Red Blood Count 4.10x10^6/uL (3.50-5.40) Hemoglobin 12.8g/dL (12.0-15.5) Hematocrit 39.1% (36.0-47.0) Mean Corpuscular Volume 96fL (79-100) Mean Corpuscular Hemoglobin 31pg (25-35) Mean Corpuscular Hemoglobin Concent 33g/dL (31-37) Red Cell Distribution Width 14.0% (11.5-14.5) Platelet Count 150x10^3/uL (140-400) Neutrophils (%) (Auto) 69% (31-73) Lymphocytes (%) (Auto) 16% (24-48) Monocytes (%) (Auto) 15% (0-9) Eosinophils (%) (Auto) 0% (0-3) Basophils (%) (Auto) 1% (0-3) Neutrophils # (Auto) 5.4x10^3uL (1.8-7.7) Lymphocytes # (Auto) 1.3x10^3/uL (1.0-4.8) Monocytes # (Auto) 1.1x10^3/uL (0.0-1.1) Eosinophils # (Auto) 0.0x10^3/uL (0.0-0.7) Basophils # (Auto) 0.0x10^3/uL (0.0-0.2) Heparin Anti-Xa Act, Unfractionated 0.59IU/mL (0.30-0.70) Sodium Level 143mmol/L (136-145) Potassium Level 4.1mmol/L (3.5-5.1) Chloride Level 97mmol/L (98-107) Carbon Dioxide Level 41mmol/L (21-32) Anion Gap 5 (6-14) Blood Urea Nitrogen 25mg/dL (7-20) Creatinine 0.6mg/dL (0.6-1.0) Estimated GFR (Cockcroft-Gault) 98.8 Glucose Level 123mg/dL (70-99) Lactic Acid Level 1.2mmol/L (0.4-2.0) Calcium Level 9.2mg/dL (8.5-10.1) Influenza Type A Antigen Negative (NEGATIVE) Influenza Type B Antigen Negative (NEGATIVE) Test 07/06/16 11:05 Heparin Anti-Xa Act, Unfractionated 0.63IU/mL (0.30-0.70) Review of Systems Review of Systems no fever, chills chest pain Assessment and Plan Assessmemt and Plan Problems Medical Problems: (1) COPD (chronic obstructive pulmonary disease) Status: Acute (2) Respiratory failure Status: Acute Problems: Comment Review of Relevant I have reviewed the following items jovanna (where applicable) has been applied. Labs Laboratory Tests Test 07/05/16 08:56 07/05/16 09:00 07/05/16 10:33 07/05/16 12:56 O2 Saturation 99% (92-99) 82% (92-99) Arterial Blood pH 7.32 (7.35-7.45) 7.36 (7.35-7.45) Arterial Blood pCO2 at Patient Temp 80mmHg (35-46) 74mmHg (35-46) Arterial Blood pO2 at Patient Temp 331mmHg (65-108) 50mmHg (65-108) Arterial Blood HCO3 40mmol/L (21-28) 41mmol/L (21-28) Arterial Blood Base Excess 11mmol/L (-3-3) 12mmol/L (-3-3) FiO2 100 28 White Blood Count 9.2x10^3/uL (4.0-11.0) Red Blood Count 4.27x10^6/uL (3.50-5.40) Hemoglobin 13.4g/dL (12.0-15.5) Hematocrit 40.5% (36.0-47.0) Mean Corpuscular Volume 95fL (79-100) Mean Corpuscular Hemoglobin 31pg (25-35) Mean Corpuscular Hemoglobin Concent 33g/dL (31-37) Red Cell Distribution Width 14.2% (11.5-14.5) Platelet Count 168x10^3/uL (140-400) Neutrophils (%) (Auto) 87% (31-73) Lymphocytes (%) (Auto) 7% (24-48) Monocytes (%) (Auto) 6% (0-9) Eosinophils (%) (Auto) 0% (0-3) Basophils (%) (Auto) 1% (0-3) Neutrophils # (Auto) 7.9x10^3uL (1.8-7.7) Lymphocytes # (Auto) 0.6x10^3/uL (1.0-4.8) Monocytes # (Auto) 0.5x10^3/uL (0.0-1.1) Eosinophils # (Auto) 0.0x10^3/uL (0.0-0.7) Basophils # (Auto) 0.1x10^3/uL (0.0-0.2) Prothrombin Time 12.6SEC (11.7-14.0) Prothromb Time International Ratio 1.0 (0.8-1.1) Sodium Level 143mmol/L (136-145) Potassium Level 4.5mmol/L (3.5-5.1) Chloride Level 97mmol/L (98-107) Carbon Dioxide Level > 45mmol/L (21-32) Anion Gap 1 (6-14) Blood Urea Nitrogen 24mg/dL (7-20) Creatinine 0.7mg/dL (0.6-1.0) Estimated GFR (Cockcroft-Gault) 82.7 Glucose Level 135mg/dL (70-99) Lactic Acid Level 3.4mmol/L (0.4-2.0) Calcium Level 9.7mg/dL (8.5-10.1) Magnesium Level 2.4mg/dL (1.8-2.4) Total Bilirubin 0.5mg/dL (0.2-1.0) Direct Bilirubin 0.1mg/dL (0.0-0.2) Aspartate Amino Transf (AST/SGOT) 50U/L (15-37) Alanine Aminotransferase (ALT/SGPT) 45U/L (14-59) Alkaline Phosphatase 64U/L (46-116) Creatine Kinase 40U/L (26-192) Creatine Kinase MB (Mass) 2.5ng/mL (0.0-3.6) Creatine Kinase MB Relative Index % (0-4) Troponin I Quantitative 0.415ng/mL (0.000-0.055) GI-Qzv-D-Type Natriuretic Peptide 3948pg/mL (0-124) Total Protein 7.2g/dL (6.4-8.2) Albumin 3.6g/dL (3.4-5.0) Triglycerides Level 74mg/dL (0-150) Cholesterol Level 210mg/dL (0-200) LDL Cholesterol, Calculated 109mg/dL (0-100) VLDL Cholesterol, Calculated 15mg/dL (0-40) HDL Cholesterol 86mg/dL (40-60) Cholesterol/HDL Ratio 2.4 Thyroid Stimulating Hormone (TSH) 7.155uIU/mL (0.358-3.74) Urine Collection Type U cath Urine Color Yellow Urine Clarity Clear Urine pH 6.0 Urine Specific [place] 1.020 Urine Protein Negativemg/dL (NEG-TRACE) Urine Glucose (UA) Negativemg/dL (NEG) Urine Ketones (Stick) Negativemg/dL (NEG) Urine Blood Negative (NEG) Urine Nitrite Negative (NEG) Urine Bilirubin Small (NEG) Urine Urobilinogen Dipstick 1.0mg/dL (0.2 mg/dL) Urine Leukocyte Esterase Negative (NEG) Urine RBC Occ/HPF (0-2) Urine WBC 1-4/HPF (0-4) Urine Squamous Epithelial Cells None/LPF Urine Transitional Epithelial Cells Occ/LPF Urine Bacteria 0/HPF (0-FEW) Urine Hyaline Casts Occasional/HPF Urine Mucus Slight/LPF Test 07/05/16 16:05 07/05/16 22:00 07/06/16 03:15 07/06/16 09:00 Troponin I Quantitative 1.470ng/mL (0.000-0.055) 2.447ng/mL (0.000-0.055) White Blood Count 7.8x10^3/uL (4.0-11.0) Red Blood Count 4.10x10^6/uL (3.50-5.40) Hemoglobin 12.8g/dL (12.0-15.5) Hematocrit 39.1% (36.0-47.0) Mean Corpuscular Volume 96fL (79-100) Mean Corpuscular Hemoglobin 31pg (25-35) Mean Corpuscular Hemoglobin Concent 33g/dL (31-37) Red Cell Distribution Width 14.0% (11.5-14.5) Platelet Count 150x10^3/uL (140-400) Neutrophils (%) (Auto) 69% (31-73) Lymphocytes (%) (Auto) 16% (24-48) Monocytes (%) (Auto) 15% (0-9) Eosinophils (%) (Auto) 0% (0-3) Basophils (%) (Auto) 1% (0-3) Neutrophils # (Auto) 5.4x10^3uL (1.8-7.7) Lymphocytes # (Auto) 1.3x10^3/uL (1.0-4.8) Monocytes # (Auto) 1.1x10^3/uL (0.0-1.1) Eosinophils # (Auto) 0.0x10^3/uL (0.0-0.7) Basophils # (Auto) 0.0x10^3/uL (0.0-0.2) Heparin Anti-Xa Act, Unfractionated 0.59IU/mL (0.30-0.70) Sodium Level 143mmol/L (136-145) Potassium Level 4.1mmol/L (3.5-5.1) Chloride Level 97mmol/L (98-107) Carbon Dioxide Level 41mmol/L (21-32) Anion Gap 5 (6-14) Blood Urea Nitrogen 25mg/dL (7-20) Creatinine 0.6mg/dL (0.6-1.0) Estimated GFR (Cockcroft-Gault) 98.8 Glucose Level 123mg/dL (70-99) Lactic Acid Level 1.2mmol/L (0.4-2.0) Calcium Level 9.2mg/dL (8.5-10.1) Influenza Type A Antigen Negative (NEGATIVE) Influenza Type B Antigen Negative (NEGATIVE) Test 07/06/16 11:05 Heparin Anti-Xa Act, Unfractionated 0.63IU/mL (0.30-0.70) Laboratory Tests Test 07/05/16 16:05 07/05/16 22:00 07/06/16 03:15 07/06/16 09:00 Troponin I Quantitative 1.470ng/mL (0.000-0.055) 2.447ng/mL (0.000-0.055) White Blood Count 7.8x10^3/uL (4.0-11.0) Red Blood Count 4.10x10^6/uL (3.50-5.40) Hemoglobin 12.8g/dL (12.0-15.5) Hematocrit 39.1% (36.0-47.0) Mean Corpuscular Volume 96fL (79-100) Mean Corpuscular Hemoglobin 31pg (25-35) Mean Corpuscular Hemoglobin Concent 33g/dL (31-37) Red Cell Distribution Width 14.0% (11.5-14.5) Platelet Count 150x10^3/uL (140-400) Neutrophils (%) (Auto) 69% (31-73) Lymphocytes (%) (Auto) 16% (24-48) Monocytes (%) (Auto) 15% (0-9) Eosinophils (%) (Auto) 0% (0-3) Basophils (%) (Auto) 1% (0-3) Neutrophils # (Auto) 5.4x10^3uL (1.8-7.7) Lymphocytes # (Auto) 1.3x10^3/uL (1.0-4.8) Monocytes # (Auto) 1.1x10^3/uL (0.0-1.1) Eosinophils # (Auto) 0.0x10^3/uL (0.0-0.7) Basophils # (Auto) 0.0x10^3/uL (0.0-0.2) Heparin Anti-Xa Act, Unfractionated 0.59IU/mL (0.30-0.70) Sodium Level 143mmol/L (136-145) Potassium Level 4.1mmol/L (3.5-5.1) Chloride Level 97mmol/L (98-107) Carbon Dioxide Level 41mmol/L (21-32) Anion Gap 5 (6-14) Blood Urea Nitrogen 25mg/dL (7-20) Creatinine 0.6mg/dL (0.6-1.0) Estimated GFR (Cockcroft-Gault) 98.8 Glucose Level 123mg/dL (70-99) Lactic Acid Level 1.2mmol/L (0.4-2.0) Calcium Level 9.2mg/dL (8.5-10.1) Influenza Type A Antigen Negative (NEGATIVE) Influenza Type B Antigen Negative (NEGATIVE) Test 07/06/16 11:05 Heparin Anti-Xa Act, Unfractionated 0.63IU/mL (0.30-0.70) Microbiology 07/05/16 Blood Culture - Preliminary, Resulted NO GROWTH AFTER 1 DAY Medications Current Medications Methylprednisolone Sodium Succinate (Solu-Medrol 125mg Vial) 125 mg 1X ONCE IV Last administered on 07/05/16 09:18; Start 07/05/16 at 09:00; Stop 07/05/16 at 09:02; Status DC Albuterol/ Ipratropium 3 ml 3 ml 1X ONCE NEB Last administered on 07/05/16 10 :40; Start 07/05/16 at 09:15; Stop 07/05/16 at 09:16; Status DC Ceftriaxone Sodium 50 ml @ 100 mls/hr 1X ONCE IV Last administered on 10:48; Start 07/05/16 at 10:15; Stop 07/05/16 at 10:44; Status DC Azithromycin (Zithromax 500mg Ivpb For Omni) 250 ml @ 250 mls/hr 1X ONCE IV Last administered on 07/05/16 20:39; Start 07/05/16 at 10:15; Stop 07/05/16 at 11:14; Status DC Amlodipine Besylate (Norvasc) 5 mg DAILY PO Last administered on 07/06/16 08: 16; Start 07/05/16 at 14:00 Atorvastatin Calcium (Lipitor) 20 mg HS PO ; Start 07/05/16 at 21:00; Stop 07/05 at 21:00; Status DC Carvedilol (Coreg) 6.25 mg BIDWMEALS PO Last administered on 07/06/16 08:16; Start 07/05/16 at 17:00 Citalopram Hydrobromide (Celexa) 10 mg DAILY PO Last administered on 07/06/16 08:16; Start 07/05/16 at 14:00 Clonazepam (Klonopin) 1 mg QHS PO Last administered on 07/05/16 20:39; Start 07/05/16 at 21:00 Furosemide (Lasix) 40 mg DAILY PO Last administered on 07/06/16 08:15; Start 07/05/16 at 14:00 Levothyroxine Sodium (Synthroid) 88 mcg DAILYAC PO Last administered on 08:15; Start 07/06/16 at 07:30 Pantoprazole Sodium (Protonix) 40 mg DAILYAC PO Last administered on 07/06/16 08:15; Start 07/05/16 at 16:30 Losartan Potassium (Cozaar) 100 mg DAILY PO Last administered on 07/05/16 17: 13; Start 07/05/16 at 14:00 Non-Formulary Medication 550 mg DAILY PO ; Start 07/06/16 at 09:00; Stop at 09:00; Status DC Furosemide 20 mg 20 mg 1X ONCE IVP Last administered on 07/05/16 17:22; Start 07/05/16 at 14:15; Stop 07/05/16 at 14:20; Status DC Sodium Chloride (Iv Sodium Chloride 0.9% 1000ml Bag) 1,000 ml @ 60 mls/hr [id number] IV Last administered on 07/05/16 17:39; Start 07/05/16 at 14:15; Stop 07/06/16 at 23:34 Atorvastatin Calcium 40 mg 40 mg QHS PO Last administered on 07/05/16 20:39; Start 07/05/16 at 21:00 Heparin Sodium/ Dextrose 500 ml @ 0 mls/hr CONT PRN IV SEE I/O RECORD Last administered on 07/05/16 19:55; Start 07/05/16 at 18:00 Heparin Sodium (Porcine) 1,150 unit PRN Q6HRS PRN IV FOR UFH LEVEL LESS THAN 0.2; Start 07/05/16 at 18:00 Albuterol Sulfate (Ventolin Neb Soln) 2.5 mg QID NEB ; Start 07/05/16 at 21:00; Stop 07/05/16 at 21:00; Status DC Albuterol Sulfate (Ventolin Neb Soln) 2.5 mg PRN Q2HR PRN NEB DYSPNEA; Start at 18:00 Prednisone (Prednisone) 30 mg DAILY PO Last administered on 07/06/16 08:17; Start 07/06/16 at 09:00 Albuterol/ Ipratropium (Duoneb) 3 ml RTQID NEB Last administered on 07/06/16 11:20; Start 07/05/16 at 20:00 Haloperidol Lactate (Haldol) 1 mg PRN Q1HR PRN IVP MODERATE AGITATION; Start at 23:45 Haloperidol Lactate (Haldol) 2 mg PRN Q1HR PRN IVP SEVERE AGITATION Last administered on 07/05/16 23:42; Start 07/05/16 at 23:45 Ondansetron HCl (Zofran) 4 mg PRN Q6HRS PRN IV NAUSEA/VOMITING Last administered on 07/06/16 03:49; Start 07/06/16 at 03:45 Info (Anti-Coagulation Monitoring By Pharmacy) 1 each PRN DAILY PRN MC SEE COMMENTS Last administered on 07/06/16 09:11; Start 07/06/16 at 07:30 Acetaminophen (Tylenol) 650 mg PRN Q6HRS PRN PO MILD PAIN / TEMP Last administered on 07/06/16 08:17; Start 07/06/16 at 08:15 Tramadol HCl (Ultram) 25 mg PRN Q6HRS PRN PO MODERATE - SEVERE PAIN Last administered on 07/06/16 08:20; Start 07/06/16 at 08:15 Active Scripts Active Reported Crestor (Rosuvastatin Calcium) 10 Mg Tablet 1 Tab PO DAILY Actonel (Risedronate Sodium) 35 Mg Tablet 1 Tab PO WEEKLY Celexa (Citalopram Hydrobromide) 10 Mg Tablet 1 Tab PO DAILY Amlodipine Besylate 5 Mg Tablet 5 Mg PO DAILY Levothyroxine Sodium 88 Mcg Tablet 88 Mcg PO DAILYAC Atorvastatin Calcium 20 Mg Tablet 20 Mg PO HS Furosemide 40 Mg Tablet 1 Tab PO DAILY Carvedilol 6.25 Mg Tablet 1 Tab PO BID Clonazepam 1 Mg Tablet 1 Tab PO QHS Potassium Gluconate 500 Mg Tablet 550 Mg PO DAILY Meloxicam 15 Mg Tablet 1 Tab PO DAILY Cozaar (Losartan Potassium) 100 Mg Tablet 100 Mg PO DAILY Pantoprazole Sodium 40 Mg Tablet. 1 Tab PO DAILY Vitals/I & O Vital Sign - Last 24 Hours 07/05/16 07/05/16 07/05/16 07/05/16 15:03 17:13 17:13 17:38 Pulse 83 83 83 B/P 121/60 121/60 121/60 O2 Delivery BiPAP/CPAP 07/05/16 07/05/16 07/05/16 07/05/16 19:26 19:30 19:35 20:00 Temp 98.1 98.1 Pulse 78 Resp 23 B/P 138/69 Pulse Ox 90 71 89 O2 Delivery Nasal Cannula Nasal Cannula BiPAP/CPAP Bi-pap O2 Flow Rate 4.0 4.0 07/05/16 07/05/16 07/05/16 07/06/16 20:03 23:00 23:53 01:30 Temp 98.0 98.0 Pulse 84 Resp 20 B/P 144/77 Pulse Ox 90 90 92 O2 Delivery BiPAP/CPAP BiPAP/CPAP BiPAP/CPAP BiPAP/CPAP 07/06/16 07/06/16 07/06/16 07/06/16 03:00 03:45 04:30 07:02 Temp 98.1 99.4 98.1 99.4 Pulse 81 77 Resp 20 20 B/P 137/89 131/68 Pulse Ox 94 90 90 96 O2 Delivery BiPAP/CPAP BiPAP/CPAP BiPAP/CPAP Nasal Cannula O2 Flow Rate 3.0 07/06/16 07/06/16 07/06/16 07/06/16 07:09 08:00 08:16 08:16 Pulse 80 80 B/P 131/68 131/68 Pulse Ox 96 O2 Delivery Nasal Cannula Nasal Cannula O2 Flow Rate 3.0 3.0 07/06/16 07/06/16 07/06/16 07/06/16 08:20 09:20 10:16 11:20 Temp 97.8 97.8 Pulse 77 Resp 18 18 21 B/P 117/58 Pulse Ox 94 94 O2 Delivery Nasal Cannula Room Air Nasal Cannula Nasal Cannula O2 Flow Rate 3.0 2.0 Intake and Output 07/05/16 07/05/16 07/06/16 15:00 23:00 07:00 Intake Total 50 ml 100 ml 1006 ml Output Total 100 ml Balance 50 ml 100 ml 906 ml TIKA HARMON MD Jul 06, 2016 13:53
[2016-07-06 14:18] VITALS: BP 114/58
[2016-07-06] MEDS: IV NORMAL SALINE 1000ML BAG 1,000 ML IV SCH (15:31)
[2016-07-06] MEDS: HEPARIN 25,000UTS/500ML PREMIX 500 ML IV PRN (17:41)
[2016-07-06 19:20] VITALS: BP 116/56
[2016-07-06] MEDS: ATORVASTATIN CALCIUM 40 MG TABLET. PO SCH (20:39)
[2016-07-06] MEDS: CLONAZEPAM 1 MG TABLET PO SCH (20:39)
[2016-07-06 23:34] VITALS: BP 110/60
[2016-07-07] VITALS (8 sets, daily range): BP systolic 117–158; BP diastolic 59–69
[2016-07-07] MEDS ORDERED: DIGOXIN 500 MCG/2 ML AMPUL. IV ONE ×2 (04:45→08:30)
[2016-07-07 06:47] LABS: BASO % 0 % (0-3); EOS % 0 % (0-3); HEMATOCRIT 34.7 % (36.0-47.0); HEMOGLOBIN 11.6 g/dL (12.0-15.5); LYMPH # 1.2 x10^3/uL (1.0-4.8); LYMPH % 20 % (24-48); MEAN CORPUSCULAR HEMOGLOBIN 32 pg (25-35); MEAN CORPUSCULAR HGB CONC 34 g/dL (31-37); MEAN CORPUSCULAR VOLUME 94 fL (79-100); MONO % 11 % (0-9); NEUT % 69 % (31-73); PLATELET COUNT 121 x10^3/uL (140-400); RED BLOOD COUNT 3.69 x10^6/uL (3.50-5.40); RED CELL DISTRIBUTION WIDTH 14.4 % (11.5-14.5); WHITE BLOOD COUNT 6.1 x10^3/uL (4.0-11.0)
[2016-07-07 07:17] LABS: CALCIUM 8.3 mg/dL (8.5-10.1); CREATININE 0.5 mg/dL (0.6-1.0); POTASSIUM 3.5 mmol/L (3.5-5.1)
--- NOTE | 2016-07-07 07:30 | PDOC ---
PULMONARY PROGRESS NOTES Subjective on bipap, more alert, sob, cough, better, pain on face, bipap mask! Vitals Vital Signs Date Time Temp Pulse Resp B/P Pulse Ox O2 Delivery O2 Flow Rate FiO2 07/07/16 04:38 132 134/69 07/07/16 04:20 93 BiPAP/CPAP 07/07/16 03:00 98.4 22 3.0 98.4 Comments ros as mentioned as above other sys otherwise neg. General: Alert, Oriented X4, No acute distress HEENT: Other (nc at perrl, ) Lungs: Crackles, Other Cardiovascular: S1 Abdomen: Soft, Non-tender Neuro Exam: Alert Extremities: No Edema Skin: Warm Labs Laboratory Tests Test 07/05/16 08:56 07/05/16 09:00 07/05/16 10:33 07/05/16 12:56 O2 Saturation 99% (92-99) 82% (92-99) Arterial Blood pH 7.32 (7.35-7.45) 7.36 (7.35-7.45) Arterial Blood pCO2 at Patient Temp 80mmHg (35-46) 74mmHg (35-46) Arterial Blood pO2 at Patient Temp 331mmHg (65-108) 50mmHg (65-108) Arterial Blood HCO3 40mmol/L (21-28) 41mmol/L (21-28) Arterial Blood Base Excess 11mmol/L (-3-3) 12mmol/L (-3-3) FiO2 100 28 White Blood Count 9.2x10^3/uL (4.0-11.0) Red Blood Count 4.27x10^6/uL (3.50-5.40) Hemoglobin 13.4g/dL (12.0-15.5) Hematocrit 40.5% (36.0-47.0) Mean Corpuscular Volume 95fL (79-100) Mean Corpuscular Hemoglobin 31pg (25-35) Mean Corpuscular Hemoglobin Concent 33g/dL (31-37) Red Cell Distribution Width 14.2% (11.5-14.5) Platelet Count 168x10^3/uL (140-400) Neutrophils (%) (Auto) 87% (31-73) Lymphocytes (%) (Auto) 7% (24-48) Monocytes (%) (Auto) 6% (0-9) Eosinophils (%) (Auto) 0% (0-3) Basophils (%) (Auto) 1% (0-3) Neutrophils # (Auto) 7.9x10^3uL (1.8-7.7) Lymphocytes # (Auto) 0.6x10^3/uL (1.0-4.8) Monocytes # (Auto) 0.5x10^3/uL (0.0-1.1) Eosinophils # (Auto) 0.0x10^3/uL (0.0-0.7) Basophils # (Auto) 0.1x10^3/uL (0.0-0.2) Prothrombin Time 12.6SEC (11.7-14.0) Prothromb Time International Ratio 1.0 (0.8-1.1) Sodium Level 143mmol/L (136-145) Potassium Level 4.5mmol/L (3.5-5.1) Chloride Level 97mmol/L (98-107) Carbon Dioxide Level > 45mmol/L (21-32) Anion Gap 1 (6-14) Blood Urea Nitrogen 24mg/dL (7-20) Creatinine 0.7mg/dL (0.6-1.0) Estimated GFR (Cockcroft-Gault) 82.7 Glucose Level 135mg/dL (70-99) Lactic Acid Level 3.4mmol/L (0.4-2.0) Calcium Level 9.7mg/dL (8.5-10.1) Magnesium Level 2.4mg/dL (1.8-2.4) Total Bilirubin 0.5mg/dL (0.2-1.0) Direct Bilirubin 0.1mg/dL (0.0-0.2) Aspartate Amino Transf (AST/SGOT) 50U/L (15-37) Alanine Aminotransferase (ALT/SGPT) 45U/L (14-59) Alkaline Phosphatase 64U/L (46-116) Creatine Kinase 40U/L (26-192) Creatine Kinase MB (Mass) 2.5ng/mL (0.0-3.6) Creatine Kinase MB Relative Index % (0-4) Troponin I Quantitative 0.415ng/mL (0.000-0.055) KX-[id number]-Type Natriuretic Peptide 3948pg/mL (0-124) Total Protein 7.2g/dL (6.4-8.2) Albumin 3.6g/dL (3.4-5.0) Triglycerides Level 74mg/dL (0-150) Cholesterol Level 210mg/dL (0-200) LDL Cholesterol, Calculated 109mg/dL (0-100) VLDL Cholesterol, Calculated 15mg/dL (0-40) HDL Cholesterol 86mg/dL (40-60) Cholesterol/HDL Ratio 2.4 Thyroid Stimulating Hormone (TSH) 7.155uIU/mL (0.358-3.74) Urine Collection Type U cath Urine Color Yellow Urine Clarity Clear Urine pH 6.0 Urine Specific [place] 1.020 Urine Protein Negativemg/dL (NEG-TRACE) Urine Glucose (UA) Negativemg/dL (NEG) Urine Ketones (Stick) Negativemg/dL (NEG) Urine Blood Negative (NEG) Urine Nitrite Negative (NEG) Urine Bilirubin Small (NEG) Urine Urobilinogen Dipstick 1.0mg/dL (0.2 mg/dL) Urine Leukocyte Esterase Negative (NEG) Urine RBC Occ/HPF (0-2) Urine WBC 1-4/HPF (0-4) Urine Squamous Epithelial Cells None/LPF Urine Transitional Epithelial Cells Occ/LPF Urine Bacteria 0/HPF (0-FEW) Urine Hyaline Casts Occasional/HPF Urine Mucus Slight/LPF Test 07/05/16 16:05 07/05/16 22:00 07/06/16 03:15 07/06/16 09:00 Troponin I Quantitative 1.470ng/mL (0.000-0.055) 2.447ng/mL (0.000-0.055) White Blood Count 7.8x10^3/uL (4.0-11.0) Red Blood Count 4.10x10^6/uL (3.50-5.40) Hemoglobin 12.8g/dL (12.0-15.5) Hematocrit 39.1% (36.0-47.0) Mean Corpuscular Volume 96fL (79-100) Mean Corpuscular Hemoglobin 31pg (25-35) Mean Corpuscular Hemoglobin Concent 33g/dL (31-37) Red Cell Distribution Width 14.0% (11.5-14.5) Platelet Count 150x10^3/uL (140-400) Neutrophils (%) (Auto) 69% (31-73) Lymphocytes (%) (Auto) 16% (24-48) Monocytes (%) (Auto) 15% (0-9) Eosinophils (%) (Auto) 0% (0-3) Basophils (%) (Auto) 1% (0-3) Neutrophils # (Auto) 5.4x10^3uL (1.8-7.7) Lymphocytes # (Auto) 1.3x10^3/uL (1.0-4.8) Monocytes # (Auto) 1.1x10^3/uL (0.0-1.1) Eosinophils # (Auto) 0.0x10^3/uL (0.0-0.7) Basophils # (Auto) 0.0x10^3/uL (0.0-0.2) Heparin Anti-Xa Act, Unfractionated 0.59IU/mL (0.30-0.70) Sodium Level 143mmol/L (136-145) Potassium Level 4.1mmol/L (3.5-5.1) Chloride Level 97mmol/L (98-107) Carbon Dioxide Level 41mmol/L (21-32) Anion Gap 5 (6-14) Blood Urea Nitrogen 25mg/dL (7-20) Creatinine 0.6mg/dL (0.6-1.0) Estimated GFR (Cockcroft-Gault) 98.8 Glucose Level 123mg/dL (70-99) Lactic Acid Level 1.2mmol/L (0.4-2.0) Calcium Level 9.2mg/dL (8.5-10.1) Influenza Type A Antigen Negative (NEGATIVE) Influenza Type B Antigen Negative (NEGATIVE) Test 07/06/16 11:05 07/06/16 18:40 07/07/16 01:05 07/07/16 06:35 Heparin Anti-Xa Act, Unfractionated 0.63IU/mL (0.30-0.70) 0.70IU/mL (0.30-0.70) 0.42IU/mL (0.30-0.70) 0.30IU/mL (0.30-0.70) White Blood Count 6.1x10^3/uL (4.0-11.0) Red Blood Count 3.69x10^6/uL (3.50-5.40) Hemoglobin 11.6g/dL (12.0-15.5) Hematocrit 34.7% (36.0-47.0) Mean Corpuscular Volume 94fL (79-100) Mean Corpuscular Hemoglobin 32pg (25-35) Mean Corpuscular Hemoglobin Concent 34g/dL (31-37) Red Cell Distribution Width 14.4% (11.5-14.5) Platelet Count 121x10^3/uL (140-400) Neutrophils (%) (Auto) 69% (31-73) Lymphocytes (%) (Auto) 20% (24-48) Monocytes (%) (Auto) 11% (0-9) Eosinophils (%) (Auto) 0% (0-3) Basophils (%) (Auto) 0% (0-3) Neutrophils # (Auto) 4.2x10^3uL (1.8-7.7) Lymphocytes # (Auto) 1.2x10^3/uL (1.0-4.8) Monocytes # (Auto) 0.7x10^3/uL (0.0-1.1) Eosinophils # (Auto) 0.0x10^3/uL (0.0-0.7) Basophils # (Auto) 0.0x10^3/uL (0.0-0.2) Sodium Level 144mmol/L (136-145) Potassium Level 3.5mmol/L (3.5-5.1) Chloride Level 102mmol/L (98-107) Carbon Dioxide Level 42mmol/L (21-32) Anion Gap 0 (6-14) Blood Urea Nitrogen 19mg/dL (7-20) Creatinine 0.5mg/dL (0.6-1.0) Estimated GFR (Cockcroft-Gault) 122.0 Glucose Level 102mg/dL (70-99) Calcium Level 8.3mg/dL (8.5-10.1) Laboratory Tests Test 07/06/16 09:00 07/06/16 11:05 07/06/16 18:40 07/07/16 01:05 Influenza Type A Antigen Negative (NEGATIVE) Influenza Type B Antigen Negative (NEGATIVE) Heparin Anti-Xa Act, Unfractionated 0.63IU/mL (0.30-0.70) 0.70IU/mL (0.30-0.70) 0.42IU/mL (0.30-0.70) Test 07/07/16 06:35 White Blood Count 6.1x10^3/uL (4.0-11.0) Red Blood Count 3.69x10^6/uL (3.50-5.40) Hemoglobin 11.6g/dL (12.0-15.5) Hematocrit 34.7% (36.0-47.0) Mean Corpuscular Volume 94fL (79-100) Mean Corpuscular Hemoglobin 32pg (25-35) Mean Corpuscular Hemoglobin Concent 34g/dL (31-37) Red Cell Distribution Width 14.4% (11.5-14.5) Platelet Count 121x10^3/uL (140-400) Neutrophils (%) (Auto) 69% (31-73) Lymphocytes (%) (Auto) 20% (24-48) Monocytes (%) (Auto) 11% (0-9) Eosinophils (%) (Auto) 0% (0-3) Basophils (%) (Auto) 0% (0-3) Neutrophils # (Auto) 4.2x10^3uL (1.8-7.7) Lymphocytes # (Auto) 1.2x10^3/uL (1.0-4.8) Monocytes # (Auto) 0.7x10^3/uL (0.0-1.1) Eosinophils # (Auto) 0.0x10^3/uL (0.0-0.7) Basophils # (Auto) 0.0x10^3/uL (0.0-0.2) Heparin Anti-Xa Act, Unfractionated 0.30IU/mL (0.30-0.70) Sodium Level 144mmol/L (136-145) Potassium Level 3.5mmol/L (3.5-5.1) Chloride Level 102mmol/L (98-107) Carbon Dioxide Level 42mmol/L (21-32) Anion Gap 0 (6-14) Blood Urea Nitrogen 19mg/dL (7-20) Creatinine 0.5mg/dL (0.6-1.0) Estimated GFR (Cockcroft-Gault) 122.0 Glucose Level 102mg/dL (70-99) Calcium Level 8.3mg/dL (8.5-10.1) Medications Active Scripts Medications Dose Route/Sig Days Date Category Crestor (Rosuvastatin Calcium) 10 Mg Tablet 1 Tab PO DAILY 11/10/15 Reported Actonel (Risedronate Sodium) 35 Mg Tablet 1 Tab PO WEEKLY 11/10/15 Reported Celexa (Citalopram Hydrobromide) 10 Mg Tablet 1 Tab PO DAILY 11/10/15 Reported Amlodipine Besylate 5 Mg Tablet 5 Mg PO DAILY 11/10/15 Reported Levothyroxine Sodium 88 Mcg Tablet 88 Mcg PO DAILYAC 11/10/15 Reported Atorvastatin Calcium 20 Mg Tablet 20 Mg PO HS 11/10/15 Reported Furosemide 40 Mg Tablet 1 Tab PO DAILY 11/10/15 Reported Carvedilol 6.25 Mg Tablet 1 Tab PO BID 11/10/15 Reported Clonazepam 1 Mg Tablet 1 Tab PO QHS 11/10/15 Reported Potassium Gluconate 500 Mg Tablet 550 Mg PO DAILY 11/10/15 Reported Meloxicam 15 Mg Tablet 1 Tab PO DAILY 11/10/15 Reported Cozaar (Losartan Potassium) 100 Mg Tablet 100 Mg PO DAILY 11/10/15 Reported Pantoprazole Sodium 40 Mg Tablet.dr 1 Tab PO DAILY 11/10/15 Reported Comments cxr reviewed, Coarse interstitial opacities throughout the bilateral lungs. A portion of this is likely secondary to chronic lung disease but superimposed interstitial edema or infiltrate is possible Impression . IMPRESSION: 1. [id number] respiratory failure. 2. Acute exacerbation of chronic obstructive pulmonary disease. 3. Chronic heart failure, possible in conjunction with acute systolic heart failure. 4. Elevated troponin level, suspect secondary to increased demand. 5. Hypothyroidism. 6. Acute metabolic encephalopathy, improved. Plan . PLAN: 1. prednisone w taper 2. No need for antibiotics. 3. keep I<O. lasix, monitor k, cr 4. O2 3 liters. 5. BiPAP prn 6. increase activity 7. on hep gtt per cardiology 8. protonix for stress ulcer prophylaxis discussed w rn, pt AMADOR PUENTES MD Jul 07, 2016 07:30
[2016-07-07] MEDS: IPRATRPIUM/ALBUTEROL 0.5/2.5MG 3 ML NEBU. NEB SCH ×2 (07:42→12:00)
[2016-07-07] MEDS: CARVEDILOL 6.25 MG TABLET PO SCH ×2 (08:15→17:10)
[2016-07-07] MEDS: CITALOPRAM 10 MG TABLET. PO SCH (08:23)
[2016-07-07] MEDS: PREDNISONE 20 MG TABLET PO SCH (08:24)
[2016-07-07] MEDS: FUROSEMIDE 40 MG TABLET PO SCH (08:24)
[2016-07-07] MEDS: ACETAMINOPHEN 325 MG TABLET. PO PRN (08:24)
[2016-07-07] MEDS: PANTOPRAZOLE 40 MG TABLET. PO SCH (08:24)
[2016-07-07] MEDS: LEVOTHYROXINE 88 MCG TABLET PO SCH (08:24)
[2016-07-07] MEDS: AMLODIPINE BESYLATE 5 MG TABLET PO SCH (09:00)
--- NOTE | 2016-07-07 11:44 | PDOC ---
PROGRESS NOTES Subjective Subjective The patient is mildly improved today. Objective Objective Vital Signs Date Time Temp Pulse Resp B/P Pulse Ox O2 Delivery O2 Flow Rate FiO2 07/07/16 10:48 98.7 81 21 117/59 92 Room Air 98.7 07/07/16 10:30 3.0 Intake and Output 07/07/16 07:00 Intake Total 1900 ml Output Total 1600 ml Balance 300 ml Intake Oral 960 ml IV Total 940 ml Output Urine Total 1600 ml # Voids 1 # Bowel Movements 2 Physical Exam Abdomen: Normal bowel sounds Heart: Regular rate General: mild distress Lungs: Other (mildly decreased breath sounds) Assessment Assessment Problems Medical Problems: (1) COPD (chronic obstructive pulmonary disease) Status: Acute (2) Respiratory failure Status: Acute ASSESSMENT/PLAN 1. Hypoxic encephalopathy with underlying dementia: Improving 2. Acute on chronic respiratory failure with underlying COPD followed by the pulmonary service 3. Acute on chronic systolic CHF: last known EF at 40-45%, superimposed by respiratory failure 4. Elevated troponin: likely type 2, demand mediated as above acute conditions. Initial troponin at 0.4. 5. PAFIB: currently on SR. intermittent episodes of atrial fibrillation treated with digoxin. We'll continue baseline medicines. 6. CAD: unable to decipher any LHC in the past and when, failed follow up in the past for f/u MPI, currently CP free 7. HTN/HLP: controlled BP, lipids not on goal 8. Hypothyroidism: TSH not at therapeutic level at 7.1. Not taking replacement on an empty stomach or skipping dose? 9. Prerenal azotemia Comment Review of Relevant I have reviewed the following items jovanna (where applicable) has been applied. Labs Laboratory Tests Test 07/05/16 12:56 07/05/16 16:05 07/05/16 22:00 07/06/16 03:15 O2 Saturation 82% (92-99) Arterial Blood pH 7.36 (7.35-7.45) Arterial Blood pCO2 at Patient Temp 74mmHg (35-46) Arterial Blood pO2 at Patient Temp 50mmHg (65-108) Arterial Blood HCO3 41mmol/L (21-28) Arterial Blood Base Excess 12mmol/L (-3-3) FiO2 28 Troponin I Quantitative 1.470ng/mL (0.000-0.055) 2.447ng/mL (0.000-0.055) White Blood Count 7.8x10^3/uL (4.0-11.0) Red Blood Count 4.10x10^6/uL (3.50-5.40) Hemoglobin 12.8g/dL (12.0-15.5) Hematocrit 39.1% (36.0-47.0) Mean Corpuscular Volume 96fL (79-100) Mean Corpuscular Hemoglobin 31pg (25-35) Mean Corpuscular Hemoglobin Concent 33g/dL (31-37) Red Cell Distribution Width 14.0% (11.5-14.5) Platelet Count 150x10^3/uL (140-400) Neutrophils (%) (Auto) 69% (31-73) Lymphocytes (%) (Auto) 16% (24-48) Monocytes (%) (Auto) 15% (0-9) Eosinophils (%) (Auto) 0% (0-3) Basophils (%) (Auto) 1% (0-3) Neutrophils # (Auto) 5.4x10^3uL (1.8-7.7) Lymphocytes # (Auto) 1.3x10^3/uL (1.0-4.8) Monocytes # (Auto) 1.1x10^3/uL (0.0-1.1) Eosinophils # (Auto) 0.0x10^3/uL (0.0-0.7) Basophils # (Auto) 0.0x10^3/uL (0.0-0.2) Heparin Anti-Xa Act, Unfractionated 0.59IU/mL (0.30-0.70) Sodium Level 143mmol/L (136-145) Potassium Level 4.1mmol/L (3.5-5.1) Chloride Level 97mmol/L (98-107) Carbon Dioxide Level 41mmol/L (21-32) Anion Gap 5 (6-14) Blood Urea Nitrogen 25mg/dL (7-20) Creatinine 0.6mg/dL (0.6-1.0) Estimated GFR (Cockcroft-Gault) 98.8 Glucose Level 123mg/dL (70-99) Lactic Acid Level 1.2mmol/L (0.4-2.0) Calcium Level 9.2mg/dL (8.5-10.1) Test 07/06/16 09:00 07/06/16 11:05 07/06/16 18:40 07/07/16 01:05 Influenza Type A Antigen Negative (NEGATIVE) Influenza Type B Antigen Negative (NEGATIVE) Heparin Anti-Xa Act, Unfractionated 0.63IU/mL (0.30-0.70) 0.70IU/mL (0.30-0.70) 0.42IU/mL (0.30-0.70) Test 07/07/16 06:35 White Blood Count 6.1x10^3/uL (4.0-11.0) Red Blood Count 3.69x10^6/uL (3.50-5.40) Hemoglobin 11.6g/dL (12.0-15.5) Hematocrit 34.7% (36.0-47.0) Mean Corpuscular Volume 94fL (79-100) Mean Corpuscular Hemoglobin 32pg (25-35) Mean Corpuscular Hemoglobin Concent 34g/dL (31-37) Red Cell Distribution Width 14.4% (11.5-14.5) Platelet Count 121x10^3/uL (140-400) Neutrophils (%) (Auto) 69% (31-73) Lymphocytes (%) (Auto) 20% (24-48) Monocytes (%) (Auto) 11% (0-9) Eosinophils (%) (Auto) 0% (0-3) Basophils (%) (Auto) 0% (0-3) Neutrophils # (Auto) 4.2x10^3uL (1.8-7.7) Lymphocytes # (Auto) 1.2x10^3/uL (1.0-4.8) Monocytes # (Auto) 0.7x10^3/uL (0.0-1.1) Eosinophils # (Auto) 0.0x10^3/uL (0.0-0.7) Basophils # (Auto) 0.0x10^3/uL (0.0-0.2) Heparin Anti-Xa Act, Unfractionated 0.30IU/mL (0.30-0.70) Sodium Level 144mmol/L (136-145) Potassium Level 3.5mmol/L (3.5-5.1) Chloride Level 102mmol/L (98-107) Carbon Dioxide Level 42mmol/L (21-32) Anion Gap 0 (6-14) Blood Urea Nitrogen 19mg/dL (7-20) Creatinine 0.5mg/dL (0.6-1.0) Estimated GFR (Cockcroft-Gault) 122.0 Glucose Level 102mg/dL (70-99) Calcium Level 8.3mg/dL (8.5-10.1) Laboratory Tests Test 07/06/16 18:40 07/07/16 01:05 07/07/16 06:35 Heparin Anti-Xa Act, Unfractionated 0.70IU/mL (0.30-0.70) 0.42IU/mL (0.30-0.70) 0.30IU/mL (0.30-0.70) White Blood Count 6.1x10^3/uL (4.0-11.0) Red Blood Count 3.69x10^6/uL (3.50-5.40) Hemoglobin 11.6g/dL (12.0-15.5) Hematocrit 34.7% (36.0-47.0) Mean Corpuscular Volume 94fL (79-100) Mean Corpuscular Hemoglobin 32pg (25-35) Mean Corpuscular Hemoglobin Concent 34g/dL (31-37) Red Cell Distribution Width 14.4% (11.5-14.5) Platelet Count 121x10^3/uL (140-400) Neutrophils (%) (Auto) 69% (31-73) Lymphocytes (%) (Auto) 20% (24-48) Monocytes (%) (Auto) 11% (0-9) Eosinophils (%) (Auto) 0% (0-3) Basophils (%) (Auto) 0% (0-3) Neutrophils # (Auto) 4.2x10^3uL (1.8-7.7) Lymphocytes # (Auto) 1.2x10^3/uL (1.0-4.8) Monocytes # (Auto) 0.7x10^3/uL (0.0-1.1) Eosinophils # (Auto) 0.0x10^3/uL (0.0-0.7) Basophils # (Auto) 0.0x10^3/uL (0.0-0.2) Sodium Level 144mmol/L (136-145) Potassium Level 3.5mmol/L (3.5-5.1) Chloride Level 102mmol/L (98-107) Carbon Dioxide Level 42mmol/L (21-32) Anion Gap 0 (6-14) Blood Urea Nitrogen 19mg/dL (7-20) Creatinine 0.5mg/dL (0.6-1.0) Estimated GFR (Cockcroft-Gault) 122.0 Glucose Level 102mg/dL (70-99) Calcium Level 8.3mg/dL (8.5-10.1) Microbiology 07/05/16 Blood Culture - Preliminary, Resulted NO GROWTH AFTER 2 DAYS Medications Current Medications Methylprednisolone Sodium Succinate (Solu-Medrol 125mg Vial) 125 mg 1X ONCE IV Last administered on 07/05/16 09:18; Start 07/05/16 at 09:00; Stop 07/05/16 at 09:02; Status DC Albuterol/ Ipratropium 3 ml 3 ml 1X ONCE NEB Last administered on 07/05/16 10 :40; Start 07/05/16 at 09:15; Stop 07/05/16 at 09:16; Status DC Ceftriaxone Sodium 50 ml @ 100 mls/hr 1X ONCE IV Last administered on 10:48; Start 07/05/16 at 10:15; Stop 07/05/16 at 10:44; Status DC Azithromycin (Zithromax 500mg Ivpb For Omni) 250 ml @ 250 mls/hr 1X ONCE IV Last administered on 07/05/16 20:39; Start 07/05/16 at 10:15; Stop 07/05/16 at 11:14; Status DC Amlodipine Besylate (Norvasc) 5 mg DAILY PO Last administered on 07/06/16 08: 16; Start 07/05/16 at 14:00; Stop 07/07/16 at 11:13; Status DC Atorvastatin Calcium (Lipitor) 20 mg HS PO ; Start 07/05/16 at 21:00; Stop 07/05 at 21:00; Status DC Carvedilol (Coreg) 6.25 mg BIDWMEALS PO Last administered on 07/07/16 08:15; Start 07/05/16 at 17:00 Citalopram Hydrobromide (Celexa) 10 mg DAILY PO Last administered on 07/07/16 08:23; Start 07/05/16 at 14:00 Clonazepam (Klonopin) 1 mg QHS PO Last administered on 07/06/16 20:39; Start 07/05/16 at 21:00 Furosemide (Lasix) 40 mg DAILY PO Last administered on 07/07/16 08:24; Start 07/05/16 at 14:00 Levothyroxine Sodium (Synthroid) 88 mcg DAILYAC PO Last administered on 08:24; Start 07/06/16 at 07:30 Pantoprazole Sodium (Protonix) 40 mg DAILYAC PO Last administered on 07/07/16 08:24; Start 07/05/16 at 16:30 Losartan Potassium (Cozaar) 100 mg DAILY PO Last administered on 07/05/16 17: 13; Start 07/05/16 at 14:00 Non-Formulary Medication 550 mg DAILY PO ; Start 07/06/16 at 09:00; Stop at 09:00; Status DC Furosemide 20 mg 20 mg 1X ONCE IVP Last administered on 07/05/16 17:22; Start 07/05/16 at 14:15; Stop 07/05/16 at 14:20; Status DC Sodium Chloride (Iv Sodium Chloride 0.9% 1000ml Bag) 1,000 ml @ 60 mls/hr [id number] IV Last administered on 07/06/16 15:31; Start 07/05/16 at 14:15; Stop 07/06/16 at 23:34; Status DC Atorvastatin Calcium 40 mg 40 mg QHS PO Last administered on 07/06/16 20:39; Start 07/05/16 at 21:00 Heparin Sodium/ Dextrose 500 ml @ 0 mls/hr CONT PRN IV SEE I/O RECORD Last administered on 07/06/16 17:41; Start 07/05/16 at 18:00 Heparin Sodium (Porcine) 1,150 unit PRN Q6HRS PRN IV FOR UFH LEVEL LESS THAN 0.2; Start 07/05/16 at 18:00 Albuterol Sulfate (Ventolin Neb Soln) 2.5 mg QID NEB ; Start 07/05/16 at 21:00; Stop 07/05/16 at 21:00; Status DC Albuterol Sulfate (Ventolin Neb Soln) 2.5 mg PRN Q2HR PRN NEB [id number]; Start at 18:00 Prednisone (Prednisone) 30 mg DAILY PO Last administered on 07/07/16 08:24; Start 07/06/16 at 09:00 Albuterol/ Ipratropium (Duoneb) 3 ml RTQID NEB Last administered on 07/07/16 07:42; Start 07/05/16 at 20:00 Haloperidol Lactate (Haldol) 1 mg PRN Q1HR PRN IVP MODERATE AGITATION; Start at 23:45 Haloperidol Lactate (Haldol) 2 mg PRN Q1HR PRN IVP SEVERE AGITATION Last administered on 07/05/16 23:42; Start 07/05/16 at 23:45 Ondansetron HCl (Zofran) 4 mg PRN Q6HRS PRN IV NAUSEA/VOMITING Last administered on 07/06/16 03:49; Start 07/06/16 at 03:45 Info (Anti-Coagulation Monitoring By Pharmacy) 1 each PRN DAILY PRN MC SEE COMMENTS Last administered on 07/06/16 09:11; Start 07/06/16 at 07:30 Acetaminophen (Tylenol) 650 mg PRN Q6HRS PRN PO MILD PAIN / TEMP Last administered on 07/07/16 08:24; Start 07/06/16 at 08:15 Tramadol HCl (Ultram) 25 mg PRN Q6HRS PRN PO MODERATE - SEVERE PAIN Last administered on 07/06/16 08:20; Start 07/06/16 at 08:15 Digoxin (Lanoxin) 250 mcg 1X ONCE IV Last administered on 07/07/16 04:38; Start 07/07/16 at 04:45; Stop 07/07/16 at 04:46; Status DC Digoxin (Lanoxin) 250 mcg 1X ONCE IV Last administered on 07/07/16 08:23; Start 07/07/16 at 08:30; Stop 07/07/16 at 08:31; Status DC Active Scripts Active Reported Crestor (Rosuvastatin Calcium) 10 Mg Tablet 1 Tab PO DAILY Actonel (Risedronate Sodium) 35 Mg Tablet 1 Tab PO WEEKLY Celexa (Citalopram Hydrobromide) 10 Mg Tablet 1 Tab PO DAILY Amlodipine Besylate 5 Mg Tablet 5 Mg PO DAILY Levothyroxine Sodium 88 Mcg Tablet 88 Mcg PO DAILYAC Atorvastatin Calcium 20 Mg Tablet 20 Mg PO HS Furosemide 40 Mg Tablet 1 Tab PO DAILY Carvedilol 6.25 Mg Tablet 1 Tab PO BID Clonazepam 1 Mg Tablet 1 Tab PO QHS Potassium Gluconate 500 Mg Tablet 550 Mg PO DAILY Meloxicam 15 Mg Tablet 1 Tab PO DAILY Cozaar (Losartan Potassium) 100 Mg Tablet 100 Mg PO DAILY Pantoprazole Sodium 40 Mg Tablet. 1 Tab PO DAILY Vitals/I & O Vital Sign - Last 24 Hours 07/06/16 07/06/16 07/06/16 07/06/16 14:18 15:14 17:28 19:13 Temp 99.6 99.6 Pulse 79 65 Resp 20 B/P 114/58 106/55 Pulse Ox 95 92 O2 Delivery Nasal Cannula Nasal Cannula Nasal Cannula O2 Flow Rate 2.0 2.0 2.0 07/06/16 07/06/16 07/06/16 07/06/16 19:20 20:00 23:02 23:34 Temp 98.9 97.1 98.9 97.1 Pulse 74 66 Resp 24 18 B/P 116/56 110/60 Pulse Ox 96 95 93 O2 Delivery Nasal Cannula Nasal Cannula BiPAP/CPAP BiPAP/CPAP O2 Flow Rate 2.0 3.0 07/07/16 07/07/16 07/07/16 07/07/16 00:46 03:00 03:21 04:20 Temp 98.4 98.4 Pulse 75 Resp 22 B/P 134/69 Pulse Ox 96 94 93 93 O2 Delivery BiPAP/CPAP Nasal Cannula BiPAP/CPAP BiPAP/CPAP O2 Flow Rate 3.0 07/07/16 07/07/16 07/07/16 07/07/16 04:38 07:37 07:43 08:00 Temp 99.2 99.2 Pulse 132 73 Resp 19 B/P 134/69 127/59 Pulse Ox 93 95 O2 Delivery Nasal Cannula Nasal Cannula Nasal Cannula O2 Flow Rate 3.0 3.0 3.0 07/07/16 07/07/16 07/07/16 07/07/16 08:15 08:23 10:30 10:48 Temp 98.1 98.7 98.1 98.7 Pulse 150 131 69 81 Resp 20 21 B/P 127/59 157/59 135/64 117/59 Pulse Ox 97 92 O2 Delivery Nasal Cannula Room Air O2 Flow Rate 3.0 Intake and Output 07/06/16 07/06/16 07/07/16 15:00 23:00 07:00 Intake Total 360 ml 500 ml 1040 ml Output Total 1050 ml 550 ml Balance 360 ml -550 ml 490 ml NISHA FLANAGAN MD Jul 07, 2016 11:44
[2016-07-07] MEDS: LOSARTAN POTASSIUM 50 MG TABLET. PO SCH (11:52)
[2016-07-07] MEDS: ANTI-COAG MONITOR BY PHARMACY. MC PRN (12:08)
--- NOTE | 2016-07-07 13:14 | PDOC ---
PROGRESS NOTES Chief Complaint Chief Complaint 1. Hypoxic encephalopathy with underlying dementia 2. Acute on chronic respiratory failure with COPD , chf 3. Acute on chronic systolic CHF: last known EF at 40-45%, now 10% 4. Elevated troponin, possible 2/2 demanding ischemia 5. PAFIB: currently on SR. 6. h/o CAD 7. HTN/HLP 8. Hypothyroidism 9. diarrhea plan: 1. fu with pulm, card 2. still on heparin drip, medical treatment for possible new CAD, likely not 3. diuretics lasix 40mg daily for chf 4. bipap prn 5. can dc 1 to 1 ob 6. dvt, gi ppx, on prednisone 30mg daily, taper as per pulm. no abx. ptot dc amlodipine since low side BP. History of Present Illness History of Present Illness very agitated on first day, calm since yesterday on bipap at night/prn now ON NC 2l, Home o2 3L high troponin EF 10%, new to her diarrhea 2 times Vitals Vitals Vital Signs Date Time Temp Pulse Resp B/P Pulse Ox O2 Delivery O2 Flow Rate FiO2 07/07/16 11:52 66 137/64 07/07/16 10:48 98.7 21 92 Room Air 98.7 07/07/16 10:30 3.0 Physical Exam General: Alert, mild distress Heart: Regular rate Lungs: Crackles (bl mild crackles), Other Abdomen: Normal bowel sounds Extremities: No cyanosis, Other (1+ bilateral LE pitting edema) Skin: No breakdown, No significant lesion Labs LABS Laboratory Tests Test 07/06/16 18:40 07/07/16 01:05 07/07/16 06:35 Heparin Anti-Xa Act, Unfractionated 0.70IU/mL (0.30-0.70) 0.42IU/mL (0.30-0.70) 0.30IU/mL (0.30-0.70) White Blood Count 6.1x10^3/uL (4.0-11.0) Red Blood Count 3.69x10^6/uL (3.50-5.40) Hemoglobin 11.6g/dL (12.0-15.5) Hematocrit 34.7% (36.0-47.0) Mean Corpuscular Volume 94fL (79-100) Mean Corpuscular Hemoglobin 32pg (25-35) Mean Corpuscular Hemoglobin Concent 34g/dL (31-37) Red Cell Distribution Width 14.4% (11.5-14.5) Platelet Count 121x10^3/uL (140-400) Neutrophils (%) (Auto) 69% (31-73) Lymphocytes (%) (Auto) 20% (24-48) Monocytes (%) (Auto) 11% (0-9) Eosinophils (%) (Auto) 0% (0-3) Basophils (%) (Auto) 0% (0-3) Neutrophils # (Auto) 4.2x10^3uL (1.8-7.7) Lymphocytes # (Auto) 1.2x10^3/uL (1.0-4.8) Monocytes # (Auto) 0.7x10^3/uL (0.0-1.1) Eosinophils # (Auto) 0.0x10^3/uL (0.0-0.7) Basophils # (Auto) 0.0x10^3/uL (0.0-0.2) Sodium Level 144mmol/L (136-145) Potassium Level 3.5mmol/L (3.5-5.1) Chloride Level 102mmol/L (98-107) Carbon Dioxide Level 42mmol/L (21-32) Anion Gap 0 (6-14) Blood Urea Nitrogen 19mg/dL (7-20) Creatinine 0.5mg/dL (0.6-1.0) Estimated GFR (Cockcroft-Gault) 122.0 Glucose Level 102mg/dL (70-99) Calcium Level 8.3mg/dL (8.5-10.1) Review of Systems Review of Systems no fever, chills chest pain Assessment and Plan Assessmemt and Plan Problems Medical Problems: (1) COPD (chronic obstructive pulmonary disease) Status: Acute (2) Respiratory failure Status: Acute Problems: Comment Review of Relevant I have reviewed the following items jovanna (where applicable) has been applied. Labs Laboratory Tests Test 07/05/16 16:05 07/05/16 22:00 07/06/16 03:15 07/06/16 09:00 Troponin I Quantitative 1.470ng/mL (0.000-0.055) 2.447ng/mL (0.000-0.055) White Blood Count 7.8x10^3/uL (4.0-11.0) Red Blood Count 4.10x10^6/uL (3.50-5.40) Hemoglobin 12.8g/dL (12.0-15.5) Hematocrit 39.1% (36.0-47.0) Mean Corpuscular Volume 96fL (79-100) Mean Corpuscular Hemoglobin 31pg (25-35) Mean Corpuscular Hemoglobin Concent 33g/dL (31-37) Red Cell Distribution Width 14.0% (11.5-14.5) Platelet Count 150x10^3/uL (140-400) Neutrophils (%) (Auto) 69% (31-73) Lymphocytes (%) (Auto) 16% (24-48) Monocytes (%) (Auto) 15% (0-9) Eosinophils (%) (Auto) 0% (0-3) Basophils (%) (Auto) 1% (0-3) Neutrophils # (Auto) 5.4x10^3uL (1.8-7.7) Lymphocytes # (Auto) 1.3x10^3/uL (1.0-4.8) Monocytes # (Auto) 1.1x10^3/uL (0.0-1.1) Eosinophils # (Auto) 0.0x10^3/uL (0.0-0.7) Basophils # (Auto) 0.0x10^3/uL (0.0-0.2) Heparin Anti-Xa Act, Unfractionated 0.59IU/mL (0.30-0.70) Sodium Level 143mmol/L (136-145) Potassium Level 4.1mmol/L (3.5-5.1) Chloride Level 97mmol/L (98-107) Carbon Dioxide Level 41mmol/L (21-32) Anion Gap 5 (6-14) Blood Urea Nitrogen 25mg/dL (7-20) Creatinine 0.6mg/dL (0.6-1.0) Estimated GFR (Cockcroft-Gault) 98.8 Glucose Level 123mg/dL (70-99) Lactic Acid Level 1.2mmol/L (0.4-2.0) Calcium Level 9.2mg/dL (8.5-10.1) Influenza Type A Antigen Negative (NEGATIVE) Influenza Type B Antigen Negative (NEGATIVE) Test 07/06/16 11:05 07/06/16 18:40 07/07/16 01:05 07/07/16 06:35 Heparin Anti-Xa Act, Unfractionated 0.63IU/mL (0.30-0.70) 0.70IU/mL (0.30-0.70) 0.42IU/mL (0.30-0.70) 0.30IU/mL (0.30-0.70) White Blood Count 6.1x10^3/uL (4.0-11.0) Red Blood Count 3.69x10^6/uL (3.50-5.40) Hemoglobin 11.6g/dL (12.0-15.5) Hematocrit 34.7% (36.0-47.0) Mean Corpuscular Volume 94fL (79-100) Mean Corpuscular Hemoglobin 32pg (25-35) Mean Corpuscular Hemoglobin Concent 34g/dL (31-37) Red Cell Distribution Width 14.4% (11.5-14.5) Platelet Count 121x10^3/uL (140-400) Neutrophils (%) (Auto) 69% (31-73) Lymphocytes (%) (Auto) 20% (24-48) Monocytes (%) (Auto) 11% (0-9) Eosinophils (%) (Auto) 0% (0-3) Basophils (%) (Auto) 0% (0-3) Neutrophils # (Auto) 4.2x10^3uL (1.8-7.7) Lymphocytes # (Auto) 1.2x10^3/uL (1.0-4.8) Monocytes # (Auto) 0.7x10^3/uL (0.0-1.1) Eosinophils # (Auto) 0.0x10^3/uL (0.0-0.7) Basophils # (Auto) 0.0x10^3/uL (0.0-0.2) Sodium Level 144mmol/L (136-145) Potassium Level 3.5mmol/L (3.5-5.1) Chloride Level 102mmol/L (98-107) Carbon Dioxide Level 42mmol/L (21-32) Anion Gap 0 (6-14) Blood Urea Nitrogen 19mg/dL (7-20) Creatinine 0.5mg/dL (0.6-1.0) Estimated GFR (Cockcroft-Gault) 122.0 Glucose Level 102mg/dL (70-99) Calcium Level 8.3mg/dL (8.5-10.1) Laboratory Tests Test 07/06/16 18:40 07/07/16 01:05 07/07/16 06:35 Heparin Anti-Xa Act, Unfractionated 0.70IU/mL (0.30-0.70) 0.42IU/mL (0.30-0.70) 0.30IU/mL (0.30-0.70) White Blood Count 6.1x10^3/uL (4.0-11.0) Red Blood Count 3.69x10^6/uL (3.50-5.40) Hemoglobin 11.6g/dL (12.0-15.5) Hematocrit 34.7% (36.0-47.0) Mean Corpuscular Volume 94fL (79-100) Mean Corpuscular Hemoglobin 32pg (25-35) Mean Corpuscular Hemoglobin Concent 34g/dL (31-37) Red Cell Distribution Width 14.4% (11.5-14.5) Platelet Count 121x10^3/uL (140-400) Neutrophils (%) (Auto) 69% (31-73) Lymphocytes (%) (Auto) 20% (24-48) Monocytes (%) (Auto) 11% (0-9) Eosinophils (%) (Auto) 0% (0-3) Basophils (%) (Auto) 0% (0-3) Neutrophils # (Auto) 4.2x10^3uL (1.8-7.7) Lymphocytes # (Auto) 1.2x10^3/uL (1.0-4.8) Monocytes # (Auto) 0.7x10^3/uL (0.0-1.1) Eosinophils # (Auto) 0.0x10^3/uL (0.0-0.7) Basophils # (Auto) 0.0x10^3/uL (0.0-0.2) Sodium Level 144mmol/L (136-145) Potassium Level 3.5mmol/L (3.5-5.1) Chloride Level 102mmol/L (98-107) Carbon Dioxide Level 42mmol/L (21-32) Anion Gap 0 (6-14) Blood Urea Nitrogen 19mg/dL (7-20) Creatinine 0.5mg/dL (0.6-1.0) Estimated GFR (Cockcroft-Gault) 122.0 Glucose Level 102mg/dL (70-99) Calcium Level 8.3mg/dL (8.5-10.1) Microbiology 07/05/16 Blood Culture - Preliminary, Resulted NO GROWTH AFTER 2 DAYS Medications Current Medications Methylprednisolone Sodium Succinate (Solu-Medrol 125mg Vial) 125 mg 1X ONCE IV Last administered on 07/05/16 09:18; Start 07/05/16 at 09:00; Stop 07/05/16 at 09:02; Status DC Albuterol/ Ipratropium 3 ml 3 ml 1X ONCE NEB Last administered on 07/05/16 10 :40; Start 07/05/16 at 09:15; Stop 07/05/16 at 09:16; Status DC Ceftriaxone Sodium 50 ml @ 100 mls/hr 1X ONCE IV Last administered on 10:48; Start 07/05/16 at 10:15; Stop 07/05/16 at 10:44; Status DC Azithromycin (Zithromax 500mg Ivpb For Omni) 250 ml @ 250 mls/hr 1X ONCE IV Last administered on 07/05/16 20:39; Start 07/05/16 at 10:15; Stop 07/05/16 at 11:14; Status DC Amlodipine Besylate (Norvasc) 5 mg DAILY PO Last administered on 07/06/16 08: 16; Start 07/05/16 at 14:00; Stop 07/07/16 at 11:13; Status DC Atorvastatin Calcium (Lipitor) 20 mg HS PO ; Start 07/05/16 at 21:00; Stop 07/05 at 21:00; Status DC Carvedilol (Coreg) 6.25 mg BIDWMEALS PO Last administered on 07/07/16 08:15; Start 07/05/16 at 17:00 Citalopram Hydrobromide (Celexa) 10 mg DAILY PO Last administered on 07/07/16 08:23; Start 07/05/16 at 14:00 Clonazepam (Klonopin) 1 mg QHS PO Last administered on 07/06/16 20:39; Start 07/05/16 at 21:00 Furosemide (Lasix) 40 mg DAILY PO Last administered on 07/07/16 08:24; Start 07/05/16 at 14:00 Levothyroxine Sodium (Synthroid) 88 mcg DAILYAC PO Last administered on 08:24; Start 07/06/16 at 07:30 Pantoprazole Sodium (Protonix) 40 mg DAILYAC PO Last administered on 07/07/16 08:24; Start 07/05/16 at 16:30 Losartan Potassium (Cozaar) 100 mg DAILY PO Last administered on 07/07/16 11: 52; Start 07/05/16 at 14:00 Non-Formulary Medication 550 mg DAILY PO ; Start 07/06/16 at 09:00; Stop at 09:00; Status DC Furosemide 20 mg 20 mg 1X ONCE IVP Last administered on 07/05/16 17:22; Start 07/05/16 at 14:15; Stop 07/05/16 at 14:20; Status DC Sodium Chloride (Iv Sodium Chloride 0.9% 1000ml Bag) 1,000 ml @ 60 mls/hr [id number] IV Last administered on 07/06/16 15:31; Start 07/05/16 at 14:15; Stop 07/06/16 at 23:34; Status DC Atorvastatin Calcium 40 mg 40 mg QHS PO Last administered on 07/06/16 20:39; Start 07/05/16 at 21:00 Heparin Sodium/ Dextrose 500 ml @ 0 mls/hr CONT PRN IV SEE I/O RECORD Last administered on 07/06/16 17:41; Start 07/05/16 at 18:00 Heparin Sodium (Porcine) 1,150 unit PRN Q6HRS PRN IV FOR UFH LEVEL LESS THAN 0.2; Start 07/05/16 at 18:00 Albuterol Sulfate (Ventolin Neb Soln) 2.5 mg QID NEB ; Start 07/05/16 at 21:00; Stop 07/05/16 at 21:00; Status DC Albuterol Sulfate (Ventolin Neb Soln) 2.5 mg PRN Q2HR PRN NEB [id number]; Start at 18:00 Prednisone (Prednisone) 30 mg DAILY PO Last administered on 07/07/16 08:24; Start 07/06/16 at 09:00 Albuterol/ Ipratropium (Duoneb) 3 ml RTQID NEB Last administered on 07/07/16 07:42; Start 07/05/16 at 20:00; Stop 07/07/16 at 12:18; Status DC Haloperidol Lactate (Haldol) 1 mg PRN Q1HR PRN IVP MODERATE AGITATION; Start at 23:45 Haloperidol Lactate (Haldol) 2 mg PRN Q1HR PRN IVP SEVERE AGITATION Last administered on 07/05/16 23:42; Start 07/05/16 at 23:45 Ondansetron HCl (Zofran) 4 mg PRN Q6HRS PRN IV NAUSEA/VOMITING Last administered on 07/06/16 03:49; Start 07/06/16 at 03:45 Info (Anti-Coagulation Monitoring By Pharmacy) 1 each PRN DAILY PRN MC SEE COMMENTS Last administered on 07/07/16 12:08; Start 07/06/16 at 07:30 Acetaminophen (Tylenol) 650 mg PRN Q6HRS PRN PO MILD PAIN / TEMP Last administered on 07/07/16 08:24; Start 07/06/16 at 08:15 Tramadol HCl (Ultram) 25 mg PRN Q6HRS PRN PO MODERATE - SEVERE PAIN Last administered on 07/06/16 08:20; Start 07/06/16 at 08:15 Digoxin (Lanoxin) 250 mcg 1X ONCE IV Last administered on 07/07/16 04:38; Start 07/07/16 at 04:45; Stop 07/07/16 at 04:46; Status DC Digoxin (Lanoxin) 250 mcg 1X ONCE IV Last administered on 07/07/16 08:23; Start 07/07/16 at 08:30; Stop 07/07/16 at 08:31; Status DC Ipratropium Hester (Atrovent) 0.5 mg RTQID NEB ; Start 07/07/16 at 16:00 Active Scripts Active Reported Crestor (Rosuvastatin Calcium) 10 Mg Tablet 1 Tab PO DAILY Actonel (Risedronate Sodium) 35 Mg Tablet 1 Tab PO WEEKLY Celexa (Citalopram Hydrobromide) 10 Mg Tablet 1 Tab PO DAILY Amlodipine Besylate 5 Mg Tablet 5 Mg PO DAILY Levothyroxine Sodium 88 Mcg Tablet 88 Mcg PO DAILYAC Atorvastatin Calcium 20 Mg Tablet 20 Mg PO HS Furosemide 40 Mg Tablet 1 Tab PO DAILY Carvedilol 6.25 Mg Tablet 1 Tab PO BID Clonazepam 1 Mg Tablet 1 Tab PO QHS Potassium Gluconate 500 Mg Tablet 550 Mg PO DAILY Meloxicam 15 Mg Tablet 1 Tab PO DAILY Cozaar (Losartan Potassium) 100 Mg Tablet 100 Mg PO DAILY Pantoprazole Sodium 40 Mg Tablet. 1 Tab PO DAILY Vitals/I & O Vital Sign - Last 24 Hours 07/06/16 07/06/16 07/06/16 07/06/16 14:18 15:14 17:28 19:13 Temp 99.6 99.6 Pulse 79 65 Resp 20 B/P 114/58 106/55 Pulse Ox 95 92 O2 Delivery Nasal Cannula Nasal Cannula Nasal Cannula O2 Flow Rate 2.0 2.0 2.0 07/06/16 07/06/16 07/06/16 07/06/16 19:20 20:00 23:02 23:34 Temp 98.9 97.1 98.9 97.1 Pulse 74 66 Resp 24 18 B/P 116/56 110/60 Pulse Ox 96 95 93 O2 Delivery Nasal Cannula Nasal Cannula BiPAP/CPAP BiPAP/CPAP O2 Flow Rate 2.0 3.0 07/07/16 07/07/16 07/07/16 07/07/16 00:46 03:00 03:21 04:20 Temp 98.4 98.4 Pulse 75 Resp 22 B/P 134/69 Pulse Ox 96 94 93 93 O2 Delivery BiPAP/CPAP Nasal Cannula BiPAP/CPAP BiPAP/CPAP O2 Flow Rate 3.0 07/07/16 07/07/16 07/07/16 07/07/16 04:38 07:37 07:43 08:00 Temp 99.2 99.2 Pulse 132 73 Resp 19 B/P 134/69 127/59 Pulse Ox 93 95 O2 Delivery Nasal Cannula Nasal Cannula Nasal Cannula O2 Flow Rate 3.0 3.0 3.0 07/07/16 07/07/16 07/07/16 07/07/16 08:15 08:23 10:30 10:48 Temp 98.1 98.7 98.1 98.7 Pulse 150 131 69 81 Resp 20 21 B/P 127/59 157/59 135/64 117/59 Pulse Ox 97 92 O2 Delivery Nasal Cannula Room Air O2 Flow Rate 3.0 07/07/16 11:52 Pulse 66 B/P 137/64 Intake and Output 07/06/16 07/06/16 07/07/16 15:00 23:00 07:00 Intake Total 360 ml 500 ml 1040 ml Output Total 1050 ml 550 ml Balance 360 ml -550 ml 490 ml TIKA HARMON MD Jul 07, 2016 13:13
[2016-07-07] MEDS: DILTIAZEM HCL 120 MG CAP.ER.24H PO SCH (16:02)
[2016-07-07] MEDS: IPRATROPIUM BROMIDE 0.5 MG/2.5 ML NEBU. NEB SCH ×2 (16:10→19:26)
[2016-07-07] MEDS: TRAMADOL 50 MG TABLET. PO PRN (17:17)
[2016-07-07] MEDS ORDERED: DILTIAZEM 125 MG in IV DEXTROSE 5% 100 ML IV PRN (18:00)
[2016-07-07] MEDS ORDERED: DILTIAZEM IV PUSH 25 MG/5 ML VIAL. IVP ONE (18:15)
[2016-07-07] MEDS: CLONAZEPAM 1 MG TABLET PO SCH (20:54)
[2016-07-07] MEDS: ATORVASTATIN CALCIUM 40 MG TABLET. PO SCH (20:55)
[2016-07-08] MEDS: HEPARIN 25,000UTS/500ML PREMIX 500 ML IV PRN ×2 (01:22→21:43)
[2016-07-08 03:10] VITALS: BP 132/61
[2016-07-08] MEDS: PANTOPRAZOLE 40 MG TABLET. PO SCH (06:20)
[2016-07-08] MEDS: LEVOTHYROXINE 88 MCG TABLET PO SCH (06:20)
[2016-07-08 07:00] VITALS: BP 138/65
[2016-07-08 07:23] LABS: BASO % 1 % (0-3); EOS % 0 % (0-3); HEMATOCRIT 37.1 % (36.0-47.0); HEMOGLOBIN 12.2 g/dL (12.0-15.5); LYMPH # 1.3 x10^3/uL (1.0-4.8); LYMPH % 19 % (24-48); MEAN CORPUSCULAR HEMOGLOBIN 32 pg (25-35); MEAN CORPUSCULAR HGB CONC 33 g/dL (31-37); MEAN CORPUSCULAR VOLUME 96 fL (79-100); MONO % 8 % (0-9); NEUT % 73 % (31-73); PLATELET COUNT 122 x10^3/uL (140-400); RED BLOOD COUNT 3.87 x10^6/uL (3.50-5.40); RED CELL DISTRIBUTION WIDTH 14.2 % (11.5-14.5); WHITE BLOOD COUNT 6.7 x10^3/uL (4.0-11.0)
[2016-07-08 07:25] LABS: CALCIUM 8.6 mg/dL (8.5-10.1); CREATININE 0.6 mg/dL (0.6-1.0); GFR 98.8
[2016-07-08] MEDS: IPRATROPIUM BROMIDE 0.5 MG/2.5 ML NEBU. NEB SCH ×4 (07:55→19:09)
[2016-07-08] MEDS: CARVEDILOL 6.25 MG TABLET PO SCH (08:00)
--- NOTE | 2016-07-08 08:54 | PDOC ---
PROGRESS NOTES Chief Complaint Chief Complaint 1. Hypoxic encephalopathy with underlying dementia 2. Acute on chronic respiratory failure with COPD , chf 3. Acute on chronic systolic CHF: last known EF at 40-45%, now 10% 4. Elevated troponin, possible 2/2 demanding ischemia 5. PAFIB: 6. h/o CAD 7. HTN/HLP 8. Hypothyroidism 9. diarrhea resolved. Plan Heparin gtt, cardiology following PRN BIPAP HR controlled supplemental oxygen Diuresis Monitor electrolytes cardiology and Pulmonology following. History of Present Illness History of Present Illness no fever sob better off BIPAP Vitals Vitals Vital Signs Date Time Temp Pulse Resp B/P Pulse Ox O2 Delivery O2 Flow Rate FiO2 07/08/16 07:57 93 Nasal Cannula 3.0 07/08/16 07:00 98.9 70 20 138/65 98.9 Physical Exam General: Alert, Oriented X3, mild distress Heart: Regular rate Lungs: Crackles (bl mild crackles), Other Abdomen: Normal bowel sounds Extremities: No cyanosis, Other (1+ bilateral LE pitting edema) Skin: No breakdown, No significant lesion Labs LABS Laboratory Tests Test 07/08/16 06:51 White Blood Count 6.7x10^3/uL (4.0-11.0) Red Blood Count 3.87x10^6/uL (3.50-5.40) Hemoglobin 12.2g/dL (12.0-15.5) Hematocrit 37.1% (36.0-47.0) Mean Corpuscular Volume 96fL (79-100) Mean Corpuscular Hemoglobin 32pg (25-35) Mean Corpuscular Hemoglobin Concent 33g/dL (31-37) Red Cell Distribution Width 14.2% (11.5-14.5) Platelet Count 122x10^3/uL (140-400) Neutrophils (%) (Auto) 73% (31-73) Lymphocytes (%) (Auto) 19% (24-48) Monocytes (%) (Auto) 8% (0-9) Eosinophils (%) (Auto) 0% (0-3) Basophils (%) (Auto) 1% (0-3) Neutrophils # (Auto) 4.9x10^3uL (1.8-7.7) Lymphocytes # (Auto) 1.3x10^3/uL (1.0-4.8) Monocytes # (Auto) 0.5x10^3/uL (0.0-1.1) Eosinophils # (Auto) 0.0x10^3/uL (0.0-0.7) Basophils # (Auto) 0.0x10^3/uL (0.0-0.2) Heparin Anti-Xa Act, Unfractionated 0.22IU/mL (0.30-0.70) Sodium Level 143mmol/L (136-145) Potassium Level 3.0mmol/L (3.5-5.1) Chloride Level 100mmol/L (98-107) Carbon Dioxide Level 37mmol/L (21-32) Anion Gap 6 (6-14) Blood Urea Nitrogen 13mg/dL (7-20) Creatinine 0.6mg/dL (0.6-1.0) Estimated GFR (Cockcroft-Gault) 98.8 Glucose Level 146mg/dL (70-99) Calcium Level 8.6mg/dL (8.5-10.1) Assessment and Plan Assessmemt and Plan Problems Medical Problems: (1) COPD (chronic obstructive pulmonary disease) Status: Acute (2) Respiratory failure Status: Acute Problems: Comment Review of Relevant I have reviewed the following items jovanna (where applicable) has been applied. Labs Laboratory Tests Test 07/06/16 09:00 07/06/16 11:05 07/06/16 18:40 07/07/16 01:05 Influenza Type A Antigen Negative (NEGATIVE) Influenza Type B Antigen Negative (NEGATIVE) Heparin Anti-Xa Act, Unfractionated 0.63IU/mL (0.30-0.70) 0.70IU/mL (0.30-0.70) 0.42IU/mL (0.30-0.70) Test 07/07/16 06:35 07/08/16 06:51 White Blood Count 6.1x10^3/uL (4.0-11.0) 6.7x10^3/uL (4.0-11.0) Red Blood Count 3.69x10^6/uL (3.50-5.40) 3.87x10^6/uL (3.50-5.40) Hemoglobin 11.6g/dL (12.0-15.5) 12.2g/dL (12.0-15.5) Hematocrit 34.7% (36.0-47.0) 37.1% (36.0-47.0) Mean Corpuscular Volume 94fL (79-100) 96fL (79-100) Mean Corpuscular Hemoglobin 32pg (25-35) 32pg (25-35) Mean Corpuscular Hemoglobin Concent 34g/dL (31-37) 33g/dL (31-37) Red Cell Distribution Width 14.4% (11.5-14.5) 14.2% (11.5-14.5) Platelet Count 121x10^3/uL (140-400) 122x10^3/uL (140-400) Neutrophils (%) (Auto) 69% (31-73) 73% (31-73) Lymphocytes (%) (Auto) 20% (24-48) 19% (24-48) Monocytes (%) (Auto) 11% (0-9) 8% (0-9) Eosinophils (%) (Auto) 0% (0-3) 0% (0-3) Basophils (%) (Auto) 0% (0-3) 1% (0-3) Neutrophils # (Auto) 4.2x10^3uL (1.8-7.7) 4.9x10^3uL (1.8-7.7) Lymphocytes # (Auto) 1.2x10^3/uL (1.0-4.8) 1.3x10^3/uL (1.0-4.8) Monocytes # (Auto) 0.7x10^3/uL (0.0-1.1) 0.5x10^3/uL (0.0-1.1) Eosinophils # (Auto) 0.0x10^3/uL (0.0-0.7) 0.0x10^3/uL (0.0-0.7) Basophils # (Auto) 0.0x10^3/uL (0.0-0.2) 0.0x10^3/uL (0.0-0.2) Heparin Anti-Xa Act, Unfractionated 0.30IU/mL (0.30-0.70) 0.22IU/mL (0.30-0.70) Sodium Level 144mmol/L (136-145) 143mmol/L (136-145) Potassium Level 3.5mmol/L (3.5-5.1) 3.0mmol/L (3.5-5.1) Chloride Level 102mmol/L (98-107) 100mmol/L (98-107) Carbon Dioxide Level 42mmol/L (21-32) 37mmol/L (21-32) Anion Gap 0 (6-14) 6 (6-14) Blood Urea Nitrogen 19mg/dL (7-20) 13mg/dL (7-20) Creatinine 0.5mg/dL (0.6-1.0) 0.6mg/dL (0.6-1.0) Estimated GFR (Cockcroft-Gault) 122.0 98.8 Glucose Level 102mg/dL (70-99) 146mg/dL (70-99) Calcium Level 8.3mg/dL (8.5-10.1) 8.6mg/dL (8.5-10.1) Laboratory Tests Test 07/08/16 06:51 White Blood Count 6.7x10^3/uL (4.0-11.0) Red Blood Count 3.87x10^6/uL (3.50-5.40) Hemoglobin 12.2g/dL (12.0-15.5) Hematocrit 37.1% (36.0-47.0) Mean Corpuscular Volume 96fL (79-100) Mean Corpuscular Hemoglobin 32pg (25-35) Mean Corpuscular Hemoglobin Concent 33g/dL (31-37) Red Cell Distribution Width 14.2% (11.5-14.5) Platelet Count 122x10^3/uL (140-400) Neutrophils (%) (Auto) 73% (31-73) Lymphocytes (%) (Auto) 19% (24-48) Monocytes (%) (Auto) 8% (0-9) Eosinophils (%) (Auto) 0% (0-3) Basophils (%) (Auto) 1% (0-3) Neutrophils # (Auto) 4.9x10^3uL (1.8-7.7) Lymphocytes # (Auto) 1.3x10^3/uL (1.0-4.8) Monocytes # (Auto) 0.5x10^3/uL (0.0-1.1) Eosinophils # (Auto) 0.0x10^3/uL (0.0-0.7) Basophils # (Auto) 0.0x10^3/uL (0.0-0.2) Heparin Anti-Xa Act, Unfractionated 0.22IU/mL (0.30-0.70) Sodium Level 143mmol/L (136-145) Potassium Level 3.0mmol/L (3.5-5.1) Chloride Level 100mmol/L (98-107) Carbon Dioxide Level 37mmol/L (21-32) Anion Gap 6 (6-14) Blood Urea Nitrogen 13mg/dL (7-20) Creatinine 0.6mg/dL (0.6-1.0) Estimated GFR (Cockcroft-Gault) 98.8 Glucose Level 146mg/dL (70-99) Calcium Level 8.6mg/dL (8.5-10.1) Microbiology 07/05/16 Blood Culture - Preliminary, Resulted NO GROWTH AFTER 2 DAYS Medications Current Medications Methylprednisolone Sodium Succinate (Solu-Medrol 125mg Vial) 125 mg 1X ONCE IV Last administered on 07/05/16 09:18; Start 07/05/16 at 09:00; Stop 07/05/16 at 09:02; Status DC Albuterol/ Ipratropium 3 ml 3 ml 1X ONCE NEB Last administered on 07/05/16 10 :40; Start 07/05/16 at 09:15; Stop 07/05/16 at 09:16; Status DC Ceftriaxone Sodium 50 ml @ 100 mls/hr 1X ONCE IV Last administered on 10:48; Start 07/05/16 at 10:15; Stop 07/05/16 at 10:44; Status DC Azithromycin (Zithromax 500mg Ivpb For Omni) 250 ml @ 250 mls/hr 1X ONCE IV Last administered on 07/05/16 20:39; Start 07/05/16 at 10:15; Stop 07/05/16 at 11:14; Status DC Amlodipine Besylate (Norvasc) 5 mg DAILY PO Last administered on 07/06/16 08: 16; Start 07/05/16 at 14:00; Stop 07/07/16 at 11:13; Status DC Atorvastatin Calcium (Lipitor) 20 mg HS PO ; Start 07/05/16 at 21:00; Stop 07/05 at 21:00; Status DC Carvedilol (Coreg) 6.25 mg BIDWMEALS PO Last administered on 07/07/16 17:10; Start 07/05/16 at 17:00 Citalopram Hydrobromide (Celexa) 10 mg DAILY PO Last administered on 07/07/16 08:23; Start 07/05/16 at 14:00 Clonazepam (Klonopin) 1 mg QHS PO Last administered on 07/07/16 20:54; Start 07/05/16 at 21:00 Furosemide (Lasix) 40 mg DAILY PO Last administered on 07/07/16 08:24; Start 07/05/16 at 14:00 Levothyroxine Sodium (Synthroid) 88 mcg DAILYAC PO Last administered on 06:20; Start 07/06/16 at 07:30 Pantoprazole Sodium (Protonix) 40 mg DAILYAC PO Last administered on 07/08/16 06:20; Start 07/05/16 at 16:30 Losartan Potassium (Cozaar) 100 mg DAILY PO Last administered on 07/07/16 11: 52; Start 07/05/16 at 14:00 Non-Formulary Medication 550 mg DAILY PO ; Start 07/06/16 at 09:00; Stop at 09:00; Status DC Furosemide 20 mg 20 mg 1X ONCE IVP Last administered on 07/05/16 17:22; Start 07/05/16 at 14:15; Stop 07/05/16 at 14:20; Status DC Sodium Chloride (Iv Sodium Chloride 0.9% 1000ml Bag) 1,000 ml @ 60 mls/hr [id number] IV Last administered on 07/06/16 15:31; Start 07/05/16 at 14:15; Stop 07/06/16 at 23:34; Status DC Atorvastatin Calcium 40 mg 40 mg QHS PO Last administered on 07/07/16 20:55; Start 07/05/16 at 21:00 Heparin Sodium/ Dextrose 500 ml @ 0 mls/hr CONT PRN IV SEE I/O RECORD Last administered on 07/08/16 01:22; Start 07/05/16 at 18:00 Heparin Sodium (Porcine) 1,150 unit PRN Q6HRS PRN IV FOR UFH LEVEL LESS THAN 0.2; Start 07/05/16 at 18:00 Albuterol Sulfate (Ventolin Neb Soln) 2.5 mg QID NEB ; Start 07/05/16 at 21:00; Stop 07/05/16 at 21:00; Status DC Albuterol Sulfate (Ventolin Neb Soln) 2.5 mg PRN Q2HR PRN NEB DYSPNEA; Start at 18:00 Prednisone (Prednisone) 30 mg DAILY PO Last administered on 07/07/16 08:24; Start 07/06/16 at 09:00 Albuterol/ Ipratropium (Duoneb) 3 ml RTQID NEB Last administered on 07/07/16 07:42; Start 07/05/16 at 20:00; Stop 07/07/16 at 12:18; Status DC Haloperidol Lactate (Haldol) 1 mg PRN Q1HR PRN IVP MODERATE AGITATION; Start at 23:45 Haloperidol Lactate (Haldol) 2 mg PRN Q1HR PRN IVP SEVERE AGITATION Last administered on 07/05/16 23:42; Start 07/05/16 at 23:45 Ondansetron HCl (Zofran) 4 mg PRN Q6HRS PRN IV NAUSEA/VOMITING Last administered on 07/06/16 03:49; Start 07/06/16 at 03:45 Info (Anti-Coagulation Monitoring By Pharmacy) 1 each PRN DAILY PRN MC SEE COMMENTS Last administered on 07/07/16 12:08; Start 07/06/16 at 07:30 Acetaminophen (Tylenol) 650 mg PRN Q6HRS PRN PO MILD PAIN / TEMP Last administered on 07/07/16 08:24; Start 07/06/16 at 08:15 Tramadol HCl (Ultram) 25 mg PRN Q6HRS PRN PO MODERATE - SEVERE PAIN Last administered on 07/07/16 17:17; Start 07/06/16 at 08:15 Digoxin (Lanoxin) 250 mcg 1X ONCE IV Last administered on 07/07/16 04:38; Start 07/07/16 at 04:45; Stop 07/07/16 at 04:46; Status DC Digoxin (Lanoxin) 250 mcg 1X ONCE IV Last administered on 07/07/16 08:23; Start 07/07/16 at 08:30; Stop 07/07/16 at 08:31; Status DC Ipratropium Aurora (Atrovent) 0.5 mg RTQID NEB Last administered on 07/08/16 07:55; Start 07/07/16 at 16:00 Diltiazem HCl 120 mg 120 mg DAILY PO Last administered on 07/07/16 16:02; Start 07/07/16 at 16:00 Diltiazem HCl/ Dextrose (Cardizem) 125 ml @ 0 mls/hr CONT PRN IV SEE I/O RECORD Last administered on 07/07/16 18:33; Start 07/07/16 at 18:00 Diltiazem HCl (Cardizem) 5 mg 1X ONCE IVP Last administered on 07/07/16 18:28 ; Start 07/07/16 at 18:15; Stop 07/07/16 at 18:16; Status DC Active Scripts Active Reported Crestor (Rosuvastatin Calcium) 10 Mg Tablet 1 Tab PO DAILY Actonel (Risedronate Sodium) 35 Mg Tablet 1 Tab PO WEEKLY Celexa (Citalopram Hydrobromide) 10 Mg Tablet 1 Tab PO DAILY Amlodipine Besylate 5 Mg Tablet 5 Mg PO DAILY Levothyroxine Sodium 88 Mcg Tablet 88 Mcg PO DAILYAC Atorvastatin Calcium 20 Mg Tablet 20 Mg PO HS Furosemide 40 Mg Tablet 1 Tab PO DAILY Carvedilol 6.25 Mg Tablet 1 Tab PO BID Clonazepam 1 Mg Tablet 1 Tab PO QHS Potassium Gluconate 500 Mg Tablet 550 Mg PO DAILY Meloxicam 15 Mg Tablet 1 Tab PO DAILY Cozaar (Losartan Potassium) 100 Mg Tablet 100 Mg PO DAILY Pantoprazole Sodium 40 Mg Tablet. 1 Tab PO DAILY Vitals/I & O Vital Sign - Last 24 Hours 07/07/16 07/07/16 07/07/16 07/07/16 10:30 10:48 11:52 15:00 Temp 98.1 98.7 97.6 98.1 98.7 97.6 Pulse 69 81 66 75 Resp 20 21 20 B/P 135/64 117/59 137/64 121/62 Pulse Ox 97 92 95 O2 Delivery Nasal Cannula Room Air Nasal Cannula O2 Flow Rate 3.0 3.0 07/07/16 07/07/16 07/07/16 07/07/16 16:02 16:10 17:10 17:17 Pulse 150 114 Resp 20 B/P 143/69 144/68 Pulse Ox 96 O2 Delivery Nasal Cannula Nasal Cannula O2 Flow Rate 3.0 07/07/16 07/07/16 07/07/16 07/07/16 18:17 18:28 19:20 19:26 Temp 98.7 98.7 Pulse 120 67 Resp 16 16 B/P 138/74 119/59 Pulse Ox 95 96 O2 Delivery Room Air Nasal Cannula Nasal Cannula O2 Flow Rate 2.0 3.0 07/07/16 07/07/16 07/08/16 07/08/16 20:00 23:10 01:55 03:10 Temp 98.3 98.6 98.3 98.6 Pulse 58 64 Resp 18 16 B/P 128/59 132/61 Pulse Ox 93 95 O2 Delivery Nasal Cannula Nasal Cannula BiPAP/CPAP BiPAP/CPAP O2 Flow Rate 3.0 2.0 2.0 07/08/16 07/08/16 07/08/16 03:40 07:00 07:57 Temp 98.9 98.9 Pulse 70 Resp 20 B/P 138/65 Pulse Ox 94 94 93 O2 Delivery BiPAP/CPAP BiPAP/CPAP Nasal Cannula O2 Flow Rate 2.0 3.0 Intake and Output 07/07/16 07/07/16 07/08/16 15:00 23:00 07:00 Intake Total 780 ml Output Total 300 ml 650 ml 520 ml Balance -300 ml 130 ml -520 ml ANTONIO HENRY MD Jul 08, 2016 08:54
[2016-07-08] MEDS: DILTIAZEM HCL 120 MG CAP.ER.24H PO SCH (09:00)
--- NOTE | 2016-07-08 10:35 | PDOC ---
CARDIO Progress Notes Date and Time Date of Service 07/08/2016 Time of Evaluation 0930 Subjective Subjective: No Chest Pain, No shortness of breath, No Palpitations, No Dizziness, Other (did not like breakfast) Vitals Vitals Vital Signs Date Time Temp Pulse Resp B/P Pulse Ox O2 Delivery O2 Flow Rate FiO2 07/08/16 07:57 93 Nasal Cannula 3.0 07/08/16 07:00 98.9 70 20 138/65 98.9 Weight Weight [ ] Input and Output Intake and Output Intake and Output 07/08/16 07:00 Intake Total 780 ml Output Total 1470 ml Balance -690 ml Intake Oral 780 ml Output Urine Total 1470 ml # Voids 1 # Bowel Movements 1 Laboratory Labs Laboratory Tests Test 07/08/16 06:51 White Blood Count 6.7x10^3/uL (4.0-11.0) Red Blood Count 3.87x10^6/uL (3.50-5.40) Hemoglobin 12.2g/dL (12.0-15.5) Hematocrit 37.1% (36.0-47.0) Mean Corpuscular Volume 96fL (79-100) Mean Corpuscular Hemoglobin 32pg (25-35) Mean Corpuscular Hemoglobin Concent 33g/dL (31-37) Red Cell Distribution Width 14.2% (11.5-14.5) Platelet Count 122x10^3/uL (140-400) Neutrophils (%) (Auto) 73% (31-73) Lymphocytes (%) (Auto) 19% (24-48) Monocytes (%) (Auto) 8% (0-9) Eosinophils (%) (Auto) 0% (0-3) Basophils (%) (Auto) 1% (0-3) Neutrophils # (Auto) 4.9x10^3uL (1.8-7.7) Lymphocytes # (Auto) 1.3x10^3/uL (1.0-4.8) Monocytes # (Auto) 0.5x10^3/uL (0.0-1.1) Eosinophils # (Auto) 0.0x10^3/uL (0.0-0.7) Basophils # (Auto) 0.0x10^3/uL (0.0-0.2) Heparin Anti-Xa Act, Unfractionated 0.22IU/mL (0.30-0.70) Sodium Level 143mmol/L (136-145) Potassium Level 3.0mmol/L (3.5-5.1) Chloride Level 100mmol/L (98-107) Carbon Dioxide Level 37mmol/L (21-32) Anion Gap 6 (6-14) Blood Urea Nitrogen 13mg/dL (7-20) Creatinine 0.6mg/dL (0.6-1.0) Estimated GFR (Cockcroft-Gault) 98.8 Glucose Level 146mg/dL (70-99) Calcium Level 8.6mg/dL (8.5-10.1) Magnesium Level 2.1mg/dL (1.8-2.4) Microbiology Micro Microbiology 07/05/16 Blood Culture - Preliminary, Resulted NO GROWTH AFTER 3 DAYS Physical Exam HEENT: Neck Supple W Full Motion Chest: Symmetric LUNGS: Other (bibasilar crackles) Heart: S1S2, murmurs (3/6 systolic murmur to LLS border diffusing to apical border) Abdomen: Soft N/T Extremities: No Calf Tenderness, Other (trace LE edema) Neurology: alert, oriented, follow commands Assessment Assessment 1. Hypoxic encephalopathy with underlying dementia: resolved 2. Acute on chronic respiratory failure with underlying COPD 3. Acute on chronic systolic CHF: last known EF at 40-45% then now 10-15%. Appears compensated. 4. NSTEMI: peaked troponin 2.4, CP free. Suspect type 2 but ischemic pathology could not be completely ruled. 5. Severe cardiomyopathy with moderate to severe MR. EKG SR/LVH unchanged by comparison. 5. PAFIB: sustained AFIB RVR yesterday and has converted to back to SR. 6. CAD: unable to decipher any LHC in the past and when, failed follow up in the past for f/u MPI. 7. HTN/HLP: controlled BP, lipids not on goal 8. Hypothyroidism: TSH not at therapeutic level at 7.1. Not taking replacement on an empty stomach or skipping dose? 9. Prerenal azotemia: resolved 10. Possible noncompliance Recommendations 1. Follow pulmonary recommendation 2. Continue with diuretic therapy 3. Continue with ASA for stroke prevention. Not a candidate for alf OAC/ NOAC with high risk for traumatic falls. 4. DC cardizem, coreg and start on metoprolol. 5. Replace K, check Mg. 6. Continue with secondary prevention. Continue on heparin drip for now. 7. Discussed pt regarding medical optimization, no one else would be able to help with her decision making except for her spouse, Only has one child and she is . 8. With significant chronic conditions including dementia and frailty, she is likely not a candidate for invasive procedures, will discuss with primary manager application development 9. Significant discussion regarding conservative vs aggressive treatment measures will be needed, consider palliative care consult. LARON SALINAS APRN Jul 08, 2016 10:35
[2016-07-08] MEDS: FUROSEMIDE 40 MG TABLET PO SCH (10:41)
[2016-07-08] MEDS: PREDNISONE 20 MG TABLET PO SCH (10:41)
[2016-07-08] MEDS: LOSARTAN POTASSIUM 50 MG TABLET. PO SCH (10:41)
[2016-07-08] MEDS: TRAMADOL 50 MG TABLET. PO PRN (10:42)
[2016-07-08] MEDS: CITALOPRAM 10 MG TABLET. PO SCH (10:43)
[2016-07-08] MEDS: POTASSIUM CHLORIDE 20 MEQ TABLET.ER. PO SCH ×2 (10:43→13:04)
[2016-07-08 11:00] VITALS: BP 132/62
[2016-07-08] MEDS: ASPIRIN ENTERIC COATED 81 MG TABLET.DR. PO SCH (13:04)
[2016-07-08] MEDS: ANTI-COAG MONITOR BY PHARMACY. MC PRN (13:23)
[2016-07-08 15:00] VITALS: BP 158/72
--- NOTE | 2016-07-08 19:33 | PDOC ---
PULMONARY PROGRESS NOTES Subjective OFF BIPAP FEELS LESS SOA Vitals Vital Signs Date Time Temp Pulse Resp B/P Pulse Ox O2 Delivery O2 Flow Rate FiO2 07/08/16 19:10 98 Nasal Cannula 3.0 07/08/16 15:00 98.6 81 20 158/72 98.6 General: Alert, No acute distress HEENT: Other (nc at perrl, ) Lungs: Crackles Cardiovascular: S1, S2 Abdomen: Soft, Non-tender Neuro Exam: Alert Extremities: No Edema Skin: Warm Labs Laboratory Tests Test 07/07/16 01:05 07/07/16 06:35 07/08/16 06:51 Heparin Anti-Xa Act, Unfractionated 0.42IU/mL (0.30-0.70) 0.30IU/mL (0.30-0.70) 0.22IU/mL (0.30-0.70) White Blood Count 6.1x10^3/uL (4.0-11.0) 6.7x10^3/uL (4.0-11.0) Red Blood Count 3.69x10^6/uL (3.50-5.40) 3.87x10^6/uL (3.50-5.40) Hemoglobin 11.6g/dL (12.0-15.5) 12.2g/dL (12.0-15.5) Hematocrit 34.7% (36.0-47.0) 37.1% (36.0-47.0) Mean Corpuscular Volume 94fL (79-100) 96fL (79-100) Mean Corpuscular Hemoglobin 32pg (25-35) 32pg (25-35) Mean Corpuscular Hemoglobin Concent 34g/dL (31-37) 33g/dL (31-37) Red Cell Distribution Width 14.4% (11.5-14.5) 14.2% (11.5-14.5) Platelet Count 121x10^3/uL (140-400) 122x10^3/uL (140-400) Neutrophils (%) (Auto) 69% (31-73) 73% (31-73) Lymphocytes (%) (Auto) 20% (24-48) 19% (24-48) Monocytes (%) (Auto) 11% (0-9) 8% (0-9) Eosinophils (%) (Auto) 0% (0-3) 0% (0-3) Basophils (%) (Auto) 0% (0-3) 1% (0-3) Neutrophils # (Auto) 4.2x10^3uL (1.8-7.7) 4.9x10^3uL (1.8-7.7) Lymphocytes # (Auto) 1.2x10^3/uL (1.0-4.8) 1.3x10^3/uL (1.0-4.8) Monocytes # (Auto) 0.7x10^3/uL (0.0-1.1) 0.5x10^3/uL (0.0-1.1) Eosinophils # (Auto) 0.0x10^3/uL (0.0-0.7) 0.0x10^3/uL (0.0-0.7) Basophils # (Auto) 0.0x10^3/uL (0.0-0.2) 0.0x10^3/uL (0.0-0.2) Sodium Level 144mmol/L (136-145) 143mmol/L (136-145) Potassium Level 3.5mmol/L (3.5-5.1) 3.0mmol/L (3.5-5.1) Chloride Level 102mmol/L (98-107) 100mmol/L (98-107) Carbon Dioxide Level 42mmol/L (21-32) 37mmol/L (21-32) Anion Gap 0 (6-14) 6 (6-14) Blood Urea Nitrogen 19mg/dL (7-20) 13mg/dL (7-20) Creatinine 0.5mg/dL (0.6-1.0) 0.6mg/dL (0.6-1.0) Estimated GFR (Cockcroft-Gault) 122.0 98.8 Glucose Level 102mg/dL (70-99) 146mg/dL (70-99) Calcium Level 8.3mg/dL (8.5-10.1) 8.6mg/dL (8.5-10.1) Magnesium Level 2.1mg/dL (1.8-2.4) Laboratory Tests Test 07/08/16 06:51 White Blood Count 6.7x10^3/uL (4.0-11.0) Red Blood Count 3.87x10^6/uL (3.50-5.40) Hemoglobin 12.2g/dL (12.0-15.5) Hematocrit 37.1% (36.0-47.0) Mean Corpuscular Volume 96fL (79-100) Mean Corpuscular Hemoglobin 32pg (25-35) Mean Corpuscular Hemoglobin Concent 33g/dL (31-37) Red Cell Distribution Width 14.2% (11.5-14.5) Platelet Count 122x10^3/uL (140-400) Neutrophils (%) (Auto) 73% (31-73) Lymphocytes (%) (Auto) 19% (24-48) Monocytes (%) (Auto) 8% (0-9) Eosinophils (%) (Auto) 0% (0-3) Basophils (%) (Auto) 1% (0-3) Neutrophils # (Auto) 4.9x10^3uL (1.8-7.7) Lymphocytes # (Auto) 1.3x10^3/uL (1.0-4.8) Monocytes # (Auto) 0.5x10^3/uL (0.0-1.1) Eosinophils # (Auto) 0.0x10^3/uL (0.0-0.7) Basophils # (Auto) 0.0x10^3/uL (0.0-0.2) Heparin Anti-Xa Act, Unfractionated 0.22IU/mL (0.30-0.70) Sodium Level 143mmol/L (136-145) Potassium Level 3.0mmol/L (3.5-5.1) Chloride Level 100mmol/L (98-107) Carbon Dioxide Level 37mmol/L (21-32) Anion Gap 6 (6-14) Blood Urea Nitrogen 13mg/dL (7-20) Creatinine 0.6mg/dL (0.6-1.0) Estimated GFR (Cockcroft-Gault) 98.8 Glucose Level 146mg/dL (70-99) Calcium Level 8.6mg/dL (8.5-10.1) Magnesium Level 2.1mg/dL (1.8-2.4) Medications Active Scripts Medications Dose Route/Sig Days Date Category Crestor (Rosuvastatin Calcium) 10 Mg Tablet 1 Tab PO DAILY 11/10/15 Reported Actonel (Risedronate Sodium) 35 Mg Tablet 1 Tab PO WEEKLY 11/10/15 Reported Celexa (Citalopram Hydrobromide) 10 Mg Tablet 1 Tab PO DAILY 11/10/15 Reported Amlodipine Besylate 5 Mg Tablet 5 Mg PO DAILY 11/10/15 Reported Levothyroxine Sodium 88 Mcg Tablet 88 Mcg PO DAILYAC 11/10/15 Reported Atorvastatin Calcium 20 Mg Tablet 20 Mg PO HS 11/10/15 Reported Furosemide 40 Mg Tablet 1 Tab PO DAILY 11/10/15 Reported Carvedilol 6.25 Mg Tablet 1 Tab PO BID 11/10/15 Reported Clonazepam 1 Mg Tablet 1 Tab PO QHS 11/10/15 Reported Potassium Gluconate 500 Mg Tablet 550 Mg PO DAILY 11/10/15 Reported Meloxicam 15 Mg Tablet 1 Tab PO DAILY 11/10/15 Reported Cozaar (Losartan Potassium) 100 Mg Tablet 100 Mg PO DAILY 11/10/15 Reported Pantoprazole Sodium 40 Mg Tablet.dr 1 Tab PO DAILY 11/10/15 Reported Comments cxr reviewed, Coarse interstitial opacities throughout the bilateral lungs. A portion of this is likely secondary to chronic lung disease but superimposed interstitial edema or infiltrate is possible Impression . IMPRESSION: 1. [id number]-rlslyxa respiratory failure. 2. Acute exacerbation of chronic obstructive pulmonary disease. 3. Chronic heart failure, possible in conjunction with acute systolic heart failure. EF 10% 4. Elevated troponin level, suspect secondary to increased demand. 5. Hypothyroidism. 6. Acute metabolic encephalopathy, improved. Plan . HOME WHEN CLEARED BY CARD TAPER PRED LETITIA LICEA MD Jul 08, 2016 19:33
[2016-07-08 19:40] VITALS: BP 129/65
[2016-07-08] MEDS: METOPROLOL TART IMMED RELEASE 25 MG TABLET PO SCH (20:18)
[2016-07-08] MEDS: ATORVASTATIN CALCIUM 40 MG TABLET. PO SCH (20:19)
[2016-07-08] MEDS: CLONAZEPAM 1 MG TABLET PO SCH (20:19)
[2016-07-08 22:45] VITALS: BP 127/79
[2016-07-09 03:00] VITALS: BP 138/79
[2016-07-09] MEDS: HEPARIN 25,000UTS/500ML PREMIX 500 ML IV PRN (05:35)
[2016-07-09] MEDS: IPRATROPIUM BROMIDE 0.5 MG/2.5 ML NEBU. NEB SCH ×4 (07:12→19:20)
[2016-07-09 07:30] VITALS: BP 155/73
[2016-07-09] MEDS: PANTOPRAZOLE 40 MG TABLET. PO SCH (08:20)
[2016-07-09] MEDS: LEVOTHYROXINE 88 MCG TABLET PO SCH (08:20)
[2016-07-09] MEDS: METOPROLOL TART IMMED RELEASE 25 MG TABLET PO SCH ×2 (09:28→22:34)
[2016-07-09] MEDS: PREDNISONE 20 MG TABLET PO SCH (09:28)
[2016-07-09] MEDS: ASPIRIN ENTERIC COATED 81 MG TABLET.DR. PO SCH (09:29)
[2016-07-09] MEDS: TRAMADOL 50 MG TABLET. PO PRN ×2 (09:29→22:35)
[2016-07-09] MEDS: FUROSEMIDE 40 MG TABLET PO SCH (09:29)
[2016-07-09] MEDS: CITALOPRAM 10 MG TABLET. PO SCH (09:29)
[2016-07-09] MEDS: LOSARTAN POTASSIUM 50 MG TABLET. PO SCH (09:29)
[2016-07-09 10:15] VITALS: BP 121/63
--- NOTE | 2016-07-09 12:31 | PDOC ---
CARDIO Progress Notes Date and Time Date of Service 07/09/2016 Time of Evaluation 1000 Subjective Subjective: No Chest Pain, No shortness of breath, No Palpitations, No Dizziness, Other (wants to go home; periods of confusion and irritability) Vitals Vitals Vital Signs Date Time Temp Pulse Resp B/P Pulse Ox O2 Delivery O2 Flow Rate FiO2 07/09/16 11:18 94 Nasal Cannula 3.0 07/09/16 10:29 18 07/09/16 10:15 97.9 67 121/63 97.9 Weight Weight [ ] Input and Output Intake and Output Intake and Output 07/09/16 07:00 Intake Total 1020 ml Output Total 1450 ml Balance -430 ml Intake Oral 1020 ml Output Urine Total 1450 ml # Voids 2 # Bowel Movements 1 Laboratory Labs Laboratory Tests Test 07/08/16 19:55 07/09/16 03:44 07/09/16 09:45 Heparin Anti-Xa Act, Unfractionated 0.23IU/mL (0.30-0.70) 0.38IU/mL (0.30-0.70) 0.55IU/mL (0.30-0.70) Microbiology Micro Microbiology 07/05/16 Blood Culture - Preliminary, Resulted NO GROWTH AFTER 4 DAYS Physical Exam HEENT: Neck Supple W Full Motion Chest: Symmetric LUNGS: Other (bibasilar crackles) Heart: S1S2, RRR (No significant ectopies overnight), murmurs (3/6 systolic murmur to LLS border diffusing to apical border) Abdomen: Soft N/T Extremities: No Calf Tenderness, Other (trace LE edema) Neurology: alert, oriented, follow commands Assessment Assessment 1. Hypoxic encephalopathy with underlying dementia: resolved 2. Acute on chronic respiratory failure with underlying COPD 3. Acute on chronic systolic CHF: last known EF at 40-45% then now 10-15%. Compensated. 4. NSTEMI: peaked troponin 2.4, Remains CP free. Suspect type 2 but ischemic pathology could not be completely ruled out. 5. Severe cardiomyopathy with moderate to severe MR. EKG SR/LVH unchanged by comparison. 5. PAFIB: AFIB RVR yesterday and has been SR since conversion. 6. CAD: unable to decipher any LHC in the past and when, failed follow up in the past for f/u MPI. 7. HTN/HLP 8. Hypothyroidism: TSH not at therapeutic level at 7.1. Not taking replacement on an empty stomach or skipping dose? 9. Prerenal azotemia: resolved 10. Possible noncompliance Recommendations 1. Follow pulmonary recommendation 2. Continue with diuretic therapy, replace K and established daily dosing 3. Continue with ASA for stroke prevention. Not a candidate for sueding machine tender OAC/ NOAC with high risk for traumatic falls. 4. Continue with metoprolol. 5. DC heparin, will consider starting on plavix. 6. Continue with secondary prevention and med optimization. 7. With significant chronic conditions including dementia and frailty, she is likely not a candidate for invasive procedures 8. Significant discussion regarding conservative vs aggressive treatment measures will be needed, palliative care consult pending today 9. Recommend SNU when discharge. Follow up in office in 2-3 weeks and will reevaluate. 10. Daily weight and fluid restriction 2 L at least with intake of 1500 ml daily. LARON SALINAS APRN Jul 09, 2016 12:31
--- NOTE | 2016-07-09 13:36 | PDOC ---
PULMONARY PROGRESS NOTES Subjective feel better Vitals Vital Signs Date Time Temp Pulse Resp B/P Pulse Ox O2 Delivery O2 Flow Rate FiO2 07/09/16 11:18 94 Nasal Cannula 3.0 07/09/16 10:29 18 07/09/16 10:15 97.9 67 121/63 97.9 General: Alert, No acute distress HEENT: Other (nc at formerly named [facility], ) Lungs: Other Cardiovascular: S1, S2 Abdomen: Soft, Non-tender Neuro Exam: Alert Extremities: No Edema Skin: Warm Labs Laboratory Tests Test 07/08/16 06:51 07/08/16 19:55 07/09/16 03:44 07/09/16 09:45 White Blood Count 6.7x10^3/uL (4.0-11.0) Red Blood Count 3.87x10^6/uL (3.50-5.40) Hemoglobin 12.2g/dL (12.0-15.5) Hematocrit 37.1% (36.0-47.0) Mean Corpuscular Volume 96fL (79-100) Mean Corpuscular Hemoglobin 32pg (25-35) Mean Corpuscular Hemoglobin Concent 33g/dL (31-37) Red Cell Distribution Width 14.2% (11.5-14.5) Platelet Count 122x10^3/uL (140-400) Neutrophils (%) (Auto) 73% (31-73) Lymphocytes (%) (Auto) 19% (24-48) Monocytes (%) (Auto) 8% (0-9) Eosinophils (%) (Auto) 0% (0-3) Basophils (%) (Auto) 1% (0-3) Neutrophils # (Auto) 4.9x10^3uL (1.8-7.7) Lymphocytes # (Auto) 1.3x10^3/uL (1.0-4.8) Monocytes # (Auto) 0.5x10^3/uL (0.0-1.1) Eosinophils # (Auto) 0.0x10^3/uL (0.0-0.7) Basophils # (Auto) 0.0x10^3/uL (0.0-0.2) Heparin Anti-Xa Act, Unfractionated 0.22IU/mL (0.30-0.70) 0.23IU/mL (0.30-0.70) 0.38IU/mL (0.30-0.70) 0.55IU/mL (0.30-0.70) Sodium Level 143mmol/L (136-145) Potassium Level 3.0mmol/L (3.5-5.1) Chloride Level 100mmol/L (98-107) Carbon Dioxide Level 37mmol/L (21-32) Anion Gap 6 (6-14) Blood Urea Nitrogen 13mg/dL (7-20) Creatinine 0.6mg/dL (0.6-1.0) Estimated GFR (Cockcroft-Gault) 98.8 Glucose Level 146mg/dL (70-99) Calcium Level 8.6mg/dL (8.5-10.1) Magnesium Level 2.1mg/dL (1.8-2.4) Laboratory Tests Test 07/08/16 19:55 07/09/16 03:44 07/09/16 09:45 Heparin Anti-Xa Act, Unfractionated 0.23IU/mL (0.30-0.70) 0.38IU/mL (0.30-0.70) 0.55IU/mL (0.30-0.70) Medications Active Scripts Medications Dose Route/Sig Days Date Category Crestor (Rosuvastatin Calcium) 10 Mg Tablet 1 Tab PO DAILY 11/10/15 Reported Actonel (Risedronate Sodium) 35 Mg Tablet 1 Tab PO WEEKLY 11/10/15 Reported Celexa (Citalopram Hydrobromide) 10 Mg Tablet 1 Tab PO DAILY 11/10/15 Reported Amlodipine Besylate 5 Mg Tablet 5 Mg PO DAILY 11/10/15 Reported Levothyroxine Sodium 88 Mcg Tablet 88 Mcg PO DAILYAC 11/10/15 Reported Atorvastatin Calcium 20 Mg Tablet 20 Mg PO HS 11/10/15 Reported Furosemide 40 Mg Tablet 1 Tab PO DAILY 11/10/15 Reported Carvedilol 6.25 Mg Tablet 1 Tab PO BID 11/10/15 Reported Clonazepam 1 Mg Tablet 1 Tab PO QHS 11/10/15 Reported Potassium Gluconate 500 Mg Tablet 550 Mg PO DAILY 11/10/15 Reported Meloxicam 15 Mg Tablet 1 Tab PO DAILY 11/10/15 Reported Cozaar (Losartan Potassium) 100 Mg Tablet 100 Mg PO DAILY 11/10/15 Reported Pantoprazole Sodium 40 Mg Tablet.dr 1 Tab PO DAILY 11/10/15 Reported Comments cxr reviewed, Coarse interstitial opacities throughout the bilateral lungs. A portion of this is likely secondary to chronic lung disease but superimposed interstitial edema or infiltrate is possible Impression . 1. Omjbi-gu-cuztcpo respiratory failure. 2. Acute exacerbation of chronic obstructive pulmonary disease. 3. Chronic heart failure, possible in conjunction with acute systolic heart failure. EF 10%/ moderate to severe MR 4. Elevated troponin level, suspect secondary to increased demand. 5. Hypothyroidism. 6. Acute metabolic encephalopathy, improved. Plan . HOME WHEN CLEARED BY CARD TAPER PRED CHRONIC OXYGEN KIMBERLEY NEFF MD Jul 09, 2016 13:36
--- NOTE | 2016-07-09 14:48 | PDOC ---
PROGRESS NOTES Chief Complaint Chief Complaint 1. Hypoxic encephalopathy with underlying dementia 2. Acute on chronic respiratory failure with COPD , CHF 3. Acute on chronic systolic CHF: last known EF at 40-45%, now 10% 4. Elevated troponin, possible 2/2 demanding ischemia 5. PAFIB: 6. h/o CAD 7. HTN/HLP 8. Hypothyroidism 9. Diarrhea resolved. 10. Hallucinations. Plan Heparin gtt, cardiology following, planning to stop PRN BIPAP HR controlled Supplemental oxygen Diuresis, HR controlled. Monitor electrolytes palliative consult to discuss goals of care Pt declined to go to SNU PRN Haldol History of Present Illness History of Present Illness no fever sob better off BIPAP Vitals Vitals Vital Signs Date Time Temp Pulse Resp B/P Pulse Ox O2 Delivery O2 Flow Rate FiO2 07/09/16 11:18 94 Nasal Cannula 3.0 07/09/16 10:29 18 07/09/16 10:15 97.9 67 121/63 97.9 Physical Exam General: Alert, mild distress Heart: Regular rate, Normal S1, Normal S2 Lungs: Clear, Other Abdomen: Normal bowel sounds Extremities: No cyanosis, Other (1+ bilateral LE pitting edema) Skin: No breakdown, No significant lesion Labs LABS Laboratory Tests Test 07/08/16 19:55 07/09/16 03:44 07/09/16 09:45 Heparin Anti-Xa Act, Unfractionated 0.23IU/mL (0.30-0.70) 0.38IU/mL (0.30-0.70) 0.55IU/mL (0.30-0.70) Assessment and Plan Assessmemt and Plan Problems Medical Problems: (1) COPD (chronic obstructive pulmonary disease) Status: Acute (2) Respiratory failure Status: Acute Problems: Comment Review of Relevant I have reviewed the following items jovanna (where applicable) has been applied. Labs Laboratory Tests Test 07/08/16 06:51 07/08/16 19:55 07/09/16 03:44 07/09/16 09:45 White Blood Count 6.7x10^3/uL (4.0-11.0) Red Blood Count 3.87x10^6/uL (3.50-5.40) Hemoglobin 12.2g/dL (12.0-15.5) Hematocrit 37.1% (36.0-47.0) Mean Corpuscular Volume 96fL (79-100) Mean Corpuscular Hemoglobin 32pg (25-35) Mean Corpuscular Hemoglobin Concent 33g/dL (31-37) Red Cell Distribution Width 14.2% (11.5-14.5) Platelet Count 122x10^3/uL (140-400) Neutrophils (%) (Auto) 73% (31-73) Lymphocytes (%) (Auto) 19% (24-48) Monocytes (%) (Auto) 8% (0-9) Eosinophils (%) (Auto) 0% (0-3) Basophils (%) (Auto) 1% (0-3) Neutrophils # (Auto) 4.9x10^3uL (1.8-7.7) Lymphocytes # (Auto) 1.3x10^3/uL (1.0-4.8) Monocytes # (Auto) 0.5x10^3/uL (0.0-1.1) Eosinophils # (Auto) 0.0x10^3/uL (0.0-0.7) Basophils # (Auto) 0.0x10^3/uL (0.0-0.2) Heparin Anti-Xa Act, Unfractionated 0.22IU/mL (0.30-0.70) 0.23IU/mL (0.30-0.70) 0.38IU/mL (0.30-0.70) 0.55IU/mL (0.30-0.70) Sodium Level 143mmol/L (136-145) Potassium Level 3.0mmol/L (3.5-5.1) Chloride Level 100mmol/L (98-107) Carbon Dioxide Level 37mmol/L (21-32) Anion Gap 6 (6-14) Blood Urea Nitrogen 13mg/dL (7-20) Creatinine 0.6mg/dL (0.6-1.0) Estimated GFR (Cockcroft-Gault) 98.8 Glucose Level 146mg/dL (70-99) Calcium Level 8.6mg/dL (8.5-10.1) Magnesium Level 2.1mg/dL (1.8-2.4) Laboratory Tests Test 07/08/16 19:55 07/09/16 03:44 07/09/16 09:45 Heparin Anti-Xa Act, Unfractionated 0.23IU/mL (0.30-0.70) 0.38IU/mL (0.30-0.70) 0.55IU/mL (0.30-0.70) Microbiology 07/05/16 Blood Culture - Preliminary, Resulted NO GROWTH AFTER 4 DAYS Medications Current Medications Methylprednisolone Sodium Succinate (Solu-Medrol 125mg Vial) 125 mg 1X ONCE IV Last administered on 07/05/16 09:18; Start 07/05/16 at 09:00; Stop 07/05/16 at 09:02; Status DC Albuterol/ Ipratropium 3 ml 3 ml 1X ONCE NEB Last administered on 07/05/16 10 :40; Start 07/05/16 at 09:15; Stop 07/05/16 at 09:16; Status DC Ceftriaxone Sodium 50 ml @ 100 mls/hr 1X ONCE IV Last administered on 10:48; Start 07/05/16 at 10:15; Stop 07/05/16 at 10:44; Status DC Azithromycin (Zithromax 500mg Ivpb For Omni) 250 ml @ 250 mls/hr 1X ONCE IV Last administered on 07/05/16 20:39; Start 07/05/16 at 10:15; Stop 07/05/16 at 11:14; Status DC Amlodipine Besylate (Norvasc) 5 mg DAILY PO Last administered on 07/06/16 08: 16; Start 07/05/16 at 14:00; Stop 07/07/16 at 11:13; Status DC Atorvastatin Calcium (Lipitor) 20 mg HS PO ; Start 07/05/16 at 21:00; Stop 07/05 at 21:00; Status DC Carvedilol (Coreg) 6.25 mg BIDWMEALS PO Last administered on 07/07/16 17:10; Start 07/05/16 at 17:00; Stop 07/08/16 at 10:18; Status DC Citalopram Hydrobromide (Celexa) 10 mg DAILY PO Last administered on 07/09/16 09:29; Start 07/05/16 at 14:00 Clonazepam (Klonopin) 1 mg QHS PO Last administered on 07/08/16 20:19; Start 07/05/16 at 21:00 Furosemide (Lasix) 40 mg DAILY PO Last administered on 07/09/16 09:29; Start 07/05/16 at 14:00 Levothyroxine Sodium (Synthroid) 88 mcg DAILYAC PO Last administered on 08:20; Start 07/06/16 at 07:30 Pantoprazole Sodium (Protonix) 40 mg DAILYAC PO Last administered on 07/09/16 08:20; Start 07/05/16 at 16:30 Losartan Potassium (Cozaar) 100 mg DAILY PO Last administered on 07/09/16 09: 29; Start 07/05/16 at 14:00 Non-Formulary Medication 550 mg DAILY PO ; Start 07/06/16 at 09:00; Stop at 09:00; Status DC Furosemide 20 mg 20 mg 1X ONCE IVP Last administered on 07/05/16 17:22; Start 07/05/16 at 14:15; Stop 07/05/16 at 14:20; Status DC Sodium Chloride (Iv Sodium Chloride 0.9% 1000ml Bag) 1,000 ml @ 60 mls/hr [id number] IV Last administered on 07/06/16 15:31; Start 07/05/16 at 14:15; Stop 07/06/16 at 23:34; Status DC Atorvastatin Calcium 40 mg 40 mg QHS PO Last administered on 07/08/16 20:19; Start 07/05/16 at 21:00 Heparin Sodium/ Dextrose 500 ml @ 0 mls/hr CONT PRN IV SEE I/O RECORD Last administered on 07/09/16 05:35; Start 07/05/16 at 18:00; Stop 07/09/16 at 13:55 ; Status DC Heparin Sodium (Porcine) 1,150 unit PRN Q6HRS PRN IV FOR UFH LEVEL LESS THAN 0.2; Start 07/05/16 at 18:00; Stop 07/09/16 at 13:55; Status DC Albuterol Sulfate (Ventolin Neb Soln) 2.5 mg QID NEB ; Start 07/05/16 at 21:00; Stop 07/05/16 at 21:00; Status DC Albuterol Sulfate (Ventolin Neb Soln) 2.5 mg PRN Q2HR PRN NEB [id number]; Start at 18:00 Prednisone (Prednisone) 30 mg DAILY PO Last administered on 07/09/16 09:28; Start 07/06/16 at 09:00 Albuterol/ Ipratropium (Duoneb) 3 ml RTQID NEB Last administered on 07/07/16 07:42; Start 07/05/16 at 20:00; Stop 07/07/16 at 12:18; Status DC Haloperidol Lactate (Haldol) 1 mg PRN Q1HR PRN IVP MODERATE AGITATION; Start at 23:45 Haloperidol Lactate (Haldol) 2 mg PRN Q1HR PRN IVP SEVERE AGITATION Last administered on 07/05/16 23:42; Start 07/05/16 at 23:45 Ondansetron HCl (Zofran) 4 mg PRN Q6HRS PRN IV NAUSEA/VOMITING Last administered on 07/06/16 03:49; Start 07/06/16 at 03:45 Info (Anti-Coagulation Monitoring By Pharmacy) 1 each PRN DAILY PRN MC SEE COMMENTS Last administered on 07/08/16 13:23; Start 07/06/16 at 07:30; Stop at 13:56; Status DC Acetaminophen (Tylenol) 650 mg PRN Q6HRS PRN PO MILD PAIN / TEMP Last administered on 07/07/16 08:24; Start 07/06/16 at 08:15 Tramadol HCl (Ultram) 25 mg PRN Q6HRS PRN PO MODERATE - SEVERE PAIN Last administered on 07/09/16 09:29; Start 07/06/16 at 08:15 Digoxin (Lanoxin) 250 mcg 1X ONCE IV Last administered on 07/07/16 04:38; Start 07/07/16 at 04:45; Stop 07/07/16 at 04:46; Status DC Digoxin (Lanoxin) 250 mcg 1X ONCE IV Last administered on 07/07/16 08:23; Start 07/07/16 at 08:30; Stop 07/07/16 at 08:31; Status DC Ipratropium [place] (Atrovent) 0.5 mg RTQID NEB Last administered on 07/09/16 11:16; Start 07/07/16 at 16:00 Diltiazem HCl 120 mg 120 mg DAILY PO Last administered on 07/07/16 16:02; Start 07/07/16 at 16:00; Stop 07/08/16 at 10:18; Status DC Diltiazem HCl/ Dextrose (Cardizem) 125 ml @ 0 mls/hr CONT PRN IV SEE I/O RECORD Last administered on 07/07/16 18:33; Start 07/07/16 at 18:00; Stop 07/08 at 10:18; Status DC Diltiazem HCl (Cardizem) 5 mg 1X ONCE IVP Last administered on 07/07/16 18:28 ; Start 07/07/16 at 18:15; Stop 07/07/16 at 18:16; Status DC Potassium Chloride (Klor-Con) 40 meq Q4HRS PO Last administered on 07/08/16 13 :04; Start 07/08/16 at 09:20; Stop 07/08/16 at 14:04; Status DC Metoprolol Tartrate (Lopressor) 50 mg BID PO Last administered on 07/09/16 09: 28; Start 07/08/16 at 21:00 Aspirin (Ecotrin) 81 mg DAILYWBKFT PO Last administered on 07/09/16 09:29; Start 07/08/16 at 11:00 Potassium Chloride (Klor-Con) 20 meq DAILYWBKFT PO ; Start 07/09/16 at 14:00 Clopidogrel Bisulfate (Plavix) 75 mg DAILYWBKFT PO ; Start 07/09/16 at 14:00 Active Scripts Active Reported Crestor (Rosuvastatin Calcium) 10 Mg Tablet 1 Tab PO DAILY Actonel (Risedronate Sodium) 35 Mg Tablet 1 Tab PO WEEKLY Celexa (Citalopram Hydrobromide) 10 Mg Tablet 1 Tab PO DAILY Amlodipine Besylate 5 Mg Tablet 5 Mg PO DAILY Levothyroxine Sodium 88 Mcg Tablet 88 Mcg PO DAILYAC Atorvastatin Calcium 20 Mg Tablet 20 Mg PO HS Furosemide 40 Mg Tablet 1 Tab PO DAILY Carvedilol 6.25 Mg Tablet 1 Tab PO BID Clonazepam 1 Mg Tablet 1 Tab PO QHS Potassium Gluconate 500 Mg Tablet 550 Mg PO DAILY Meloxicam 15 Mg Tablet 1 Tab PO DAILY Cozaar (Losartan Potassium) 100 Mg Tablet 100 Mg PO DAILY Pantoprazole Sodium 40 Mg Tablet.dr 1 Tab PO DAILY Vitals/I & O Vital Sign - Last 24 Hours 07/08/16 07/08/16 07/08/16 07/08/16 15:00 15:30 19:10 19:40 Temp 98.6 98.6 98.6 98.6 Pulse 81 77 Resp 20 18 B/P 158/72 129/65 Pulse Ox 94 98 95 O2 Delivery Nasal Cannula Nasal Cannula Nasal Cannula Nasal Cannula O2 Flow Rate 2.0 3.0 3.0 2.0 07/08/16 07/08/16 07/08/16 07/08/16 20:00 20:18 21:07 22:45 Temp 97.2 97.2 Pulse 77 59 Resp 20 B/P 129/65 127/79 Pulse Ox 97 O2 Delivery Nasal Cannula BiPAP/CPAP BiPAP/CPAP O2 Flow Rate 3.0 07/08/16 07/09/16 07/09/16 07/09/16 23:17 01:02 03:00 03:10 Temp 97.1 97.1 Pulse 52 Resp 22 B/P 138/79 Pulse Ox 95 95 95 O2 Delivery BiPAP/CPAP BiPAP/CPAP BiPAP/CPAP BiPAP/CPAP 07/09/16 07/09/16 07/09/16 07/09/16 05:39 07:12 07:30 08:00 Temp 98.9 98.9 Pulse 66 Resp 19 B/P 155/73 Pulse Ox 97 93 O2 Delivery BiPAP/CPAP Nasal Cannula Nasal Cannula Nasal Cannula O2 Flow Rate 3.0 3.0 3.0 07/09/16 07/09/16 07/09/16 07/09/16 09:28 09:29 09:29 10:15 Temp 97.9 97.9 Pulse 66 66 67 Resp 18 20 B/P 155/73 155/73 121/63 Pulse Ox 93 94 O2 Delivery Nasal Cannula Nasal Cannula O2 Flow Rate 3.0 3.0 07/09/16 07/09/16 10:29 11:18 Resp 18 Pulse Ox 94 94 O2 Delivery Nasal Cannula Nasal Cannula O2 Flow Rate 3.0 3.0 Intake and Output 07/08/16 07/08/16 07/09/16 15:00 23:00 07:00 Intake Total 840 ml 180 ml Output Total 1250 ml 200 ml Balance -410 ml -20 ml ANTONIO HENRY MD Jul 09, 2016 14:48
--- NOTE | 2016-07-09 14:53 | PDOC2 ---
PALLIATIVE CARE Palliative Care Note Palliative Care Consult requested by Dr. Albright to address goals of care Diagnosis: Hypoxic Encephalopathy, dementia, CHF EF 10%; NSTMI; at fib, HTN ; Hypothyroidism; pre-renal azotemia. Patient alert. Slightly confused at times. States she wants to go home. Lives with her who will be starting dialysis. Spoke with per phone. Patient is primarily bedbound --only gets up to BSC. Oxygen dependent. Reviewed medical condition. They have no children or help at home. States he assists in making her medical decisions. He would be interested in Hospice at Home. Understands he likely will need more help at home. Discussed Code Status: He requests DNR/DNI. Will address with patient. Plan Family Meeting tomorrow at 1030. KARYNA DICKINSON Jul 09, 2016 14:53
[2016-07-09 15:03] VITALS: BP 152/71
[2016-07-09] MEDS: POTASSIUM CHLORIDE 20 MEQ TABLET.ER. PO SCH (15:39)
[2016-07-09] MEDS: CLOPIDOGREL BISULFATE 75 MG TABLET PO SCH (15:39)
[2016-07-09 19:10] VITALS: BP 139/61
[2016-07-09] MEDS: CLONAZEPAM 1 MG TABLET PO SCH (22:33)
[2016-07-09] MEDS: ATORVASTATIN CALCIUM 40 MG TABLET. PO SCH (22:34)
[2016-07-09 23:00] VITALS: BP 134/75
[2016-07-10] VITALS (7 sets, daily range): BP systolic 114–147; BP diastolic 59–68
[2016-07-10] MEDS: IPRATROPIUM BROMIDE 0.5 MG/2.5 ML NEBU. NEB SCH ×4 (07:40→18:54)
[2016-07-10] MEDS: ASPIRIN ENTERIC COATED 81 MG TABLET.DR. PO SCH (07:54)
[2016-07-10] MEDS: LEVOTHYROXINE 88 MCG TABLET PO SCH (07:54)
[2016-07-10] MEDS: PANTOPRAZOLE 40 MG TABLET. PO SCH (07:54)
[2016-07-10] MEDS: PREDNISONE 20 MG TABLET PO SCH (07:54)
[2016-07-10] MEDS: POTASSIUM CHLORIDE 20 MEQ TABLET.ER. PO SCH (08:00)
[2016-07-10] MEDS: METOPROLOL TART IMMED RELEASE 25 MG TABLET PO SCH (09:00)
[2016-07-10] MEDS: CITALOPRAM 10 MG TABLET. PO SCH (09:59)
--- NOTE | 2016-07-10 10:16 | PDOC ---
CARDIO Progress Notes Date and Time Date of Service 07/10/2016 Time of Evaluation 0940 Subjective Subjective: No Chest Pain, No shortness of breath, No Palpitations, No Dizziness, Other (putting lotion on her arm) Vitals Vitals Vital Signs Date Time Temp Pulse Resp B/P Pulse Ox O2 Delivery O2 Flow Rate FiO2 07/10/16 09:00 58 07/10/16 07:41 95 Nasal Cannula 2.0 07/10/16 07:00 97.9 18 127/59 97.9 Weight Weight [ ] Input and Output Intake and Output Intake and Output 07/10/16 07:00 Intake Total 1500 ml Output Total 770 ml Balance 730 ml Intake Oral 1500 ml Output Urine Total 770 ml # Voids 3 # Bowel Movements 1 Microbiology Micro Microbiology 07/05/16 Blood Culture - Final, Complete NO GROWTH AFTER 5 DAYS Physical Exam HEENT: Neck Supple W Full Motion Chest: Symmetric LUNGS: Other (faint basilar crackles) Heart: S1S2, RRR (SB 50s overnight), murmurs (3/6 systolic murmur to LLS border diffusing to apical border) Abdomen: Soft N/T Extremities: No Calf Tenderness, Other (trace LE edema) Neurology: alert, oriented, follow commands Assessment Assessment 1. Acute on chronic systolic CHF: Compensated. 2. Acute respiratory failure/COPD: much improved 3. NSTEMI: peaked troponin 2.4. CP free 4. Severe cardiomyopathy with moderate to severe MR: EF 10-15% 5. PAFIB: Remains on SR/SB lowest 50s otherwise 60-70s 6. CAD: failed follow ups in the past. 7. HTN/HLP 8. Hypothyroidism 9. Prerenal azotemia: resolved 10. Possible noncompliance Recommendations 1. DAPT 2. Continue with diuretic therapy and optimization 3. Continue with ASA for stroke prevention. Not a candidate for bed bug exterminator OAC/ NOAC with high risk for traumatic falls. 4. continue with metoprolol 5. With significant chronic conditions including dementia and frailty, she is likely not a candidate for invasive procedures. 6. Per palliative team family meeting today regarding conservative vs aggressive treatment measures will be needed 7. Recommend SNU when discharge. Follow up in office in 2-3 weeks and will reevaluate. 8. Daily weight and fluid restriction 2 L at least with intake of 1500 ml daily. 9. BMP, LARON Stuart FLASH WELDER Jul 10, 2016 10:15
--- NOTE | 2016-07-10 10:17 | PDOC ---
PROGRESS NOTES Chief Complaint Chief Complaint 1. Hypoxic encephalopathy with underlying dementia 2. Acute on chronic respiratory failure with COPD , CHF 3. Acute on chronic systolic CHF: last known EF at 40-45%, now 10% 4. Elevated troponin, possible 2/2 demanding ischemia 5. PAFIB: 6. h/o CAD 7. HTN/HLP 8. Hypothyroidism 9. Diarrhea resolved. 10. Hallucinations. Plan off heparin gtt, d/w cardiology PRN BIPAP HR controlled Supplemental oxygen Diuresis, HR controlled. Monitor electrolytes d/w palliative consult - family meeting today. Pt declined to go to SNU PRN Haldol History of Present Illness History of Present Illness no fever sob better off BIPAP Vitals Vitals Vital Signs Date Time Temp Pulse Resp B/P Pulse Ox O2 Delivery O2 Flow Rate FiO2 07/10/16 09:00 58 07/10/16 07:41 95 Nasal Cannula 2.0 07/10/16 07:00 97.9 18 127/59 97.9 Physical Exam General: Alert, Oriented X3, mild distress Heart: Regular rate, Normal S1, Normal S2 Lungs: Clear, Other Abdomen: Normal bowel sounds Extremities: No cyanosis, Other Skin: No breakdown, No significant lesion Assessment and Plan Assessmemt and Plan Problems Medical Problems: (1) COPD (chronic obstructive pulmonary disease) Status: Acute (2) Respiratory failure Status: Acute Problems: Comment Review of Relevant I have reviewed the following items jovanna (where applicable) has been applied. Labs Laboratory Tests Test 07/08/16 19:55 07/09/16 03:44 07/09/16 09:45 Heparin Anti-Xa Act, Unfractionated 0.23IU/mL (0.30-0.70) 0.38IU/mL (0.30-0.70) 0.55IU/mL (0.30-0.70) Microbiology 07/05/16 Blood Culture - Final, Complete NO GROWTH AFTER 5 DAYS Medications Current Medications Methylprednisolone Sodium Succinate (Solu-Medrol 125mg Vial) 125 mg 1X ONCE IV Last administered on 07/05/16 09:18; Start 07/05/16 at 09:00; Stop 07/05/16 at 09:02; Status DC Albuterol/ Ipratropium 3 ml 3 ml 1X ONCE NEB Last administered on 07/05/16 10 :40; Start 07/05/16 at 09:15; Stop 07/05/16 at 09:16; Status DC Ceftriaxone Sodium 50 ml @ 100 mls/hr 1X ONCE IV Last administered on 10:48; Start 07/05/16 at 10:15; Stop 07/05/16 at 10:44; Status DC Azithromycin (Zithromax 500mg Ivpb For Omni) 250 ml @ 250 mls/hr 1X ONCE IV Last administered on 07/05/16 20:39; Start 07/05/16 at 10:15; Stop 07/05/16 at 11:14; Status DC Amlodipine Besylate (Norvasc) 5 mg DAILY PO Last administered on 07/06/16 08: 16; Start 07/05/16 at 14:00; Stop 07/07/16 at 11:13; Status DC Atorvastatin Calcium (Lipitor) 20 mg HS PO ; Start 07/05/16 at 21:00; Stop 07/05 at 21:00; Status DC Carvedilol (Coreg) 6.25 mg BIDWMEALS PO Last administered on 07/07/16 17:10; Start 07/05/16 at 17:00; Stop 07/08/16 at 10:18; Status DC Citalopram Hydrobromide (Celexa) 10 mg DAILY PO Last administered on 07/10/16 09:59; Start 07/05/16 at 14:00 Clonazepam (Klonopin) 1 mg QHS PO Last administered on 07/09/16 22:33; Start 07/05/16 at 21:00 Furosemide (Lasix) 40 mg DAILY PO Last administered on 07/09/16 09:29; Start 07/05/16 at 14:00 Levothyroxine Sodium (Synthroid) 88 mcg DAILYAC PO Last administered on 07:54; Start 07/06/16 at 07:30 Pantoprazole Sodium (Protonix) 40 mg DAILYAC PO Last administered on 07/10/16 07:54; Start 07/05/16 at 16:30 Losartan Potassium (Cozaar) 100 mg DAILY PO Last administered on 07/09/16 09: 29; Start 07/05/16 at 14:00 Non-Formulary Medication 550 mg DAILY PO ; Start 07/06/16 at 09:00; Stop at 09:00; Status DC Furosemide 20 mg 20 mg 1X ONCE IVP Last administered on 07/05/16 17:22; Start 07/05/16 at 14:15; Stop 07/05/16 at 14:20; Status DC Sodium Chloride (Iv Sodium Chloride 0.9% 1000ml Bag) 1,000 ml @ 60 mls/hr [id number] IV Last administered on 07/06/16 15:31; Start 07/05/16 at 14:15; Stop 07/06/16 at 23:34; Status DC Atorvastatin Calcium 40 mg 40 mg QHS PO Last administered on 07/09/16 22:34; Start 07/05/16 at 21:00 Heparin Sodium/ Dextrose 500 ml @ 0 mls/hr CONT PRN IV SEE I/O RECORD Last administered on 07/09/16 05:35; Start 07/05/16 at 18:00; Stop 07/09/16 at 13:55 ; Status DC Heparin Sodium (Porcine) 1,150 unit PRN Q6HRS PRN IV FOR UFH LEVEL LESS THAN 0.2; Start 07/05/16 at 18:00; Stop 07/09/16 at 13:55; Status DC Albuterol Sulfate (Ventolin Neb Soln) 2.5 mg QID NEB ; Start 07/05/16 at 21:00; Stop 07/05/16 at 21:00; Status DC Albuterol Sulfate (Ventolin Neb Soln) 2.5 mg PRN Q2HR PRN NEB [id number]; Start at 18:00 Prednisone (Prednisone) 30 mg DAILY PO Last administered on 07/10/16 07:54; Start 07/06/16 at 09:00 Albuterol/ Ipratropium (Duoneb) 3 ml RTQID NEB Last administered on 07/07/16 07:42; Start 07/05/16 at 20:00; Stop 07/07/16 at 12:18; Status DC Haloperidol Lactate (Haldol) 1 mg PRN Q1HR PRN IVP MODERATE AGITATION; Start at 23:45 Haloperidol Lactate (Haldol) 2 mg PRN Q1HR PRN IVP SEVERE AGITATION Last administered on 07/05/16 23:42; Start 07/05/16 at 23:45 Ondansetron HCl (Zofran) 4 mg PRN Q6HRS PRN IV NAUSEA/VOMITING Last administered on 07/06/16 03:49; Start 07/06/16 at 03:45 Info (Anti-Coagulation Monitoring By Pharmacy) 1 each PRN DAILY PRN MC SEE COMMENTS Last administered on 07/08/16 13:23; Start 07/06/16 at 07:30; Stop at 13:56; Status DC Acetaminophen (Tylenol) 650 mg PRN Q6HRS PRN PO MILD PAIN / TEMP Last administered on 07/07/16 08:24; Start 07/06/16 at 08:15 Tramadol HCl (Ultram) 25 mg PRN Q6HRS PRN PO MODERATE - SEVERE PAIN Last administered on 07/09/16 22:35; Start 07/06/16 at 08:15 Digoxin (Lanoxin) 250 mcg 1X ONCE IV Last administered on 07/07/16 04:38; Start 07/07/16 at 04:45; Stop 07/07/16 at 04:46; Status DC Digoxin (Lanoxin) 250 mcg 1X ONCE IV Last administered on 07/07/16 08:23; Start 07/07/16 at 08:30; Stop 07/07/16 at 08:31; Status DC Ipratropium [place] (Atrovent) 0.5 mg RTQID NEB Last administered on 07/10/16 07:40; Start 07/07/16 at 16:00 Diltiazem HCl 120 mg 120 mg DAILY PO Last administered on 07/07/16 16:02; Start 07/07/16 at 16:00; Stop 07/08/16 at 10:18; Status DC Diltiazem HCl/ Dextrose (Cardizem) 125 ml @ 0 mls/hr CONT PRN IV SEE I/O RECORD Last administered on 07/07/16 18:33; Start 07/07/16 at 18:00; Stop 07/08 at 10:18; Status DC Diltiazem HCl (Cardizem) 5 mg 1X ONCE IVP Last administered on 07/07/16 18:28 ; Start 07/07/16 at 18:15; Stop 07/07/16 at 18:16; Status DC Potassium Chloride (Klor-Con) 40 meq Q4HRS PO Last administered on 07/08/16 13 :04; Start 07/08/16 at 09:20; Stop 07/08/16 at 14:04; Status DC Metoprolol Tartrate (Lopressor) 50 mg BID PO Last administered on 07/09/16 22: 34; Start 07/08/16 at 21:00; Stop 07/10/16 at 10:06; Status DC Aspirin (Ecotrin) 81 mg DAILYWBKFT PO Last administered on 07/10/16 07:54; Start 07/08/16 at 11:00 Potassium Chloride (Klor-Con) 20 meq DAILYWBKFT PO Last administered on 08:00; Start 07/09/16 at 14:00 Clopidogrel Bisulfate (Plavix) 75 mg DAILYWBKFT PO Last administered on 15:39; Start 07/09/16 at 14:00 Metoprolol Tartrate (Lopressor) 25 mg BID PO ; Start 07/10/16 at 21:00 Active Scripts Active Reported Crestor (Rosuvastatin Calcium) 10 Mg Tablet 1 Tab PO DAILY Actonel (Risedronate Sodium) 35 Mg Tablet 1 Tab PO WEEKLY Celexa (Citalopram Hydrobromide) 10 Mg Tablet 1 Tab PO DAILY Amlodipine Besylate 5 Mg Tablet 5 Mg PO DAILY Levothyroxine Sodium 88 Mcg Tablet 88 Mcg PO DAILYAC Atorvastatin Calcium 20 Mg Tablet 20 Mg PO HS Furosemide 40 Mg Tablet 1 Tab PO DAILY Carvedilol 6.25 Mg Tablet 1 Tab PO BID Clonazepam 1 Mg Tablet 1 Tab PO QHS Potassium Gluconate 500 Mg Tablet 550 Mg PO DAILY Meloxicam 15 Mg Tablet 1 Tab PO DAILY Cozaar (Losartan Potassium) 100 Mg Tablet 100 Mg PO DAILY Pantoprazole Sodium 40 Mg Tablet. 1 Tab PO DAILY Vitals/I & O Vital Sign - Last 24 Hours 07/09/16 07/09/16 07/09/16 07/09/16 11:18 15:03 16:04 19:10 Temp 98.2 98.5 98.2 98.5 Pulse 71 73 Resp 18 20 B/P 152/71 139/61 Pulse Ox 94 96 95 94 O2 Delivery Nasal Cannula Nasal Cannula Nasal Cannula Nasal Cannula O2 Flow Rate 3.0 3.0 3.0 2.0 07/09/16 07/09/16 07/09/16 07/09/16 19:21 20:00 22:34 22:35 Pulse 73 Resp 20 B/P 139/61 Pulse Ox 94 94 O2 Delivery Nasal Cannula Nasal Cannula Nasal Cannula O2 Flow Rate 3.0 3.0 3.0 07/09/16 07/09/16 07/10/16 07/10/16 23:00 23:40 03:15 07:00 Temp 97.9 97.9 97.9 97.9 97.9 97.9 Pulse 63 51 56 Resp 20 20 14 18 B/P 134/75 147/68 127/59 Pulse Ox 93 93 94 96 O2 Delivery Nasal Cannula Nasal Cannula Nasal Cannula Nasal Cannula O2 Flow Rate 2.0 2.0 2.0 2.0 07/10/16 07/10/16 07:41 09:00 Pulse 58 Pulse Ox 95 O2 Delivery Nasal Cannula O2 Flow Rate 2.0 Intake and Output 07/09/16 07/09/16 07/10/16 15:00 23:00 07:00 Intake Total 1500 ml Output Total 220 ml 250 ml 300 ml Balance -220 ml 1250 ml -300 ml ANTONIO HENRY MD Jul 10, 2016 10:17
[2016-07-10] MEDS: CLOPIDOGREL BISULFATE 75 MG TABLET PO SCH (10:18)
[2016-07-10] MEDS: LOSARTAN POTASSIUM 50 MG TABLET. PO SCH (10:18)
[2016-07-10] MEDS: FUROSEMIDE 40 MG TABLET PO SCH (10:18)
[2016-07-10] MEDS: TRAMADOL 50 MG TABLET. PO PRN (10:20)
[2016-07-10 10:39] LABS: CALCIUM 9.3 mg/dL (8.5-10.1); CREATININE 0.7 mg/dL (0.6-1.0); GFR 82.7; MAGNESIUM 1.9 mg/dL (1.8-2.4); POTASSIUM 4.2 mmol/L (3.5-5.1)
--- NOTE | 2016-07-10 11:12 | PDOC ---
PULMONARY PROGRESS NOTES Subjective feel better Vitals Vital Signs Date Time Temp Pulse Resp B/P Pulse Ox O2 Delivery O2 Flow Rate FiO2 07/10/16 10:20 18 95 Nasal Cannula 2.0 07/10/16 10:18 68 132/61 07/10/16 07:00 97.9 97.9 General: Alert, No acute distress HEENT: Other (nc at perrl, ) Lungs: Clear, Other Cardiovascular: S1, S2 Abdomen: Soft, Non-tender Neuro Exam: Alert Extremities: No Edema Skin: Warm Labs Laboratory Tests Test 07/08/16 19:55 07/09/16 03:44 07/09/16 09:45 07/10/16 09:25 Heparin Anti-Xa Act, Unfractionated 0.23IU/mL (0.30-0.70) 0.38IU/mL (0.30-0.70) 0.55IU/mL (0.30-0.70) Sodium Level 139mmol/L (136-145) Potassium Level 4.2mmol/L (3.5-5.1) Chloride Level 100mmol/L (98-107) Carbon Dioxide Level 35mmol/L (21-32) Anion Gap 4 (6-14) Blood Urea Nitrogen 22mg/dL (7-20) Creatinine 0.7mg/dL (0.6-1.0) Estimated GFR (Cockcroft-Gault) 82.7 Glucose Level 180mg/dL (70-99) Calcium Level 9.3mg/dL (8.5-10.1) Magnesium Level 1.9mg/dL (1.8-2.4) Laboratory Tests Test 07/10/16 09:25 Sodium Level 139mmol/L (136-145) Potassium Level 4.2mmol/L (3.5-5.1) Chloride Level 100mmol/L (98-107) Carbon Dioxide Level 35mmol/L (21-32) Anion Gap 4 (6-14) Blood Urea Nitrogen 22mg/dL (7-20) Creatinine 0.7mg/dL (0.6-1.0) Estimated GFR (Cockcroft-Gault) 82.7 Glucose Level 180mg/dL (70-99) Calcium Level 9.3mg/dL (8.5-10.1) Magnesium Level 1.9mg/dL (1.8-2.4) Medications Active Scripts Medications Dose Route/Sig Days Date Category Crestor (Rosuvastatin Calcium) 10 Mg Tablet 1 Tab PO DAILY 11/10/15 Reported Actonel (Risedronate Sodium) 35 Mg Tablet 1 Tab PO WEEKLY 11/10/15 Reported Celexa (Citalopram Hydrobromide) 10 Mg Tablet 1 Tab PO DAILY 11/10/15 Reported Amlodipine Besylate 5 Mg Tablet 5 Mg PO DAILY 11/10/15 Reported Levothyroxine Sodium 88 Mcg Tablet 88 Mcg PO DAILYAC 11/10/15 Reported Atorvastatin Calcium 20 Mg Tablet 20 Mg PO HS 11/10/15 Reported Furosemide 40 Mg Tablet 1 Tab PO DAILY 11/10/15 Reported Carvedilol 6.25 Mg Tablet 1 Tab PO BID 11/10/15 Reported Clonazepam 1 Mg Tablet 1 Tab PO QHS 11/10/15 Reported Potassium Gluconate 500 Mg Tablet 550 Mg PO DAILY 11/10/15 Reported Meloxicam 15 Mg Tablet 1 Tab PO DAILY 11/10/15 Reported Cozaar (Losartan Potassium) 100 Mg Tablet 100 Mg PO DAILY 11/10/15 Reported Pantoprazole Sodium 40 Mg Tablet.dr 1 Tab PO DAILY 11/10/15 Reported Comments cxr reviewed, Coarse interstitial opacities throughout the bilateral lungs. A portion of this is likely secondary to chronic lung disease but superimposed interstitial edema or infiltrate is possible Impression . 1. [id number] respiratory failure. 2. Acute exacerbation of chronic obstructive pulmonary disease. 3. Chronic heart failure, possible in conjunction with acute systolic heart failure. EF 10%/ moderate to severe MR 4. Elevated troponin level, suspect secondary to increased demand. 5. Hypothyroidism. 6. Acute metabolic encephalopathy, improved. Plan . HOME WHEN CLEARED BY CARD ABG COMPENSATED TAPER PRED CHRONIC OXYGEN KIMBERLEY NEFF MD Jul 10, 2016 11:12
--- NOTE | 2016-07-10 11:36 | PDOC2 ---
PALLIATIVE CARE Palliative Care Note Palliative Care Met with patient and . Had long conversation with per phone yesterday. Patient intermittently confused. [place]//DPOA agrees she does not always understand or follow through with things. Requested copy of DPOA They have no family involved in their care. stated he may need to start dialysis and will need someone to be with her while he is gone to dialysis. Discussed options for care: Full aggressive care including more studies vs home with hospice. would like assistance from hospice and continue with medical management. [facility] would also like information on [facility] for more assistance Discussed DME; Patient not sure if she wants Hospital Bed. will need oxygen. has BSC Discussed Code Status: Patient clearly states she does not want resuscitation. Understands she likely would without this attempt. Outside the Hospital DNR/DNI form signed by . Spoke with Zee ZULUAGA who will assist patient and select an hospice agency. Also will need to confirm DME Plan: Home with Hosipce DNR/DNI. will need physician signature and order. KARYNA DICKINSON Jul 10, 2016 11:36
[2016-07-10] MEDS ORDERED: INFLUENZA VAX SCREEN BY RX. MC ONE (15:45)
[2016-07-10] MEDS ORDERED: FLU VACC QUAD 2016-17 (36MOS+)/PF 0.5 ML SYRINGE. VAX IM ONE (16:30)
[2016-07-10] MEDS: CLONAZEPAM 1 MG TABLET PO SCH (20:37)
[2016-07-10] MEDS: ATORVASTATIN CALCIUM 40 MG TABLET. PO SCH (20:37)
[2016-07-10] MEDS: METOPROLOL TART IMMED RELEASE 50 MG TABLET PO SCH (20:37)
[2016-07-10] MEDS ORDERED: METOPROLOL TART IMMED RELEASE 25 MG TABLET PO SCH (21:00)
[2016-07-11 03:10] VITALS: BP 129/60
[2016-07-11] MEDS: LEVOTHYROXINE 88 MCG TABLET PO SCH (06:00)
[2016-07-11] MEDS: PANTOPRAZOLE 40 MG TABLET. PO SCH (06:00)
[2016-07-11 06:48] VITALS: BP 129/60
[2016-07-11] MEDS: IPRATROPIUM BROMIDE 0.5 MG/2.5 ML NEBU. NEB SCH ×2 (08:14→11:51)
[2016-07-11] MEDS: CITALOPRAM 10 MG TABLET. PO SCH (08:25)
[2016-07-11] MEDS: LOSARTAN POTASSIUM 50 MG TABLET. PO SCH (08:25)
[2016-07-11] MEDS: PREDNISONE 20 MG TABLET PO SCH (08:25)
[2016-07-11] MEDS: CLOPIDOGREL BISULFATE 75 MG TABLET PO SCH (08:26)
[2016-07-11] MEDS: POTASSIUM CHLORIDE 20 MEQ TABLET.ER. PO SCH (08:26)
[2016-07-11] MEDS: FUROSEMIDE 40 MG TABLET PO SCH (08:26)
[2016-07-11] MEDS: ASPIRIN ENTERIC COATED 81 MG TABLET.DR. PO SCH (08:27)
[2016-07-11] MEDS: METOPROLOL TART IMMED RELEASE 50 MG TABLET PO SCH (08:34)
[2016-07-11] MEDS: CALCIUM CARBONATE 500 MG TAB.CHEW PO PRN ×2 (10:40→14:30)
[2016-07-11 11:08] VITALS: BP 130/60
[2016-07-11] MEDS ORDERED: ACET500T68 PO (11:28)
--- NOTE | 2016-07-11 12:54 | PDOC ---
PULMONARY PROGRESS NOTES Subjective feel better Vitals Vital Signs Date Time Temp Pulse Resp B/P Pulse Ox O2 Delivery O2 Flow Rate FiO2 07/11/16 11:53 Nasal Cannula 2.0 07/11/16 11:08 97.8 77 22 130/60 90 97.8 General: Alert, No acute distress HEENT: Other (nc at perrl, ) Lungs: Clear, Other Cardiovascular: S1, S2 Abdomen: Soft, Non-tender Neuro Exam: Alert Extremities: No Edema Skin: Warm Labs Laboratory Tests Test 07/10/16 09:25 Sodium Level 139mmol/L (136-145) Potassium Level 4.2mmol/L (3.5-5.1) Chloride Level 100mmol/L (98-107) Carbon Dioxide Level 35mmol/L (21-32) Anion Gap 4 (6-14) Blood Urea Nitrogen 22mg/dL (7-20) Creatinine 0.7mg/dL (0.6-1.0) Estimated GFR (Cockcroft-Gault) 82.7 Glucose Level 180mg/dL (70-99) Calcium Level 9.3mg/dL (8.5-10.1) Magnesium Level 1.9mg/dL (1.8-2.4) Medications Active Scripts Medications Dose Route/Sig Days Date Category Crestor (Rosuvastatin Calcium) 10 Mg Tablet 1 Tab PO DAILY 11/10/15 Reported Actonel (Risedronate Sodium) 35 Mg Tablet 1 Tab PO WEEKLY 11/10/15 Reported Celexa (Citalopram Hydrobromide) 10 Mg Tablet 1 Tab PO DAILY 11/10/15 Reported Amlodipine Besylate 5 Mg Tablet 5 Mg PO DAILY 11/10/15 Reported Levothyroxine Sodium 88 Mcg Tablet 88 Mcg PO DAILYAC 11/10/15 Reported Atorvastatin Calcium 20 Mg Tablet 20 Mg PO HS 11/10/15 Reported Furosemide 40 Mg Tablet 1 Tab PO DAILY 11/10/15 Reported Carvedilol 6.25 Mg Tablet 1 Tab PO BID 11/10/15 Reported Clonazepam 1 Mg Tablet 1 Tab PO QHS 11/10/15 Reported Potassium Gluconate 500 Mg Tablet 550 Mg PO DAILY 11/10/15 Reported Meloxicam 15 Mg Tablet 1 Tab PO DAILY 11/10/15 Reported Cozaar (Losartan Potassium) 100 Mg Tablet 100 Mg PO DAILY 11/10/15 Reported Pantoprazole Sodium 40 Mg Tablet.dr 1 Tab PO DAILY 11/10/15 Reported Comments cxr reviewed, Coarse interstitial opacities throughout the bilateral lungs. A portion of this is likely secondary to chronic lung disease but superimposed interstitial edema or infiltrate is possible Impression . 1. [id number] respiratory failure. 2. Acute exacerbation of chronic obstructive pulmonary disease. 3. Chronic heart failure, possible in conjunction with acute systolic heart failure. EF 10%/ moderate to severe MR 4. Elevated troponin level, suspect secondary to increased demand. 5. Hypothyroidism. 6. Acute metabolic encephalopathy, improved. Plan . HOME WHEN CLEARED BY CARD G COMPENSATED TAPER PRED CHRONIC OXYGEN KIMBERLEY NEFF MD Jul 11, 2016 12:54
[2016-07-11 14:28] VITALS: BP 116/60
[2016-07-11] MEDS ORDERED: ASPI81TA9 PO (14:50)
[2016-07-11] MEDS ORDERED: POTA20TA4 PO (14:50)
[2016-07-11] MEDS ORDERED: METO50TA2 PO (14:50)
[2016-07-11] MEDS ORDERED: ATOR40TA59 PO (14:50)
[2016-07-11] MEDS ORDERED: CLOP75TA PO (14:50)
[2016-07-11] MEDS ORDERED: TRAM50TA PO (14:50)
== END 2016-07-11 16:10 | disposition home health service (06) | DRG 280 ==
LOC: ER 08:45 → 2 SOUTH 10:00
PROVIDERS: ADMIT Internal Medicine Hematology & Oncology; ATTEND Internal Medicine Hematology & Oncology
PROC: 5A09357 Assistance with Respiratory Ventilation, Less than 24 Consecutive Hours, Continuous Positive Airway Pressure (ICD-10-PCS; principal; 2016-07-05)
DX: I11.0 Hypertensive heart disease with heart failure (principal); I21.4 Non-ST elevation (NSTEMI) myocardial infarction; J96.21 Acute and chronic respiratory failure with hypoxia; G93.1 Anoxic brain damage, not elsewhere classified; J44.1 Chronic obstructive pulmonary disease with (acute) exacerbation; I50.23 Acute on chronic systolic (congestive) heart failure; I25.10 Atherosclerotic heart disease of native coronary artery without angina pectoris; I42.9 Cardiomyopathy, unspecified; E03.9 Hypothyroidism, unspecified; E78.5 Hyperlipidemia, unspecified; F03.90 Unspecified dementia, unspecified severity, without behavioral disturbance, psychotic disturbance, mood disturbance, and anxiety; G25.81 Restless legs syndrome; K21.9 Gastro-esophageal reflux disease without esophagitis; I34.0 Nonrheumatic mitral (valve) insufficiency; I48.0 Paroxysmal atrial fibrillation; I73.9 Peripheral vascular disease, unspecified; F32.9 Major depressive disorder, single episode, unspecified; F41.9 Anxiety disorder, unspecified; G89.29 Other chronic pain; M19.90 Unspecified osteoarthritis, unspecified site; M85.80 Other specified disorders of bone density and structure, unspecified site; Z66 Do not resuscitate; Z51.5 Encounter for palliative care; Z87.01 Personal history of pneumonia (recurrent); Z74.01 Bed confinement status; Z82.49 Family history of ischemic heart disease and other diseases of the circulatory system; Z86.73 Personal history of transient ischemic attack (TIA), and cerebral infarction without residual deficits; Z87.891 Personal history of nicotine dependence; Z90.49 Acquired absence of other specified parts of digestive tract; Z99.3 Dependence on wheelchair; Z99.81 Dependence on supplemental oxygen; Z88.8 Allergy status to other drugs, medicaments and biological substances; Z90.710 Acquired absence of both cervix and uterus; Z87.81 Personal history of (healed) traumatic fracture
CPT/HCPCS: 36415; 36600; 70450; 71010; 80048; 80061; 80076; 81001; 82553; 82805; 83605; 83735; 83880; 84443; 84484; 85027; 85520; 85610; 87040; 87804; 90686; 93005; 93306; 94250; 94640; 94660; 94760; 96365; 96375; J0456; J0690; J1160; J1630; J2405; J2930; J3490; J7030; J7512; J7620; J7644; 99285-25